=== PATIENT | female | born 1950 | race Caucasian/White ===

== ENCOUNTER 2018-08-24 17:27 | Inpatient (IN) | payer MEDICARE ==
[~2018-08-24] VITALS: Ht 157.5 cm; Wt 73.8 kg
[2018-08-24] MEDS ORDERED: ASPIRIN 81 MG TAB PO ONE (19:30)
--- NOTE | 2018-08-24 19:37 | ERD ---
ER Documentation Chief Complaint Chief Complaint prerssure like chect pain x 3 weeks got worse today; numbness on fingers HPI This is a very pleasant 67-year-old female history of hypertension who presents to the emergency room complaining of chest pain. The patient has had approximately 3 to 4 weeks of symptoms that include central chest pressure that is usually worse with exertion. Today she had some shortness of breath and n umbness and tingling. She has no chest pain currently. She denies pleuritic pain fevers chills or hemoptysis. During the patient's encounter translation services were utilized Language: Bahamian Source: Family ROS All systems reviewed and are negative except as per history of present illness. Allergies Allergies: Coded Allergies: No Known Allergy (Unverified , 08/24/18) Physical Exam Vitals Vital Signs Date Temp Pulse Resp B/P (MAP) Pulse Ox O2 O2 Flow FiO2 Time Delivery Rate 08/24/18 98.6 91 18 182/86 98 17:34 (118) Physical Exam General: Well developed, well nourished, no acute distress Head: Normocephalic, atraumatic. Eyes: Pupils equally reactive, EOM intact ENT: Moist mucous membranes Neck: Supple, no lymphadenopathy Respiratory: Lungs clear bilaterally, no distress Cardiovascular: RRR, no murmurs, rubs, or gallops Abdominal: Soft, non-tender, non-distended, no peritoneal signs : Deferred MSK: No edema, no unilateral swelling, 5/5 strength Neurologic: Alert and oriented, moving all extremities, normal speech, no focal weakness, no cerebellar signs Skin: No rash Psych: Normal mood Result Diagram: 08/24/18190408/24/181904 Results 24 hrs Laboratory Tests Test 08/24/18 19:05 White Blood Count 5.8 10^3/ul Red Blood Count 4.75 10^6/ul Hemoglobin 13.2 g/dl Hematocrit 41.4 % Mean Corpuscular Volume 87.2 fl Mean Corpuscular Hemoglobin 27.8 pg Mean Corpuscular Hemoglobin Concent 31.9 g/dl Red Cell Distribution Width 13.1 % Platelet Count 261 10^3/UL Mean Platelet Volume 11.3 fl Immature Granulocytes % 0.200 % Neutrophils % 53.6 % Lymphocytes % 38.8 % Monocytes % 4.8 % Eosinophils % 1.9 % Basophils % 0.7 % Nucleated Red Blood Cells % 0.0 /100WBC Immature Granulocytes # 0.010 10^3/ul Neutrophils # 3.1 10^3/ul Lymphocytes # 2.3 10^3/ul Monocytes # 0.3 10^3/ul Eosinophils # 0.1 10^3/ul Basophils # 0.0 10^3/ul Nucleated Red Blood Cells # 0.0 10^3/ul Sodium Level 143 mmol/L Potassium Level 4.0 mmol/L Chloride Level 105 mmol/L Carbon Dioxide Level 29 mmol/L Anion Gap 9 Blood Urea Nitrogen 12 mg/dl Creatinine 1.02 mg/dl Est Glomerular Filtrat Rate mL/min 54 mL/min Glucose Level 170 mg/dl Calcium Level 9.8 mg/dl Troponin I < 0.012 ng/ml Current Medications Medications Dose Sig/Rosario Start Time Status Last (Trade) Ordered Route PRN Stop Time Admin Dose Reason Admin Aspirin 324 mg ONCE ONCE 08/24/18 DC (Aspirin) PO 19:30 08/24/18 19:31 Procedures/MDM EKG, MONITORS, & DIAGNOSTIC IMAGING: EKG: I reviewed and interpreted a 12-lead EKG. Rhythm: Normal sinus rhythm ST Changes: No contiguous ST segment elevations T waves: No contiguous T wave inversions Impression: [No evidence of acute cardiac ischemia] Repeat EKG: EKG: I reviewed and interpreted a 12-lead EKG. Rhythm: Normal sinus rhythm ST Changes: No contiguous ST segment elevations T waves: Inferolateral TWI, new Impression: Abnormal EKG Chest x-ray: I reviewed and interpreted a 1 view of the chest Mediastinum: No enlargement Cardiac silhouette: No cardiomegaly Airspace: Clear lung kelley bilaterally without evidence of pneumothorax Bones: No evidence of fracture PROCEDURES: [None] LAB INTERPRETATION: * Negative troponin MEDICAL DECISION MAKING: The patient's history, physical exam and clinical presentation is concerning for possible cardiogenic etiology and acute coronary syndrome. Based on the patient's clinical exam and history and risk factors, I have a much lower clinical concern for pulmonary embolism, acute aortic dissection, pn eumothorax, pneumonia, cardiac tamponade HEART Score: 5 MACE Rate: up to 16.6% Shared Decision Making: We had a conversation regarding risk stratification, MACE rate, and the risks, benefits, alternatives of disposition planning options. Disposition planning: Admit ER COURSE: * No chest pain currently. Aspirin provided. * Patient remains asymptomatic. The patient will be admitted for further m anagement. CONSULTATION: [None] DISPOSITION PLAN: Telemetry admission for management of chest pain to rule out acute coronary syndrome, serial enzymes, risk stratification and consideration of provocative testing CONSULTATION: Accepting care team and consultations: I discussed the current laboratory data, diagnostic imaging and emergency care provided. Admitting team: Dr. Novak Admitting team indication: Insurance directed Departure Diagnosis: Primary Impression: Chest pain Chest pain type: unspecified Qualified Codes: R07.9 - Chest pain, unspecified Condition: Stable ZELDA RED MD August 24, 2018 19:36
[2018-08-24] MEDS ORDERED: ONDANSETRON 4 MG INJ IV PRN (20:00)
[2018-08-24] MEDS ORDERED: ACETAMINOPHEN 325 MG TAB PO PRN ×2 (20:00→23:00)
[2018-08-24 21:43] VITALS: PULSE 56
[2018-08-24 21:54] VITALS: Ht 157.5 cm; Wt 73.8 kg
[2018-08-24] MEDS ORDERED: LISI10TA2 PO (22:42)
[2018-08-24] MEDS ORDERED: PANT20TA3 PO (22:42)
[2018-08-24] MEDS ORDERED: NITROGLYCERIN (SL) 0.4 MG TAB SL PRN (23:00)
[2018-08-24] MEDS ORDERED: NACL 0.9% 3 ML SYG IV SCH (23:00)
[2018-08-24] MEDS ORDERED: ALPRAZOLAM 1 MG TAB PO ONE (23:00)
--- NOTE | 2018-08-24 23:02 | HP ---
Date/Time of Note Date/Time of Note DATE: 08/24/18 TIME: 23:02 Assessment/Plan VTE Prophylaxis Pharmacological prophylaxis: heparin Lines/Catheters IV Catheter Type (from Nrsg): Saline Lock Assessment/Plan Assessment/Plan 1. Chest pain: Rule out ACS -Supplemental oxygen, aspirin, as needed nitro -Serial troponin and 2D echo -Cardiology consult -Check A1c, fasting lipid and TSH in a.m. -Continue Protonix as it may be from GERD 2. Hypertension: Adjust antihypertensive as needed 3. Probable diabetes diabetes: Check A1c in a.m. 4. Mild renal insufficiency, presumed acute -Monitor for now. Avoid nephrotoxins 5. Gastritis: Continue Protonix Result Diagram: 08/24/18190408/24/181904 Results 24hrs Laboratory Tests Test 08/24/18 19:05 White Blood Count 5.8 Red Blood Count 4.75 Hemoglobin 13.2 Hematocrit 41.4 Mean Corpuscular Volume 87.2 Mean Corpuscular Hemoglobin 27.8 L Mean Corpuscular Hemoglobin Concent 31.9 L Red Cell Distribution Width 13.1 Platelet Count 261 Mean Platelet Volume 11.3 H Immature Granulocytes % 0.200 Neutrophils % 53.6 Lymphocytes % 38.8 Monocytes % 4.8 Eosinophils % 1.9 Basophils % 0.7 Nucleated Red Blood Cells % 0.0 Immature Granulocytes # 0.010 Neutrophils # 3.1 Lymphocytes # 2.3 Monocytes # 0.3 Eosinophils # 0.1 Basophils # 0.0 Nucleated Red Blood Cells # 0.0 Sodium Level 143 Potassium Level 4.0 Chloride Level 105 Carbon Dioxide Level 29 Anion Gap 9 Blood Urea Nitrogen 12 Creatinine 1.02 H Est Glomerular Filtrat Rate mL/min 54 L Glucose Level 170 Calcium Level 9.8 Troponin I < 0.012 HPI/ROS Admit Date/Time Admit Date/Time August 24, 2018 at 19:57 Hx of Present Illness This is a 67-year-old female with a history of hypertension, type 2 diabetes, dyslipidemia, gastritis who presented to ER complaining of chest pain. Chest pain is mainly localized in the mid chest and described as tightness and sharp. Is been going on for about a month. But somehow worse on exertion and also reported minimal shortness of breath. In the ER, first troponin was negative and second EKG shows inferolateral T wave inversion. PMH/Family/Social Past Medical History Medical History: diabetes, high cholesterol, hypertension Medications Current Medications Ondansetron HCl (Zofran Inj) 4 mg ER BRIDGE PRN IV NAUSEA/VOMITING; Start 08/24/18 at 20:00; Stop 08/25/18 at 19:59 Acetaminophen (Tylenol Tab) 650 mg ER BRIDGE PRN PO .MILD PAIN 1-3 OR TEMP; Start 08/24/18 at 20:00; Stop 08/25/18 at 19:59 Coded Allergies: No Known Allergy (Unverified , 08/24/18) Past Surgical History Past Surgical Hx: other (See HPI) Family History Significant Family History: no pertinent family hx Social History Alcohol Use: none Smoking Status: Never smoker Drug Use: none Exam/Review of Systems Vital Signs Vitals Vital Signs Date Temp Pulse Resp B/P (MAP) Pulse Ox O2 O2 Flow FiO2 Time Delivery Rate 08/24/18 56 21:43 08/24/18 98.6 14 143/67 100 Room Air 21:12 (92) Exam Constitutional: alert, oriented, well developed Head: normocephalic, atraumatic Eyes: EOMI, PERRL Respiratory: clear to auscultation, normal air movement Cardiovascular: regular rate and rhythm, nl pulses Gastrointestinal: soft, non-tender Extremities: normal pulses EM SPIVEY MD August 24, 2018 23:02
[2018-08-25] VITALS (13 sets, daily range): BP systolic 112–127; BP diastolic 56–77; PULSE 54–83; RESP 18–20
[2018-08-25] MEDS: PANTOPRAZOLE SODIUM 20 MG TABEC PO SCH ×2 (06:55→18:37)
--- NOTE | 2018-08-25 10:45 | CONS ---
Assessment/Plan Assessment/Plan Hospital Course (Demo Recall) 1. Chest pain consistent with possible unstable angina/acute coronary syndrome 2. Hypertension 3. Diabetes 4. Dyslipidemia 5. Abnormal EKG 6. Family history of coronary artery disease Recommendations: Troponin have been negative so far and currently patient is chest pain-free. Continue with aspirin Lipitor was added Diabetic management as per internal medicine We will schedule patient for stress nuclear study today. If abnormal will proceed with a coronary angiography. Above discussed with the patient and her daughter. Thank you for his referral. We will continue following with you FRANKY HUDSON MD [facility] Consultation Date/Type/Reason Admit Date/Time August 24, 2018 at 19:57 Date of Consultation: August 25, 2018 Type of Consult Cardiology Reason for Consultation CP Requesting Provider: JORGE A ALLEN MD Date/Time of Note DATE: 08/25/18 TIME: 10:39 Hx of Present Illness Interventional cardiology consultation note Chief complaint: Chest pain Reason for consult: Chest pain History of present illness: Thank you for this referral. History was from the patient from review of the chart discussion with her daughter. This is a pleasant 68 woman with history of hypertension, borderline diabetes, dyslipidemia, strong family history of coronary artery who presents to the emergency room because of chest pain. Patient stated over the past 3 weeks he has intermittent chest pain anteriorly pressure-like. Feeling of tightness in her throat. He usually comes when she does activity. However it has been getting worse and has been getting intermittently at rest as well. Patient states that she was seen by her primary care doctor yesterday because of this pain and was referred to the emergency room. Currently patient is chest pain- free. Troponin have been negative. Cardiology consultation was asked for. Allergies: No known drug allergies Medications were reviewed as per medical reconciliation sheet. She states she takes cholesterol medication as well as blood pressure medication. Her diabetic medication does not take it regularly Family history: Multiple family members including brother sister) have had coronary artery disease and [place] Social history: Does not smoke or drink Past medical history: Borderline diabetes, hypertension, dyslipidemia Review of system: + intermittent headache. Also at nighttime sometimes he gets short of breath when she lies down and she has sleep on the side Patient denies all others except for above-mentioned Past Medical History Home Meds Reported Medications Pantoprazole* (Pantoprazole*) 20 Mg Tablet., 20 MG PO BID, TAB 08/24/18 Lisinopril* (Lisinopril*) 10 Mg Tablet, 10 MG PO DAILY, #30 TAB 08/24/18 Medications Current Medications Ondansetron HCl (Zofran Inj) 4 mg ER BRIDGE PRN IV NAUSEA/VOMITING; Start 08/24/18 at 20:00; Stop 08/25/18 at 19:59 Acetaminophen (Tylenol Tab) 650 mg ER BRIDGE PRN PO .MILD PAIN 1-3 OR TEMP Last administered on 08/25/18at 07:04; Admin Dose 650 MG; Start 08/24/18 at 20:00; Stop 08/25/18 at 19:59 IV Flush (NS 3 ml) 3 ml PER PROTOCOL IV ; Start 08/24/18 at 23:00 Ondansetron HCl (Zofran Inj) 4 mg Q6H PRN IV NAUSEA/VOMITING; Start 08/24/18 at 23:00 Aspirin (Aspirin) 81 mg DAILY PO ; Start 08/25/18 at 09:00 Nitroglycerin (Nitroglycerin (Sl Tab) 0.4 Mg) 1 tab Q5M PRN SL .CHEST PAIN; Start 08/24/18 at 23:00 Acetaminophen (Tylenol Tab) 650 mg Q6H PRN PO .PAIN 1-3 OR TEMP; Start 08/24/18 at 23:00 Heparin Sodium (Porcine) (Heparin (5000 Units/1ml)) 5,000 unit Q12 SC ; Start 08/25/18 at 09:00 Albuterol/ Ipratropium (Duoneb) 3 ml Q2H RESP THERAPY PRN HHN SHORTNESS OF BREATH; Start 08/24/18 at 23:00 Lisinopril (Zestril) 10 mg DAILY PO ; Start 08/25/18 at 09:00 Pantoprazole Sodium (Protonix) 20 mg BID@0600,1800 PO Last administered on 08/25/18at 06:55; Admin Dose 20 MG; Start 08/25/18 at 06:00 Allergies: Coded Allergies: No Known Allergy (Unverified , 08/24/18) Past Surgical History Past Surgical Hx: other (See HPI) Social History Alcohol Use: none Smoking Status: Never smoker Drug Use: none Exam/Review of Systems Vital Signs Vitals Vital Signs Date Temp Pulse Resp B/P (MAP) Pulse Ox O2 O2 Flow FiO2 Time Delivery Rate 08/25/18 77 08:00 08/25/18 98.1 19 117/69 98 07:55 (85) 08/25/18 Room Air 00:25 Intake and Output 08/24/18 08/24/18 08/25/18 1515:00 23:00 07:00 IntakeIntake Total 440 ml BalanceBalance 440 ml Exam Exam General: no acute distress HEENT: NC/AT. pupils are equal. round. NECK: NO JVD. no stridor. CV: RRR. systolic murmur; no gallop or rubs. PULM: no wheezing or rhonchi. GI: SOFT, NT, ND, no rebound or guarding Extremity: trace B/L LE edema. no clubbing. neuro: awake and alert, OX3. Psych: calm and pleasant rectal: deferred EKG was personally reviewed and normal sinus rhythm nonspecific ST-T wave abnormalities Chest x-ray shows: No acute disease. Calcified aorta consistent with atherosclerotic disease Labs Result Diagram: 08/25/1862608/25/18 06 Results 24hrs Laboratory Tests Test 08/24/18 19:05 08/25/18 00:40 08/25/18 06:27 White Blood Count 5.8 5.3 Red Blood Count 4.75 4.53 Hemoglobin 13.2 12.5 Hematocrit 41.4 39.5 Mean Corpuscular Volume 87.2 87.2 Mean Corpuscular Hemoglobin 27.8 L 27.6 L Mean Corpuscular Hemoglobin Concent 31.9 L 31.6 L Red Cell Distribution Width 13.1 13.2 Platelet Count 261 248 Mean Platelet Volume 11.3 H 11.3 H Immature Granulocytes % 0.200 0.200 Neutrophils % 53.6 39.1 Lymphocytes % 38.8 50.5 Monocytes % 4.8 6.1 Eosinophils % 1.9 3.2 Basophils % 0.7 0.9 Nucleated Red Blood Cells % 0.0 0.0 Immature Granulocytes # 0.010 0.010 Neutrophils # 3.1 2.1 Lymphocytes # 2.3 2.7 Monocytes # 0.3 0.3 Eosinophils # 0.1 0.2 Basophils # 0.0 0.1 Nucleated Red Blood Cells # 0.0 0.0 Sodium Level 143 141 Potassium Level 4.0 4.4 Chloride Level 105 107 Carbon Dioxide Level 29 25 Anion Gap 9 9 Blood Urea Nitrogen 12 15 Creatinine 1.02 H 0.71 Est Glomerular Filtrat Rate mL/min 54 L > 60 Glucose Level 170 111 # Calcium Level 9.8 9.9 Troponin I < 0.012 < 0.012 < 0.012 Creatine Kinase 163 133 Creatine Kinase Index 1.2 1.1 Creatinine Kinase MB (Mass) 1.95 1.48 Hemoglobin A1c 5.9 Magnesium Level 2.2 Total Bilirubin 0.2 Direct Bilirubin 0.00 Indirect Bilirubin 0.2 Aspartate Amino Transf (AST/SGOT) 10 L Alanine Aminotransferase (ALT/SGPT) 20 Alkaline Phosphatase 61 Total Protein 6.8 Albumin 4.0 Globulin 2.80 Albumin/Globulin Ratio 1.42 Triglycerides Level 105 Cholesterol Level 188 LDL Cholesterol, Calculated 131 HDL Cholesterol 36 Cholesterol/HDL Ratio 5.2 Thyroid Stimulating Hormone (TSH) 0.752 Medications Medications Current Medications Ondansetron HCl (Zofran Inj) 4 mg ER BRIDGE PRN IV NAUSEA/VOMITING; Start 08/24/18 at 20:00; Stop 08/25/18 at 19:59 Acetaminophen (Tylenol Tab) 650 mg ER BRIDGE PRN PO .MILD PAIN 1-3 OR TEMP Last administered on 08/25/18at 07:04; Admin Dose 650 MG; Start 08/24/18 at 20:00; Stop 08/25/18 at 19:59 IV Flush (NS 3 ml) 3 ml PER PROTOCOL IV ; Start 08/24/18 at 23:00 Ondansetron HCl (Zofran Inj) 4 mg Q6H PRN IV NAUSEA/VOMITING; Start 08/24/18 at 23:00 Aspirin (Aspirin) 81 mg DAILY PO ; Start 08/25/18 at 09:00 Nitroglycerin (Nitroglycerin (Sl Tab) 0.4 Mg) 1 tab Q5M PRN SL .CHEST PAIN; Start 08/24/18 at 23:00 Acetaminophen (Tylenol Tab) 650 mg Q6H PRN PO .PAIN 1-3 OR TEMP; Start 08/24/18 at 23:00 Heparin Sodium (Porcine) (Heparin (5000 Units/1ml)) 5,000 unit Q12 SC ; Start 08/25/18 at 09:00 Albuterol/ Ipratropium (Duoneb) 3 ml Q2H RESP THERAPY PRN HHN SHORTNESS OF BREATH; Start 08/24/18 at 23:00 Lisinopril (Zestril) 10 mg DAILY PO ; Start 08/25/18 at 09:00 Pantoprazole Sodium (Protonix) 20 mg BID@0600,1800 PO Last administered on 08/25/18at 06:55; Admin Dose 20 MG; Start 08/25/18 at 06:00 FRANKY HUDSON MD August 25, 2018 10:45
[2018-08-25] MEDS: LISINOPRIL 10 MG TAB PO SCH (10:54)
[2018-08-25] MEDS: ASPIRIN 81 MG TAB PO SCH (10:54)
[2018-08-25] MEDS: HEPARIN 5,000 UNIT/1 ML VIAL SC SCH ×2 (11:06→21:33)
--- NOTE | 2018-08-25 12:05 | PN ---
Date/Time of Note Date/Time of Note DATE: 08/25/18 TIME: 12:03 Assessment/Plan VTE Prophylaxis SCD contraindicated: low risk/ambulating Pharmacological prophylaxis: heparin Pharm contraindication: low risk/ambulating Lines/Catheters IV Catheter Type (from Nrsg): Saline Lock Assessment/Plan Problems: (1) Chest pain Status: Acute Comment: Further troponins are negative. However getting the history from this patient this sounds very consistent with crescendo angina. As such I am in agreement with cardiology that she needs to have a stress test now before she leaves the hospital and if the stress test and said any type of abnormality we should proceed with coronary angiography. Qualifiers: Chest pain type: unspecified Qualified Codes: R07.9 - Chest pain, unspecified (2) Essential hypertension Status: Chronic Comment: Adequate control with EARLENE inhibitor. (3) Hyperlipidemia Status: Chronic Comment: Statin therapy Qualifiers: Hyperlipidemia type: pure hypercholesterolemia Qualified Codes: E78.00 - Pure hypercholesterolemia, unspecified Result Diagram: 08/25/1827 08/25/18626 Results 24hrs Laboratory Tests Test 08/24/18 19:05 08/25/18 00:40 08/25/18 06:27 White Blood Count 5.8 5.3 Red Blood Count 4.75 4.53 Hemoglobin 13.2 12.5 Hematocrit 41.4 39.5 Mean Corpuscular Volume 87.2 87.2 Mean Corpuscular Hemoglobin 27.8 L 27.6 L Mean Corpuscular Hemoglobin Concent 31.9 L 31.6 L Red Cell Distribution Width 13.1 13.2 Platelet Count 261 248 Mean Platelet Volume 11.3 H 11.3 H Immature Granulocytes % 0.200 0.200 Neutrophils % 53.6 39.1 Lymphocytes % 38.8 50.5 Monocytes % 4.8 6.1 Eosinophils % 1.9 3.2 Basophils % 0.7 0.9 Nucleated Red Blood Cells % 0.0 0.0 Immature Granulocytes # 0.010 0.010 Neutrophils # 3.1 2.1 Lymphocytes # 2.3 2.7 Monocytes # 0.3 0.3 Eosinophils # 0.1 0.2 Basophils # 0.0 0.1 Nucleated Red Blood Cells # 0.0 0.0 Sodium Level 143 141 Potassium Level 4.0 4.4 Chloride Level 105 107 Carbon Dioxide Level 29 25 Anion Gap 9 9 Blood Urea Nitrogen 12 15 Creatinine 1.02 H 0.71 Est Glomerular Filtrat Rate mL/min 54 L > 60 Glucose Level 170 111 # Calcium Level 9.8 9.9 Troponin I < 0.012 < 0.012 < 0.012 Creatine Kinase 163 133 Creatine Kinase Index 1.2 1.1 Creatinine Kinase MB (Mass) 1.95 1.48 Hemoglobin A1c 5.9 Magnesium Level 2.2 Total Bilirubin 0.2 Direct Bilirubin 0.00 Indirect Bilirubin 0.2 Aspartate Amino Transf (AST/SGOT) 10 L Alanine Aminotransferase (ALT/SGPT) 20 Alkaline Phosphatase 61 Total Protein 6.8 Albumin 4.0 Globulin 2.80 Albumin/Globulin Ratio 1.42 Triglycerides Level 105 Cholesterol Level 188 LDL Cholesterol, Calculated 131 HDL Cholesterol 36 Cholesterol/HDL Ratio 5.2 Thyroid Stimulating Hormone (TSH) 0.752 Subjective 24 Hr Interval Summary Free Text/Dictation Patient reports at rest no further symptoms. Constitutional: no complaints Respiratory: no complaints Cardiovascular: no complaints Gastrointestinal: no complaints Genitourinary: no complaints Exam/Review of Systems Exam Vitals Vital Signs Date Temp Pulse Resp B/P (MAP) Pulse Ox O2 O2 Flow FiO2 Time Delivery Rate 08/25/18 98.6 79 19 116/77 97 11:37 (90) 08/25/18 Room Air 00:25 Intake and Output 08/24/18 08/24/18 08/25/18 1515:00 23:00 07:00 IntakeIntake Total 440 ml BalanceBalance 440 ml Exam Pleasant and somewhat stoic female Constitutional: alert, oriented Respiratory: clear to auscultation, normal air movement Cardiovascular: regular rate and rhythm, nl pulses Gastrointestinal: soft, nl liver, spleen, non-tender Results Results 24hrs Laboratory Tests Test 08/24/18 19:05 08/25/18 00:40 08/25/18 06:27 White Blood Count 5.8 5.3 Red Blood Count 4.75 4.53 Hemoglobin 13.2 12.5 Hematocrit 41.4 39.5 Mean Corpuscular Volume 87.2 87.2 Mean Corpuscular Hemoglobin 27.8 L 27.6 L Mean Corpuscular Hemoglobin Concent 31.9 L 31.6 L Red Cell Distribution Width 13.1 13.2 Platelet Count 261 248 Mean Platelet Volume 11.3 H 11.3 H Immature Granulocytes % 0.200 0.200 Neutrophils % 53.6 39.1 Lymphocytes % 38.8 50.5 Monocytes % 4.8 6.1 Eosinophils % 1.9 3.2 Basophils % 0.7 0.9 Nucleated Red Blood Cells % 0.0 0.0 Immature Granulocytes # 0.010 0.010 Neutrophils # 3.1 2.1 Lymphocytes # 2.3 2.7 Monocytes # 0.3 0.3 Eosinophils # 0.1 0.2 Basophils # 0.0 0.1 Nucleated Red Blood Cells # 0.0 0.0 Sodium Level 143 141 Potassium Level 4.0 4.4 Chloride Level 105 107 Carbon Dioxide Level 29 25 Anion Gap 9 9 Blood Urea Nitrogen 12 15 Creatinine 1.02 H 0.71 Est Glomerular Filtrat Rate mL/min 54 L > 60 Glucose Level 170 111 # Calcium Level 9.8 9.9 Troponin I < 0.012 < 0.012 < 0.012 Creatine Kinase 163 133 Creatine Kinase Index 1.2 1.1 Creatinine Kinase MB (Mass) 1.95 1.48 Hemoglobin A1c 5.9 Magnesium Level 2.2 Total Bilirubin 0.2 Direct Bilirubin 0.00 Indirect Bilirubin 0.2 Aspartate Amino Transf (AST/SGOT) 10 L Alanine Aminotransferase (ALT/SGPT) 20 Alkaline Phosphatase 61 Total Protein 6.8 Albumin 4.0 Globulin 2.80 Albumin/Globulin Ratio 1.42 Triglycerides Level 105 Cholesterol Level 188 LDL Cholesterol, Calculated 131 HDL Cholesterol 36 Cholesterol/HDL Ratio 5.2 Thyroid Stimulating Hormone (TSH) 0.752 Medications Medication Current Medications IV Flush (NS 3 ml) 3 ml PER PROTOCOL IV ; Start 08/24/18 at 23:00 Ondansetron HCl (Zofran Inj) 4 mg Q6H PRN IV NAUSEA/VOMITING; Start 08/24/18 at 23:00 Aspirin (Aspirin) 81 mg DAILY PO Last administered on 08/25/18at 10:54; Admin Dose 81 MG; Start 08/25/18 at 09:00 Nitroglycerin (Nitroglycerin (Sl Tab) 0.4 Mg) 1 tab Q5M PRN SL .CHEST PAIN; Start 08/24/18 at 23:00 Acetaminophen (Tylenol Tab) 650 mg Q6H PRN PO .PAIN 1-3 OR TEMP; Start 08/24/18 at 23:00 Heparin Sodium (Porcine) (Heparin (5000 Units/1ml)) 5,000 unit Q12 SC Last administered on 08/25/18at 11:06; Admin Dose 5,000 UNIT; Start 08/25/18 at 09:00 Albuterol/ Ipratropium (Duoneb) 3 ml Q2H RESP THERAPY PRN HHN SHORTNESS OF BREATH; Start 08/24/18 at 23:00 Lisinopril (Zestril) 10 mg DAILY PO Last administered on 08/25/18at 10:54; Admin Dose 10 MG; Start 08/25/18 at 09:00 Pantoprazole Sodium (Protonix) 20 mg BID@0600,1800 PO Last administered on 08/25/18at 06:55; Admin Dose 20 MG; Start 08/25/18 at 06:00 Atorvastatin Calcium (Lipitor) 80 mg HS PO ; Start 08/25/18 at 21:00 JORGE A ALLEN MD August 25, 2018 12:05
--- NOTE | 2018-08-25 13:50 | RADRPT ---
Echocardiogram Report Patient Name: DELIA COXPatient ID: [id number] : 1950 (67y 9m)Study Date: 08/25/2018 11:09:03 AM Gender: FAccession #: [id number] [place] [facility] [place] Location: Ref.Physician: LOUIS SHARIF Height(Cm): 157 BSA: 1.79Weight(Kg): 73.5 Quality: AdequateAccount #: Procedures: Echocardiographic Report: Transthoracic echocardiogram with complete 2D, M-Mode, and Doppler examination, poor subcostal images. Indications: Acute Coronary Syndrome. Measurements: 2D/M Mode Doppler Measurement Value Normal Range Measurement Value Normal Range LVIDd 2D 4.3 [ 3.8 - 5.2 ] cm AV Peak J Luis 1.1 [ 100.0 - 170.0 ] cm/se c LVIDs 2D 2.7 [ 2.2 - 3.5 ] cm AV Peak PG 5.0 [ 2.0 - 9.0 ] mmHg LVPWd 2D 0.7 [ 0.6 - 0.9 ] cm LVOT Peak J Luis 0.8 [ 70.0 - 110.0 ] cm/sec IVSd 2D 0.9 [ 0.6 - 0.9 ] cm LVOT Peak PG 3.0 [ 2.0 - 6.0 ] mmHg AoR Diam 2D 3.1 [ 2.3 - 3.1 ] cm MV E Peak J Luis 0.7 [ 60.0 - 130.0 ] cm/sec EDV 2D 84.9 [ 46.0 - 106.0 ] ml MV A Peak J Luis 0.9 [ 100.0 - 120.0 ] cm/se c ESV 2D 27.8 [ 14.0 - 42.0 ] ml MV E/A 0.8 [ 0.8 - 1.5 ] ratio EF 2D 67.3 [ 54.0 - 74.0 ] percent MV PHT 68.0 [ 20.0 - 100.0 ] msec LA Dimen 2D 3.6 [ 2.7 - 3.8 ] cm MV Decel Time 232 [ 104 - 258 ] msec MV Decel [place] 3 Lat E` J Luis 0.1 [ 10.0 - 15.0 ] cm/sec Lateral E/E` 7.1 [ 1.0 - 2.0 ] ratio Med E` J Luis 0.1 cm/sec MV E/A 0.8 [ 0.8 - 1.5 ] ratio MVA PHT 3.2 [ 2.0 - 4.0 ] cm2 TR Peak J Luis 2.0 [ 100.0 - 280.0 ] cm/se c TR Peak PG 17.0 mmHg PV Peak J Luis 0.8 [ 40.0 - 80.0 ] cm/sec PV Peak PG 2.0 mmHg RVSP 27.0 [ 10.0 - 36.0 ] mmHg RA Pressure 10.0 mmHg Findings: Left Ventricle: Normal left ventricular systolic function. Normal left ventricular cavity size. Ejection fraction is visually estimated at 60 %. Tissue Doppler/Mitral Doppler indices are consistent with impaired relaxation (Stage I diastolic dysfunction). E/E'= 9. Right Ventricle: Normal right ventricular size. Normal right ventricular systolic function. Left Atrium: The left atrium is normal in size. Right Atrium: The right atrium is normal in size. Atrial Septum: Not well visualized. Mitral Valve: Normal appearance and function of the mitral valve with trace physiologic regurgitation. Aortic Valve: No significant aortic stenosis or insufficiency. Aortic cusps appear mildly calcified. Trileaflet aortic valve. Tricuspid Valve: Normal appearance and function of the tricuspid valve with trace physiologic regurgitation. Estimated peak PA systolic pressure 27 mmHg. Pulmonic Valve: Normal pulmonic valve appearance. There is trace pulmonic regurgitation. Pericardium: Normal pericardium with no significant pericardial effusion. Aorta: Normal aortic root. IVC: The IVC is not well visualized. Pulmonary Artery: Normal pulmonary artery size. Conclusions: Normal left ventricular systolic function. Normal left ventricular cavity size. Ejection fraction is visually estimated at 60 %. Tissue Doppler/Mitral Doppler indices are consistent with impaired relaxation (Stage I diastolic dysfunction). E/E'= 9. Normal appearance and function of the mitral valve with trace physiologic regurgitation. No significant aortic stenosis or insufficiency. Aortic cusps appear mildly calcified. Trileaflet aortic valve. Normal appearance and function of the tricuspid valve with trace physiologic regurgitation. Estimated peak PA systolic pressure 27 mmHg. g. Electronically Signed By: Louis Sharif 2018-08-25 13:48:54 PDT
[2018-08-25] MEDS: ACETYLCYSTEINE 600 MG CAP PO SCH ×2 (15:44→21:22)
[2018-08-25] MEDS: RANOLAZINE (SR) 500 MG TAB PO SCH (21:22)
[2018-08-25] MEDS: ATORVASTATIN 80 MG TAB PO SCH (21:22)
[2018-08-25] MEDS ORDERED: ALPRAZOLAM 1 MG TAB PO ONE (22:30)
[2018-08-26] VITALS (20 sets, daily range): BP systolic 110–151; BP diastolic 57–89; PULSE 61–79; RESP 14–20
[2018-08-26] MEDS: PANTOPRAZOLE SODIUM 20 MG TABEC PO SCH ×2 (05:28→18:23)
[2018-08-26] MEDS: RANOLAZINE (SR) 500 MG TAB PO SCH ×2 (07:32→21:44)
[2018-08-26] MEDS: LISINOPRIL 10 MG TAB PO SCH (07:32)
[2018-08-26] MEDS: ACETYLCYSTEINE 600 MG CAP PO SCH ×2 (07:32→21:45)
[2018-08-26] MEDS: METOPROLOL (XL) 25 MG TAB PO SCH (07:32)
[2018-08-26] MEDS: HEPARIN 5,000 UNIT/1 ML VIAL SC SCH (07:32)
[2018-08-26] MEDS: ASPIRIN 81 MG TAB PO SCH (09:12)
--- NOTE | 2018-08-26 11:13 | PN ---
Date/Time of Note Date/Time of Note DATE: 08/26/18 TIME: 11:11 Assessment/Plan VTE Prophylaxis Risk score (from Ns)>0 risk: 4 SCD applied (from Ns): Yes Pharmacological prophylaxis: heparin Lines/Catheters IV [facility]ter [facility]from [facility] Saline Lock Assessment/Plan Problems: (1) Chest pain Status: Acute Comment: Fortunately we do not have any evidence of myocardial injury. However this would classify itself as crescendo and unstable angina. I am in agreement with the station master that left heart catheterization should be done with all possible expediency. Qualifiers: Chest pain type: unspecified Qualified Codes: R07.9 - Chest pain, unspecified (2) Essential hypertension Status: Chronic Comment: Adequate control. He is to beta-blockade under this circumstance (3) Hyperlipidemia Status: Chronic Comment: Full dose statin therapy Qualifiers: Hyperlipidemia type: pure hypercholesterolemia Qualified Codes: E78.00 - Pure hypercholesterolemia, unspecified (4) Impaired glucose tolerance Status: Chronic Comment: Noted. Result Diagram: 08/26/18 0536 08/26/18 0536 Results 24hrs Laboratory Tests Test 08/26/18 05:36 White Blood Count 5.4 Red Blood Count 4.67 Hemoglobin 12.8 Hematocrit 40.9 Mean Corpuscular Volume 87.6 Mean Corpuscular Hemoglobin 27.4 L Mean Corpuscular Hemoglobin Concent 31.3 L Red Cell Distribution Width 13.2 Platelet Count 245 Mean Platelet Volume 11.6 H Immature Granulocytes % 0.400 Neutrophils % 40.1 Lymphocytes % 49.4 Monocytes % 5.9 Eosinophils % 3.3 Basophils % 0.9 Nucleated Red Blood Cells % 0.0 Immature Granulocytes # 0.020 Neutrophils # 2.2 Lymphocytes # 2.7 Monocytes # 0.3 Eosinophils # 0.2 Basophils # 0.1 Nucleated Red Blood Cells # 0.0 Prothrombin Time 13.1 Prothrombin Time Ratio 1.0 INR International Normalized Ratio 0.98 Sodium Level 142 Potassium Level 4.1 Chloride Level 108 Carbon Dioxide Level 23 Anion Gap 11 Blood Urea Nitrogen 16 Creatinine 0.74 Est Glomerular Filtrat Rate mL/min > 60 Glucose Level 134 Calcium Level 9.4 Magnesium Level 2.0 Total Bilirubin 0.2 Direct Bilirubin 0.00 Indirect Bilirubin 0.2 Aspartate Amino Transf (AST/SGOT) 12 L Alanine Aminotransferase (ALT/SGPT) 18 Alkaline Phosphatase 78 Creatine Kinase 101 Creatine Kinase Index 1.4 Creatinine Kinase MB (Mass) 1.39 Troponin I < 0.012 Total Protein 7.3 Albumin 3.9 Globulin 3.40 H Albumin/Globulin Ratio 1.14 Subjective 24 Hr Interval Summary Free Text/Dictation At rest patient is without symptoms. Please note when she did her cardiac imaging study she turned rapidly positive. Both symptomatically and by the test criteria Constitutional: no complaints Respiratory: no complaints Cardiovascular: no complaints Gastrointestinal: no complaints Exam/Review of Systems Exam Vitals Vital Signs Date Temp Pulse Resp B/P (MAP) Pulse Ox O2 O2 Flow FiO2 Time Delivery Rate 08/26/18 70 08:00 08/26/18 97.6 20 125/59 96 Room Air 07:40 (81) Intake and Output 08/25/18 08/25/18 08/26/18 1414:59 22:59 06:59 IntakeIntake Total 300 ml 500 ml BalanceBalance 300 ml 500 ml Constitutional: alert, oriented Respiratory: clear to auscultation, normal air movement Cardiovascular: regular rate and rhythm, nl pulses Gastrointestinal: soft, nl liver, spleen, non-tender Results Results 24hrs Laboratory Tests Test 08/26/18 05:36 White Blood Count 5.4 Red Blood Count 4.67 Hemoglobin 12.8 Hematocrit 40.9 Mean Corpuscular Volume 87.6 Mean Corpuscular Hemoglobin 27.4 L Mean Corpuscular Hemoglobin Concent 31.3 L Red Cell Distribution Width 13.2 Platelet Count 245 Mean Platelet Volume 11.6 H Immature Granulocytes % 0.400 Neutrophils % 40.1 Lymphocytes % 49.4 Monocytes % 5.9 Eosinophils % 3.3 Basophils % 0.9 Nucleated Red Blood Cells % 0.0 Immature Granulocytes # 0.020 Neutrophils # 2.2 Lymphocytes # 2.7 Monocytes # 0.3 Eosinophils # 0.2 Basophils # 0.1 Nucleated Red Blood Cells # 0.0 Prothrombin Time 13.1 Prothrombin Time Ratio 1.0 INR International Normalized Ratio 0.98 Sodium Level 142 Potassium Level 4.1 Chloride Level 108 Carbon Dioxide Level 23 Anion Gap 11 Blood Urea Nitrogen 16 Creatinine 0.74 Est Glomerular Filtrat Rate mL/min > 60 Glucose Level 134 Calcium Level 9.4 Magnesium Level 2.0 Total Bilirubin 0.2 Direct Bilirubin 0.00 Indirect Bilirubin 0.2 Aspartate Amino Transf (AST/SGOT) 12 L Alanine Aminotransferase (ALT/SGPT) 18 Alkaline Phosphatase 78 Creatine Kinase 101 Creatine Kinase Index 1.4 Creatinine Kinase MB (Mass) 1.39 Troponin I < 0.012 Total Protein 7.3 Albumin 3.9 Globulin 3.40 H Albumin/Globulin Ratio 1.14 Medications Medication Current Medications IV Flush (NS 3 ml) 3 ml PER PROTOCOL IV ; Start 08/24/18 at 23:00 Ondansetron HCl (Zofran Inj) 4 mg Q6H PRN IV NAUSEA/VOMITING; Start 08/24/18 at 23:00 Aspirin (Aspirin) 81 mg DAILY PO Last administered on 08/26/18at 09:12; Admin Dose 81 MG; Start 08/25/18 at 09:00 Nitroglycerin (Nitroglycerin (Sl Tab) 0.4 Mg) 1 tab Q5M PRN SL .CHEST PAIN; Start 08/24/18 at 23:00 Acetaminophen (Tylenol Tab) 650 mg Q6H PRN PO .PAIN 1-3 OR TEMP; Start 08/24/18 at 23:00 Heparin Sodium (Porcine) (Heparin (5000 Units/1ml)) 5,000 unit Q12 SC Last administered on 08/25/18at 21:33; Admin Dose 5,000 UNIT; Start 08/25/18 at 09:00 Albuterol/ Ipratropium (Duoneb) 3 ml Q2H RESP THERAPY PRN HHN SHORTNESS OF BREATH; Start 08/24/18 at 23:00 Lisinopril (Zestril) 10 mg DAILY PO Last administered on 08/25/18at 10:54; Admin Dose 10 MG; Start 08/25/18 at 09:00 Pantoprazole Sodium (Protonix) 20 mg BID@0600,1800 PO Last administered on 08/25/18at 18:37; Admin Dose 20 MG; Start 08/25/18 at 06:00 Atorvastatin Calcium (Lipitor) 80 mg HS PO Last administered on 08/25/18 21:22; Admin Dose 80 MG; Start 08/25/18 at 21:00 Acetylcysteine (Nac) 1,200 mg BID PO Last administered on 08/25/18 21:22; Admin Dose 1,200 MG; Start 08/25/18 at 12:00; Stop 08/28/18 at 11:59 Metoprolol Succinate (Toprol Xl) 25 mg DAILY PO ; Start 08/26/18 at 09:00 Ranolazine (Ranexa) 500 mg Q12 PO Last administered on 08/25/18at 21:22; Admin Dose 500 MG; Start 08/25/18 at 21:00 JORGE A ALLEN MD August 26, 2018 11:13
--- NOTE | 2018-08-26 13:23 | CONS ---
Consult Date/Type/Reason Admit Date/Time August 24, 2018 at 19:57 Initial Consult Date 08/25/18 Type of Consultation: cv Requesting Provider: JORGE A ALLEN MD Date/Time of Note DATE: 08/26/18 TIME: 13:20 Subjective Interventional cardiology follow-up progress note Subjective: Discussed with the staff telemetry was reviewed. Discussed with Dr. Arana Discussed with patient daughter Patient with no more chest pain or pressure now. Patient however she did have some mild chest pain again this morning. She has not been active and has been mostly bedrest. No bleeding is reported. Objective: Objective Vitals Vital Signs Date Temp Pulse Resp B/P (MAP) Pulse Ox O2 O2 Flow FiO2 Time Delivery Rate 08/26/18 68 12:00 08/26/18 97.9 20 131/62 94 Room Air 11:40 (85) Intake and Output 08/25/18 08/25/18 08/26/18 1414:59 22:59 06:59 IntakeIntake Total 300 ml 500 ml BalanceBalance 300 ml 500 ml Results/Medications Result Diagram: 08/26/18 0536 08/26/18 0536 Results 24 hrs Laboratory Tests Test 08/26/18 05:36 White Blood Count 5.4 Red Blood Count 4.67 Hemoglobin 12.8 Hematocrit 40.9 Mean Corpuscular Volume 87.6 Mean Corpuscular Hemoglobin 27.4 L Mean Corpuscular Hemoglobin Concent 31.3 L Red Cell Distribution Width 13.2 Platelet Count 245 Mean Platelet Volume 11.6 H Immature Granulocytes % 0.400 Neutrophils % 40.1 Lymphocytes % 49.4 Monocytes % 5.9 Eosinophils % 3.3 Basophils % 0.9 Nucleated Red Blood Cells % 0.0 Immature Granulocytes # 0.020 Neutrophils # 2.2 Lymphocytes # 2.7 Monocytes # 0.3 Eosinophils # 0.2 Basophils # 0.1 Nucleated Red Blood Cells # 0.0 Prothrombin Time 13.1 Prothrombin Time Ratio 1.0 INR International Normalized Ratio 0.98 Sodium Level 142 Potassium Level 4.1 Chloride Level 108 Carbon Dioxide Level 23 Anion Gap 11 Blood Urea Nitrogen 16 Creatinine 0.74 Est Glomerular Filtrat Rate mL/min > 60 Glucose Level 134 Calcium Level 9.4 Magnesium Level 2.0 Total Bilirubin 0.2 Direct Bilirubin 0.00 Indirect Bilirubin 0.2 Aspartate Amino Transf (AST/SGOT) 12 L Alanine Aminotransferase (ALT/SGPT) 18 Alkaline Phosphatase 78 Creatine Kinase 101 Creatine Kinase Index 1.4 Creatinine Kinase MB (Mass) 1.39 Troponin I < 0.012 Total Protein 7.3 Albumin 3.9 Globulin 3.40 H Albumin/Globulin Ratio 1.14 Home Meds Reported Medications Pantoprazole* (Pantoprazole*) 20 Mg Tablet.dr, 20 MG PO BID, TAB 08/24/18 Lisinopril* (Lisinopril*) 10 Mg Tablet, 10 MG PO DAILY, #30 TAB 08/24/18 Medications Current Medications IV Flush (NS 3 ml) 3 ml PER PROTOCOL IV ; Start 08/24/18 at 23:00 Ondansetron HCl (Zofran Inj) 4 mg Q6H PRN IV NAUSEA/VOMITING; Start 08/24/18 at 23:00 Aspirin (Aspirin) 81 mg DAILY PO Last administered on 08/26/18at 09:12; Admin Dose 81 MG; Start 08/25/18 at 09:00 Nitroglycerin (Nitroglycerin (Sl Tab) 0.4 Mg) 1 tab Q5M PRN SL .CHEST PAIN; Start 08/24/18 at 23:00 Acetaminophen (Tylenol Tab) 650 mg Q6H PRN PO .PAIN 1-3 OR TEMP; Start 08/24/18 at 23:00 Heparin Sodium (Porcine) (Heparin (5000 Units/1ml)) 5,000 unit Q12 SC Last administered on 08/25/18at 21:33; Admin Dose 5,000 UNIT; Start 08/25/18 at 09:00 Albuterol/ Ipratropium (Duoneb) 3 ml Q2H RESP THERAPY PRN HHN SHORTNESS OF BREATH; Start 08/24/18 at 23:00 Lisinopril (Zestril) 10 mg DAILY PO Last administered on 08/25/18at 10:54; Admin Dose 10 MG; Start 08/25/18 at 09:00 Pantoprazole Sodium (Protonix) 20 mg BID@0600,1800 PO Last administered on 08/25/18at 18:37; Admin Dose 20 MG; Start 08/25/18 at 06:00 Atorvastatin Calcium (Lipitor) 80 mg HS PO Last administered on 08/25/18at 21:22; Admin Dose 80 MG; Start 08/25/18 at 21:00 Acetylcysteine (Nac) 1,200 mg BID PO Last administered on 08/25/18at 21:22; Admin Dose 1,200 MG; Start 08/25/18 at 12:00; Stop 08/28/18 at 11:59 Metoprolol Succinate (Toprol Xl) 25 mg DAILY PO ; Start 08/26/18 at 09:00 Ranolazine (Ranexa) 500 mg Q12 PO Last administered on 08/25/18at 21:22; Admin Dose 500 MG; Start 08/25/18 at 21:00 Assessment/Plan Hospital Course (Demo Recall) 1. Chest pain consistent with unstable angina/acute coronary syndrome with abnormal stress is a submaximal level and current pain currently at rest 2. Hypertension 3. Diabetes 4. Dyslipidemia 5. Abnormal EKG 6. Family history of coronary artery disease Recommendations: Troponin have been negative so far Continue with aspirin Lipitor was added Ranexa has been added beta-regi has been added already Diabetic management as per internal medicine Plan for left heart catheterization coronary angiogram percutaneous coronary intervention. Risks benefits and alternatives of procedure discussed with the patient and her daughters in detail. Risks including but not limited to risk of infection vascular complication bleeding complication [place] stroke arrhythmia renal failure etc. discussed with him. Consent has been obtained. Prosthetic Dentist has already been called this morning to come in. Plan to do the procedure today Thank you for his referral. We will continue following with you FRANKY HUDSON MD [facility] FRANKY HUDSON MD August 26, 2018 13:23
[2018-08-26] MEDS ORDERED: DEXTROSE 5%-0.9% NACL 1,000 ML IV SCH (13:30)
[2018-08-26] MEDS ORDERED: LIDOCAINE 1% (MDV) 20 ML INJ ONE (15:46)
[2018-08-26] MEDS ORDERED: IODIXANOL LOCM 100 ML BTL ONE (15:46)
[2018-08-26] MEDS ORDERED: MIDAZOLAM 1 MG/ML 2 ML INJ ONE (15:47)
[2018-08-26] MEDS ORDERED: FENTAnyl 50 MCG/ML VIAL ONE (15:47)
[2018-08-26] MEDS ORDERED: NITROGLYCERIN (IC) 100 MCG/ML INJ ONE (15:47)
[2018-08-26] MEDS ORDERED: SOD CHLORIDE 0.9% 1,000 ML IV SCH (16:31)
--- NOTE | 2018-08-26 16:39 | OPR ---
Date/Time of Note Date/Time of Note DATE: 08/26/18 TIME: 16:34 Operative Report Procedure Date: August 26, 2018 Preoperative Diagnosis Unstable angina Postoperative Diagnosis Same Operation/Procedure Performed [facility] jackeline Surgeon see signature line Costing Analyst Luis Anesthesia Type: moderate sedation Estimated Blood Loss: minimal Transfusion none Specimen NONE Grafts/Implants none Complications none Procedure Description Procedure performed: 1. Left heart catheterization, selective right and left coronary angiogram 2. right femoral angiogram and closure of the right femoral artery using a perclose device 3. moderate sedation for more than 30 minutes. 4. LV gram Inventory Management Specialist: Franky Sharif MD Indication:: 67-year-old female diabetes hypertension dyslipidemia strong family history of coronary artery disease who presented with unstable anginal symptom Findin. Left main coronary artery: Is short with about 30% diffuse disease. 2. Left anterior descending artery: Its a moderate to large size vessel and goes around the apex. It has 95 % stenosis ostially, after that is a good target with minimal luminal irregularity. There appears to be some left to right collaterals 3. Left circumflex artery: Is nondominant. It has 30 % stenosis proximally. Obtuse marginal 1 is a moderate size vessel with about 60% stenosis. There is 100% occlusion after the obtuse marginal 1 at the mid left circumflex artery with left to left collaterals. 4. Right coronary artery: Is a dominant vessel. It has 70% ostial 90% proximal and 90% mid stenosis. 5. LV pressure: 1 43/12; Aortic pressure by pull back is 150/60. EF ~50% Written informed consent with obtained after risks benefits and alternatives discussed with the patient in detail. risks including but not limited to risk of infection vascular complications, bleeding complications, [place] stroke arrhythmia renal failure at even were discussed with the patient in detail. Patient was brought into the cardiac clinical laboratory assistant and placed in supine position. Right and left groin area was prepped and draped in regular sterile fashion and then he was in anesthetized using 1% lidocaine. Right femoral artery was cannulated and using modified seldinger technique a 6 Danish sheath was placed in the right femoral artery. Right femoral angiogram was performed. JL4 catheter was advanced and engaged into the left main coronary artery and angiographic view was obtained. The JR4 catheter was advanced and engaged right coronary artery angiographic view was obtained. Pigtail was advanced to engage the left ventricle hemodynamics as recorded by pullback aortic pressure was measured Patient tolerated procedure well with no complication. Patient is to be transferred to recovery room in stable condition. 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 Discussed with CT surgeon FRANKY Martinez MD August 26, 2018 16:39
[2018-08-26] MEDS ORDERED: HOLD all METFORMIN and METFORMIN CONTAINING medications for 48 hours post procedure. Chec XX ONE (17:00)
[2018-08-26] MEDS: ATORVASTATIN 80 MG TAB PO SCH (21:45)
[2018-08-26] MEDS: ENOXAPARIN 80 MG/0.8 ML SYG SC SCH (22:04)
[2018-08-27] VITALS (11 sets, daily range): BP systolic 126–157; BP diastolic 57–77; PULSE 62–74; RESP 18–20
[2018-08-27] MEDS: PANTOPRAZOLE SODIUM 20 MG TABEC PO SCH ×2 (05:32→18:39)
[2018-08-27] MEDS: ASPIRIN 81 MG TAB PO SCH (09:12)
[2018-08-27] MEDS: RANOLAZINE (SR) 500 MG TAB PO SCH ×2 (09:13→21:37)
[2018-08-27] MEDS: METOPROLOL (XL) 25 MG TAB PO SCH (09:13)
[2018-08-27] MEDS: ACETYLCYSTEINE 600 MG CAP PO SCH ×2 (09:13→21:37)
[2018-08-27] MEDS: LISINOPRIL 10 MG TAB PO SCH (09:13)
[2018-08-27] MEDS: ENOXAPARIN 80 MG/0.8 ML SYG SC SCH (09:28)
--- NOTE | 2018-08-27 10:41 | PN ---
Date/Time of Note Date/Time of Note DATE: 08/27/18 TIME: 10:31 Assessment/Plan VTE Prophylaxis Risk score (from Ns)>0 risk: 6 SCD applied (from Nsg): Yes Pharmacological prophylaxis: LMWH Lines/Catheters IV C[facility]ter Type [facility]from [facility]): Peripheral IV Assessment/Plan Hospital Course 67-year-old female with a history of hypertension, type 2 diabetes, dyslipidemia, gastritis who presented to ER complaining of chest pain currently managed as follows: 1. Unstable angina/chest pain now with known multivessel coronary artery disease -No further chest pain -Status post Abnormal stress test August 25, 2018 and then subsequent angiogram August 26, 2018 that showed multivessel coronary artery disease including significant ostial LAD disease as well as right coronary artery disease. -Patient has been recommended for coronary artery bypass surgery, per patient cardiothoracic surgeon was just in and told her that her surgery will be sometime tomorrow. 2. Diabetes mellitus type 2: -Hemoglobin A1c was 5.9, but patient was on metformin therapy prior to admission. -Prediabetes? 3. Dyslipidemia with low HDL -Patient has been started on high-dose statin therapy for coronary artery disease 4. Hypertension: Patient is having good control on EARLENE inhibito and beta- regi r chronic gastritis: -Patient on twice daily PPI therapy 5. Chronic gastritis: -Patient on twice daily PPI 6. Patient on full dose anticoagulation for ACS 7. Patient is Hoah[employer]ism Disposition: -Continue supportive care and telemetry monitoring, plans for possible CABG tomorrow per family's report. Will verify with cardiothoracic surgery. Result Diagram: 08/27/18 0528 08/27/18 0528 Results 24hrs Laboratory Tests Test 08/27/18 05:28 White Blood Count 6.8 # Red Blood Count 4.54 Hemoglobin 12.6 Hematocrit 39.2 Mean Corpuscular Volume 86.3 Mean Corpuscular Hemoglobin 27.8 L Mean Corpuscular Hemoglobin Concent 32.1 Red Cell Distribution Width 13.2 Platelet Count 236 Mean Platelet Volume 11.5 H Immature Granulocytes % 0.100 Neutrophils % 47.5 Lymphocytes % 44.3 Monocytes % 5.4 Eosinophils % 2.3 Basophils % 0.4 Nucleated Red Blood Cells % 0.0 Immature Granulocytes # 0.010 Neutrophils # 3.2 Lymphocytes # 3.0 H Monocytes # 0.4 Eosinophils # 0.2 Basophils # 0.0 Nucleated Red Blood Cells # 0.0 Sodium Level 141 Potassium Level 4.0 Chloride Level 109 Carbon Dioxide Level 23 Anion Gap 9 Blood Urea Nitrogen 23 H Creatinine 0.91 Est Glomerular Filtrat Rate mL/min > 60 Glucose Level 106 Calcium Level 9.7 Total Bilirubin 0.2 Direct Bilirubin 0.00 Indirect Bilirubin 0.2 Aspartate Amino Transf (AST/SGOT) 10 L Alanine Aminotransferase (ALT/SGPT) 18 Alkaline Phosphatase 58 B-Type Natriuretic Peptide 310 H Total Protein 6.8 Albumin 3.8 Globulin 3.00 Albumin/Globulin Ratio 1.26 Triglycerides Level 109 Cholesterol Level 164 LDL Cholesterol, Calculated 111 HDL Cholesterol 31 L Cholesterol/HDL Ratio 5.2 Subjective 24 Hr Interval Summary Constitutional: no complaints Cardiovascular: No chest pain Exam/Review of Systems Exam Vitals Vital Signs Date Temp Pulse Resp B/P (MAP) Pulse Ox O2 O2 Flow FiO2 Time Delivery Rate 08/27/18 63 08:28 08/27/18 97.9 20 131/68 94 Room Air 07:25 (89) Intake and Output 08/26/18 08/26/18 08/27/18 1414:59 22:59 06:59 IntakeIntake Total 225 ml 400 ml BalanceBalance 225 ml 400 ml Exam Constitutional: alert, oriented Head: atraumatic, normocephalic Neck: non-tender, supple Respiratory: clear to auscultation Cardiovascular: regular rate and rhythm Gastrointestinal: S/ NT / ND / +BS Extremities: no edema, good radial pulses Results Results 24hrs Laboratory Tests Test 08/27/18 05:28 White Blood Count 6.8 # Red Blood Count 4.54 Hemoglobin 12.6 Hematocrit 39.2 Mean Corpuscular Volume 86.3 Mean Corpuscular Hemoglobin 27.8 L Mean Corpuscular Hemoglobin Concent 32.1 Red Cell Distribution Width 13.2 Platelet Count 236 Mean Platelet Volume 11.5 H Immature Granulocytes % 0.100 Neutrophils % 47.5 Lymphocytes % 44.3 Monocytes % 5.4 Eosinophils % 2.3 Basophils % 0.4 Nucleated Red Blood Cells % 0.0 Immature Granulocytes # 0.010 Neutrophils # 3.2 Lymphocytes # 3.0 H Monocytes # 0.4 Eosinophils # 0.2 Basophils # 0.0 Nucleated Red Blood Cells # 0.0 Sodium Level 141 Potassium Level 4.0 Chloride Level 109 Carbon Dioxide Level 23 Anion Gap 9 Blood Urea Nitrogen 23 H Creatinine 0.91 Est Glomerular Filtrat Rate mL/min > 60 Glucose Level 106 Calcium Level 9.7 Total Bilirubin 0.2 Direct Bilirubin 0.00 Indirect Bilirubin 0.2 Aspartate Amino Transf (AST/SGOT) 10 L Alanine Aminotransferase (ALT/SGPT) 18 Alkaline Phosphatase 58 B-Type Natriuretic Peptide 310 H Total Protein 6.8 Albumin 3.8 Globulin 3.00 Albumin/Globulin Ratio 1.26 Triglycerides Level 109 Cholesterol Level 164 LDL Cholesterol, Calculated 111 HDL Cholesterol 31 L Cholesterol/HDL Ratio 5.2 Imaging Imaging Procedure Description Procedure performed: 1. Left heart catheterization, selective right and left coronary angiogram 2. right femoral angiogram and closure of the right femoral artery using a perclose device 3. moderate sedation for more than 30 minutes. 4. LV gram Mud Analysis Well Logging Captain: Louis Sharif MD Medications Medication Current Medications IV Flush (NS 3 ml) 3 ml PER PROTOCOL IV ; Start 08/24/18 at 23:00 Ondansetron HCl (Zofran Inj) 4 mg Q6H PRN IV NAUSEA/VOMITING; Start 08/24/18 at 23:00 Aspirin (Aspirin) 81 mg DAILY PO Last administered on 08/27/18at 09:12; Admin Dose 81 MG; Start 08/25/18 at 09:00 Nitroglycerin (Nitroglycerin (Sl Tab) 0.4 Mg) 1 tab Q5M PRN SL .CHEST PAIN; Start 08/24/18 at 23:00 Acetaminophen (Tylenol Tab) 650 mg Q6H PRN PO .PAIN 1-3 OR TEMP Last administered on 08/27/18at 04:27; Admin Dose 650 MG; Start 08/24/18 at 23:00 Albuterol/ Ipratropium (Duoneb) 3 ml Q2H RESP THERAPY PRN HHN SHORTNESS OF BREATH; Start 08/24/18 at 23:00 Lisinopril (Zestril) 10 mg DAILY PO Last administered on 08/27/18at 09:13; Admin Dose 10 MG; Start 08/25/18 at 09:00 Pantoprazole Sodium (Protonix) 20 mg BID@0600,1800 PO Last administered on 08/27/18at 05:32; Admin Dose 20 MG; Start 08/25/18 at 06:00 Atorvastatin Calcium (Lipitor) 80 mg HS PO Last administered on 08/26/18at 21:45; Admin Dose 80 MG; Start 08/25/18 at 21:00 Acetylcysteine (Nac) 1,200 mg BID PO Last administered on 08/27/18 09:13; Admin Dose 1,200 MG; Start 08/25/18 at 12:00; Stop 08/28/18 at 11:59 Metoprolol Succinate (Toprol Xl) 25 mg DAILY PO Last administered on 08/27/18 09:13; Admin Dose 25 MG; Start 08/26/18 at 09:00 Ranolazine (Ranexa) 500 mg Q12 PO Last administered on 08/27/18 09:13; Admin Dose 500 MG; Start 08/25/18 at 21:00 Enoxaparin Sodium (Lovenox) 75 mg Q12 SC Last administered on 08/27/18 09:28; Admin Dose 75 MG; Start 08/26/18 at 22:00 JODI GONZALEZ August 27, 2018 10:41
--- NOTE | 2018-08-27 10:51 | CONS ---
Assessment/Plan Assessment/Plan Assessment/Plan (Daily) Coronary artery disease Hypertension Diabetes Dyslipidemia Plan to proceed with coronary artery bypass grafting Risk benefits complications alternative therapies high risk nature of the operation fully explained to the patient and the son risk and benefits are explained to the patient and the son included but not limited to bleeding infection stroke heart attack renal failure respiratory failure all questions answered Consultation Date/Type/Reason Admit Date/Time August 24, 2018 at 19:57 Date of Consultation: August 27, 2018 Type of Consult Coronary artery disease Reason for Consultation Possible coronary artery bypass grafting Date/Time of Note DATE: 08/27/18 TIME: 10:47 Hx of Present Illness This is a 68-year-old female with a history of hypertension hyperlipidemia borderline diabetes patient was admitted because of chest pain underwent a jackeline nary angiogram which was positive for three-vessel coronary artery disease involving LAD first obtuse marginal branch of the circumflex mid circumflex and right coronary artery ejection fraction is 50% patient has no chest pain at the present time troponins are negative ENT: no complaints Respiratory: no complaints Cardiovascular: no complaints Gastrointestinal: no complaints Genitourinary: no complaints Musculoskeletal: no complaints Skin: no complaints Neurologic: no complaints Endocrine: no complaints Lymphatic: no complaints Past Medical History Medical History: diabetes, high cholesterol, hypertension Home Meds Reported Medications Pantoprazole* (Pantoprazole*) 20 Mg Tablet.dr, 20 MG PO BID, TAB 08/24/18 Lisinopril* (Lisinopril*) 10 Mg Tablet, 10 MG PO DAILY, #30 TAB 08/24/18 Medications Current Medications IV Flush (NS 3 ml) 3 ml PER PROTOCOL IV ; Start 08/24/18 at 23:00 Ondansetron HCl (Zofran Inj) 4 mg Q6H PRN IV NAUSEA/VOMITING; Start 08/24/18 at 23:00 Aspirin (Aspirin) 81 mg DAILY PO Last administered on 08/27/18at 09:12; Admin Dose 81 MG; Start 08/25/18 at 09:00 Nitroglycerin (Nitroglycerin (Sl Tab) 0.4 Mg) 1 tab Q5M PRN SL .CHEST PAIN; Start 08/24/18 at 23:00 Acetaminophen (Tylenol Tab) 650 mg Q6H PRN PO .PAIN 1-3 OR TEMP Last administered on 08/27/18at 04:27; Admin Dose 650 MG; Start 08/24/18 at 23:00 Albuterol/ Ipratropium (Duoneb) 3 ml Q2H RESP THERAPY PRN HHN SHORTNESS OF BREATH; Start 08/24/18 at 23:00 Lisinopril (Zestril) 10 mg DAILY PO Last administered on 08/27/18 09:13; Admin Dose 10 MG; Start 08/25/18 at 09:00 Pantoprazole Sodium (Protonix) 20 mg BID@0600,1800 PO Last administered on 08/27/18at 05:32; Admin Dose 20 MG; Start 08/25/18 at 06:00 Atorvastatin Calcium (Lipitor) 80 mg HS PO Last administered on 08/26/18 21:45; Admin Dose 80 MG; Start 08/25/18 at 21:00 Acetylcysteine (Nac) 1,200 mg BID PO Last administered on 08/27/18 09:13; Admin Dose 1,200 MG; Start 08/25/18 at 12:00; Stop 08/28/18 at 11:59 Metoprolol Succinate (Toprol Xl) 25 mg DAILY PO Last administered on 08/27/18 09:13; Admin Dose 25 MG; Start 08/26/18 at 09:00 Ranolazine (Ranexa) 500 mg Q12 PO Last administered on 08/27/18 09:13; Admin Dose 500 MG; Start 08/25/18 at 21:00 Enoxaparin Sodium (Lovenox) 75 mg Q12 SC Last administered on 08/27/18 09:28; Admin Dose 75 MG; Start 08/26/18 at 22:00 Allergies: Coded Allergies: No Known Allergy (Unverified , 08/24/18) Past Surgical History Past Surgical Hx: other (See HPI) Social History Alcohol Use: none Smoking Status: Never smoker Drug Use: none Exam/Review of Systems Exam Vitals Vital Signs Date Temp Pulse Resp B/P (MAP) Pulse Ox O2 O2 Flow FiO2 Time Delivery Rate 08/27/18 63 08:28 08/27/18 97.9 20 131/68 94 Room Air 07:25 (89) Intake and Output 08/26/18 08/26/18 08/27/18 1515:00 23:00 07:00 IntakeIntake Total 225 ml 400 ml BalanceBalance 225 ml 400 ml Eyes: nl conjunctiva, EOMI, nl lids, nl sclera, PERRL ENMT: nl external ears & nose, nl lips & teeth, nl nasal mucosa & septum Neck: supple, non-tender Respiratory: clear to auscultation, normal air movement Cardiovascular: regular rate and rhythm, nl pulses Gastrointestinal: soft, nl liver, spleen, non-tender Musculoskeletal: nl extremities to inspection, nl gait and stance Extremities: normal pulses Results Result Diagram: 08/27/1852708/27/18527 Results 24hrs Laboratory Tests Test 08/27/18 05:28 White Blood Count 6.8 # Red Blood Count 4.54 Hemoglobin 12.6 Hematocrit 39.2 Mean Corpuscular Volume 86.3 Mean Corpuscular Hemoglobin 27.8 L Mean Corpuscular Hemoglobin Concent 32.1 Red Cell Distribution Width 13.2 Platelet Count 236 Mean Platelet Volume 11.5 H Immature Granulocytes % 0.100 Neutrophils % 47.5 Lymphocytes % 44.3 Monocytes % 5.4 Eosinophils % 2.3 Basophils % 0.4 Nucleated Red Blood Cells % 0.0 Immature Granulocytes # 0.010 Neutrophils # 3.2 Lymphocytes # 3.0 H Monocytes # 0.4 Eosinophils # 0.2 Basophils # 0.0 Nucleated Red Blood Cells # 0.0 Sodium Level 141 Potassium Level 4.0 Chloride Level 109 Carbon Dioxide Level 23 Anion Gap 9 Blood Urea Nitrogen 23 H Creatinine 0.91 Est Glomerular Filtrat Rate mL/min > 60 Glucose Level 106 Calcium Level 9.7 Total Bilirubin 0.2 Direct Bilirubin 0.00 Indirect Bilirubin 0.2 Aspartate Amino Transf (AST/SGOT) 10 L Alanine Aminotransferase (ALT/SGPT) 18 Alkaline Phosphatase 58 B-Type Natriuretic Peptide 310 H Total Protein 6.8 Albumin 3.8 Globulin 3.00 Albumin/Globulin Ratio 1.26 Triglycerides Level 109 Cholesterol Level 164 LDL Cholesterol, Calculated 111 HDL Cholesterol 31 L Cholesterol/HDL Ratio 5.2 Medications Medication Current Medications IV Flush (NS 3 ml) 3 ml PER PROTOCOL IV ; Start 08/24/18 at 23:00 Ondansetron HCl (Zofran Inj) 4 mg Q6H PRN IV NAUSEA/VOMITING; Start 08/24/18 at 23:00 Aspirin (Aspirin) 81 mg DAILY PO Last administered on 08/27/18at 09:12; Admin Dose 81 MG; Start 08/25/18 at 09:00 Nitroglycerin (Nitroglycerin (Sl Tab) 0.4 Mg) 1 tab Q5M PRN SL .CHEST PAIN; Start 08/24/18 at 23:00 Acetaminophen (Tylenol Tab) 650 mg Q6H PRN PO .PAIN 1-3 OR TEMP Last administered on 08/27/18 04:27; Admin Dose 650 MG; Start 08/24/18 at 23:00 Albuterol/ Ipratropium (Duoneb) 3 ml Q2H RESP THERAPY PRN HHN SHORTNESS OF BREATH; Start 08/24/18 at 23:00 Lisinopril (Zestril) 10 mg DAILY PO Last administered on 08/27/18 09:13; Admin Dose 10 MG; Start 08/25/18 at 09:00 Pantoprazole Sodium (Protonix) 20 mg BID@0600,1800 PO Last administered on 08/27/18 05:32; Admin Dose 20 MG; Start 08/25/18 at 06:00 Atorvastatin Calcium (Lipitor) 80 mg HS PO Last administered on 08/26/18 21:45; Admin Dose 80 MG; Start 08/25/18 at 21:00 Acetylcysteine (Nac) 1,200 mg BID PO Last administered on 08/27/18 09:13; Admin Dose 1,200 MG; Start 08/25/18 at 12:00; Stop 08/28/18 at 11:59 Metoprolol Succinate (Toprol Xl) 25 mg DAILY PO Last administered on 08/27/18 09:13; Admin Dose 25 MG; Start 08/26/18 at 09:00 Ranolazine (Ranexa) 500 mg Q12 PO Last administered on 08/27/18 09:13; Admin Dose 500 MG; Start 08/25/18 at 21:00 Enoxaparin Sodium (Lovenox) 75 mg Q12 SC Last administered on 08/27/18 09:28; Admin Dose 75 MG; Start 08/26/18 at 22:00 AKIN COLEMAN MD August 27, 2018 10:51
--- NOTE | 2018-08-27 18:34 | CONS ---
Consult Date/Type/Reason Admit Date/Time August 27, 2018 at 09:46 Initial Consult Date 08/25/18 Type of Consultation: cv Requesting Provider: JORGE A ALLEN MD Date/Time of Note DATE: 08/27/18 TIME: 18:32 Subjective Interventional cardiology follow-up progress note Subjective: Discussed with the staff and multiple family members. Discussed with multiple physicians. Patient with no chest pain or pressure no palpitation now Objective: General: no acute distress HEENT: NC/AT. pupils are equal. round. NECK: NO JVD. no stridor. CV: RRR. systolic murmur; no gallop or rubs. PULM: no wheezing or rhonchi. GI: SOFT, NT, ND, no rebound or guarding Extremity: trace B/L LE edema. no clubbing. neuro: awake and alert, OX3. Psych: calm and pleasant rectal: deferred Vascular: Right femoral no bleeding or hematoma. No bruit Echocardiogram was personally reviewed which shows: Normal left ventricular systolic function. Normal left ventricular cavity size. Ejection fraction is visually estimated at 60 %. Tissue Doppler/Mitral Doppler indices are consistent with impaired relaxation (Stage I diastolic dysfunction). E/E'= 9. Normal appearance and function of the mitral valve with trace physiologic regurgitation. No significant aortic stenosis or insufficiency. Aortic cusps appear mildly calcified. Trileaflet aortic valve. Normal appearance and function of the tricuspid valve with trace physiologic regurgitation. Estimated peak PA systolic pressure 27 mmHg. g. Objective Vitals Vital Signs Date Temp Pulse Resp B/P (MAP) Pulse Ox O2 O2 Flow FiO2 Time Delivery Rate 08/27/18 63 16:40 08/27/18 98.3 20 156/77 94 Room Air 15:21 (103) Intake and Output 08/26/18 08/26/18 08/27/18 1515:00 23:00 07:00 IntakeIntake Total 225 ml 400 ml BalanceBalance 225 ml 400 ml Results/Medications Result Diagram: 08/27/18 0528 08/27/18 0528 Results 24 hrs Laboratory Tests Test 08/27/18 05:28 White Blood Count 6.8 # Red Blood Count 4.54 Hemoglobin 12.6 Hematocrit 39.2 Mean Corpuscular Volume 86.3 Mean Corpuscular Hemoglobin 27.8 L Mean Corpuscular Hemoglobin Concent 32.1 Red Cell Distribution Width 13.2 Platelet Count 236 Mean Platelet Volume 11.5 H Immature Granulocytes % 0.100 Neutrophils % 47.5 Lymphocytes % 44.3 Monocytes % 5.4 Eosinophils % 2.3 Basophils % 0.4 Nucleated Red Blood Cells % 0.0 Immature Granulocytes # 0.010 Neutrophils # 3.2 Lymphocytes # 3.0 H Monocytes # 0.4 Eosinophils # 0.2 Basophils # 0.0 Nucleated Red Blood Cells # 0.0 Sodium Level 141 Potassium Level 4.0 Chloride Level 109 Carbon Dioxide Level 23 Anion Gap 9 Blood Urea Nitrogen 23 H Creatinine 0.91 Est Glomerular Filtrat Rate mL/min > 60 Glucose Level 106 Calcium Level 9.7 Total Bilirubin 0.2 Direct Bilirubin 0.00 Indirect Bilirubin 0.2 Aspartate Amino Transf (AST/SGOT) 10 L Alanine Aminotransferase (ALT/SGPT) 18 Alkaline Phosphatase 58 B-Type Natriuretic Peptide 310 H Total Protein 6.8 Albumin 3.8 Globulin 3.00 Albumin/Globulin Ratio 1.26 Triglycerides Level 109 Cholesterol Level 164 LDL Cholesterol, Calculated 111 HDL Cholesterol 31 L Cholesterol/HDL Ratio 5.2 Home Meds Reported Medications Pantoprazole* (Pantoprazole*) 20 Mg Tablet.dr, 20 MG PO BID, TAB 08/24/18 Lisinopril* (Lisinopril*) 10 Mg Tablet, 10 MG PO DAILY, #30 TAB 08/24/18 Medications Current Medications IV Flush (NS 3 ml) 3 ml PER PROTOCOL IV ; Start 08/24/18 at 23:00 Ondansetron HCl (Zofran Inj) 4 mg Q6H PRN IV NAUSEA/VOMITING; Start 08/24/18 at 23:00 Aspirin (Aspirin) 81 mg DAILY PO Last administered on 08/27/18at 09:12; Admin Dose 81 MG; Start 08/25/18 at 09:00 Nitroglycerin (Nitroglycerin (Sl Tab) 0.4 Mg) 1 tab Q5M PRN SL .CHEST PAIN; Start 08/24/18 at 23:00 Acetaminophen (Tylenol Tab) 650 mg Q6H PRN PO .PAIN 1-3 OR TEMP Last administered on 08/27/18at 04:27; Admin Dose 650 MG; Start 08/24/18 at 23:00 Albuterol/ Ipratropium (Duoneb) 3 ml Q2H RESP THERAPY PRN HHN SHORTNESS OF BREATH; Start 08/24/18 at 23:00 Lisinopril (Zestril) 10 mg DAILY PO Last administered on 08/27/18at 09:13; Admin Dose 10 MG; Start 08/25/18 at 09:00 Pantoprazole Sodium (Protonix) 20 mg BID@0600,1800 PO Last administered on 08/27/18at 05:32; Admin Dose 20 MG; Start 08/25/18 at 06:00 Atorvastatin Calcium (Lipitor) 80 mg HS PO Last administered on 08/26/18at 21:45; Admin Dose 80 MG; Start 08/25/18 at 21:00 Acetylcysteine (Nac) 1,200 mg BID PO Last administered on 08/27/18 09:13; Admin Dose 1,200 MG; Start 08/25/18 at 12:00; Stop 08/28/18 at 11:59 Metoprolol Succinate (Toprol Xl) 25 mg DAILY PO Last administered on 08/27/18 09:13; Admin Dose 25 MG; Start 08/26/18 at 09:00 Ranolazine (Ranexa) 500 mg Q12 PO Last administered on 08/27/18 09:13; Admin Dose 500 MG; Start 08/25/18 at 21:00 Enoxaparin Sodium (Lovenox) 75 mg Q12 SC Last administered on 08/27/18at 09:28; Admin Dose 75 MG; Start 08/26/18 at 22:00 Epinephrine 4 mg/ Dextrose 250 ml @ 0 mls/hr INTRA-OP IV ; Start 08/28/18 at 07:00; Stop 08/28/18 at 19:00 Phenylephrine HCl 250 ml @ 0 mls/hr INTRA-OP IV ; Start 08/28/18 at 07:00; Stop 08/28/18 at 19:00 Insulin Human Regular 100 unit/ Sodium Chloride 100 ml @ 0 mls/hr INTRA-OP IV ; Start 08/28/18 at 07:00; Stop 08/28/18 at 19:00 Assessment/Plan Hospital Course (Demo Recall) 1. Chest pain consistent with unstable angina/acute coronary syndrome with abnormal stress is a submaximal level and coronary angiography showing multivessel coronary artery disease 2. Hypertension 3. Diabetes 4. Dyslipidemia 5. Abnormal EKG 6. Family history of coronary artery disease 7. Druze Recommendations: Continue with current cardiac care. I have stopped Lovenox now. Plan for coronary artery bypass graft tomorrow CT surgery input is appreciated Thank you for his referral. We will continue following with you FRANKY HUDSON MD [facility] FRANKY HUDSON MD August 27, 2018 18:34
[2018-08-27] MEDS: ATORVASTATIN 80 MG TAB PO SCH (21:37)
[2018-08-28] VITALS (43 sets, daily range): BP systolic 87–147; BP diastolic 47–76; PULSE 62–118; RESP 10–31; TEMP 98–100.3
[2018-08-28] MEDS: PANTOPRAZOLE SODIUM 20 MG TABEC PO SCH ×2 (05:51→18:00)
[2018-08-28] MEDS ORDERED: HEPARIN 1000 UNITS/ML 10 ML INJ ONE ×3 (06:55→09:40)
[2018-08-28] MEDS ORDERED: PAPAVERINE 60 MG INJ ONE (06:55)
[2018-08-28] MEDS ORDERED: VANCOMYCIN 1 GM INJ ONE ×2 (06:55→09:48)
[2018-08-28] MEDS ORDERED: GELATIN SIZE 100 SPONGE ONE (06:55)
[2018-08-28] MEDS ORDERED: THROMBIN 20,000 UNIT VIAL ONE ×2 (06:55→13:05)
[2018-08-28] MEDS ORDERED: PHENYLephrine 20MG IN 250 ML 250 ML IV SCH (07:00)
[2018-08-28] MEDS ORDERED: EPINEPHrine 4 MG in DEXTROSE 5% 246 ML IV SCH (07:00)
[2018-08-28] MEDS ORDERED: INSULIN HUMAN REGULAR 100 UNIT in SOD CHLORIDE 0.9% 99 ML IV SCH (07:00)
--- NOTE | 2018-08-28 07:05 | PREAC ---
Date/Time of Note Date/Time of Note DATE: 08/28/18 TIME: 07:02 Anesthesia Eval and Record Evaluation Time Pre-Procedure Interview DATE: 08/28/18 TIME: 07:02 Age 67 Sex female NPO: 8 hrs Preoperative diagnosis CAD, S/P AK Planned procedure CABG Past Medical History Past Medical History: Includes Cardio: HTN, Dyslipidemia, AK, CAD, PTCA/Stent GI: GERD Surgery & Anesthesia Issues No known issue Meds Anticoagulation: Yes Beta Mily within 24 hr: Yes Reason Beta Mily not given: Pt. not on B-Mily Reported Medications Pantoprazole* (Pantoprazole*) 20 Mg Tablet.dr, 20 MG PO BID, TAB 08/24/18 Lisinopril* (Lisinopril*) 10 Mg Tablet, 10 MG PO DAILY, #30 TAB 08/24/18 Current Medications IV Flush (NS 3 ml) 3 ml PER PROTOCOL IV ; Start 08/24/18 at 23:00 Ondansetron HCl (Zofran Inj) 4 mg Q6H PRN IV NAUSEA/VOMITING; Start 08/24/18 at 23:00 Aspirin (Aspirin) 81 mg DAILY PO Last administered on 08/27/18at 09:12; Admin Dose 81 MG; Start 08/25/18 at 09:00 Nitroglycerin (Nitroglycerin (Sl Tab) 0.4 Mg) 1 tab Q5M PRN SL .CHEST PAIN; Start 08/24/18 at 23:00 Acetaminophen (Tylenol Tab) 650 mg Q6H PRN PO .PAIN 1-3 OR TEMP Last administered on 08/27/18at 04:27; Admin Dose 650 MG; Start 08/24/18 at 23:00 Albuterol/ Ipratropium (Duoneb) 3 ml Q2H RESP THERAPY PRN HHN SHORTNESS OF BREATH; Start 08/24/18 at 23:00 Lisinopril (Zestril) 10 mg DAILY PO Last administered on 08/27/18at 09:13; Admin Dose 10 MG; Start 08/25/18 at 09:00 Pantoprazole Sodium (Protonix) 20 mg BID@0600,1800 PO Last administered on 08/27/18at 18:39; Admin Dose 20 MG; Start 08/25/18 at 06:00 Atorvastatin Calcium (Lipitor) 80 mg HS PO Last administered on 08/27/18at 21:37; Admin Dose 80 MG; Start 08/25/18 at 21:00 Acetylcysteine (Nac) 1,200 mg BID PO Last administered on 08/27/18at 21:37; Admi n Dose 1,200 MG; Start 08/25/18 at 12:00; Stop 08/28/18 at 11:59 Metoprolol Succinate (Toprol Xl) 25 mg DAILY PO Last administered on 08/27/18at 09:13; Admin Dose 25 MG; Start 08/26/18 at 09:00 Ranolazine (Ranexa) 500 mg Q12 PO Last administered on 08/27/18at 21:37; Admin Dose 500 MG; Start 08/25/18 at 21:00 Epinephrine 4 mg/ Dextrose 250 ml @ 0 mls/hr INTRA-OP IV ; Start 08/28/18 at 07:00; Stop 08/28/18 at 19:00 Phenylephrine HCl 250 ml @ 0 mls/hr INTRA-OP IV ; Start 08/28/18 at 07:00; Stop 08/28/18 at 19:00 Insulin Human Regular 100 unit/ Sodium Chloride 100 ml @ 0 mls/hr INTRA-OP IV ; Start 08/28/18 at 07:00; Stop 08/28/18 at 19:00 Meds reviewed: Yes Allergies Coded Allergies: tramadol (Verified Allergy, Intermediate, itching, 08/28/18) Allergies Reviewed: Yes Labs/Studies Labs Reviewed: Reviewed by anesthesiologist Result Diagram: 08/28/18 0458 08/28/18 0458 Laboratory Tests 08/28/18 04:58 Blood Bank Test 08/27/18 18:04 Antibody Screen NEGATIVE Blood Product Summary Counts Blood Type O POSITIVE Crossmatch Red Blood Cells test: N/A Studies: ECG Pre-procedure Exam Last vitals Vital Signs Date Temp Pulse Resp B/P (MAP) Pulse Ox O2 O2 Flow FiO2 Time Delivery Rate 08/28/18 97.7 66 18 147/70 96 04:16 (95) 08/27/18 Room Air 15:21 Airway: Adequate mouth opening, Adequate thyromental dist Mallampati: Mallampati II Teeth: Normal Lung: Normal Heart: Normal ASA Physical Status ASA physical status: 4 Emergency: None Planned Anesthetic General/MAC: ETT, A Line, CVP, PCWP, LUIS Planned Pain Management Parenteral pain med Pre-operative Attestations Prior to commencing anesthesia and surgery, the patient was re-evaluated, there was verification of: *The patient's identity *The results of appropriate recent lab work and preoperative vital signs *The above evaluation not changing prior to induction *Anesthetic plan, risk benefits, alternative and complications discussed with patient/family; questions answered; patient/family understands, accepts and wi shes to proceed. FLORECITA GUADARRAMA MD August 28, 2018 07:05
[2018-08-28] MEDS ORDERED: DOPamine-D5W 1.6 MG/ML 250 ML ONE (07:12)
[2018-08-28] MEDS ORDERED: NITROGLYCERIN 50 MG/D5W 250 ML BTL ONE (07:12)
[2018-08-28] MEDS ORDERED: TRANEXAMIC ACID 1,000 MG/10 ML VIAL ONE (07:12)
[2018-08-28] MEDS ORDERED: MIDAZOLAM 5 ML ONE ×2 (07:13→10:05)
[2018-08-28] MEDS ORDERED: CEFAZOLIN 1 GM INJ ONE ×3 (08:26→11:39)
[2018-08-28] MEDS ORDERED: PHENYLephrine 10 MG INJ ONE (08:31)
[2018-08-28] MEDS ORDERED: AMINOCAPROIC ACID 5 GM INJ ONE (08:31)
[2018-08-28] MEDS ORDERED: ALBUMIN HUMAN 25% 200 ML ONE (08:31)
[2018-08-28] MEDS ORDERED: MANNITOL 20% 500 ML ONE (08:31)
[2018-08-28] MEDS ORDERED: FUROSEMIDE 20 MG INJ ONE ×2 (08:31→13:13)
[2018-08-28] MEDS ORDERED: MAGNESIUM SULFATE (MG) 50% 10 ML INJ ONE (08:31)
[2018-08-28] MEDS ORDERED: LIDOCAINE 2% (SDV) 5 ML INJ ONE ×2 (08:31→13:22)
[2018-08-28] MEDS ORDERED: NA BICARBONATE 8.4% 50 ML SYG ONE ×2 (08:31→10:48)
[2018-08-28] MEDS ORDERED: POTASSIUM CHLORIDE 40 MEQ INJ ONE (08:31)
[2018-08-28] MEDS ORDERED: CA CHLORIDE 10% 10 ML SYRINGE ONE (08:31)
[2018-08-28] MEDS ORDERED: NORepinephrine 4 MG INJ ONE (08:32)
[2018-08-28] MEDS: RANOLAZINE (SR) 500 MG TAB PO SCH ×2 (09:00→21:00)
[2018-08-28] MEDS: METOPROLOL (XL) 25 MG TAB PO SCH (09:00)
[2018-08-28] MEDS: LISINOPRIL 10 MG TAB PO SCH (09:00)
[2018-08-28] MEDS: ACETYLCYSTEINE 600 MG CAP PO SCH (09:00)
[2018-08-28] MEDS ORDERED: PROTAMINE 250 MG INJ ONE (12:46)
[2018-08-28] MEDS ORDERED: SURGIFOAM POWDER 1 GM KIT ONE (13:05)
[2018-08-28] MEDS ORDERED: ETOMIDATE 20 MG INJ ONE (13:22)
[2018-08-28] MEDS ORDERED: ROCURONIUM 50 MG INJ ONE (13:22)
--- NOTE | 2018-08-28 14:49 | OPR ---
Date/Time of Note Date/Time of Note DATE: 08/28/18 TIME: 14:42 Operative Report Procedure Date: August 28, 2018 Preoperative Diagnosis Coronary artery disease Acute coronary syndrome Postoperative Diagnosis Same Operation/Procedure Performed CABG X 4 Endoscopic saphenous vein harvesting from the left lower extremity LOPEZ to LAD Saphenous vein graft to the first and second obtuse marginal branch of circumflex and a sequential fashion Saphenous vein graft to the PDA Surgeon see signature line Real Estate Sales Agent Ricardo Partida MD Second Real Estate Sales Agent: LIZ OLIVER Anesthesia Type: general Estimated Blood Loss: other Transfusion none Specimen None Grafts/Implants none Tubes/Drains Chest tubes Complications none Pt Condition Post Procedure: critical Disposition: other Indications Response comp occasions alternative therapies high risk nature of the operation fully spent with patient and the family consent obtained Risks and benefits are explained to the patient included but not limited to bleeding infection stroke heart attack need for further surgeries possibility of blood transfusions including packed cells platelets plasma was fully explained to the patient and the patient was agreeable to receiving transfusion if necessary The family was also agreed to blood transfusions if they were necessary and they were aware of the high risk nature of the operation Procedure Description Patient was placed supine position prepped and draped in usual sterile fashion timeout was called antibiotics was given Sternotomy incision was made from the sternal notch down to the xiphoid process Saphenous vein was harvested from the left lower extremity using endoscopic technique Left internal mammary artery was harvested using titanium clip and electrocautery after opening the sternum in the mid aspect of the sternum Cardio open pericardial cradle was made Cannulation sutures all 3-0 Prolene with pledgets were applied to the distal ascending aorta mid ascending aorta body of the right atrium right atrial appendage Patient was given heparin after adequate documentation of a CT the aorta was cannulated followed by two-stage venous cannula antegrade and retrograde cardioplegia cannula The heart was placed on cardiac pulmonary bypass After stabilization on bypass cross-clamp applied to the soft part of the aorta the heart was arrested using antegrade and retrograde cardioplegia given in the blood base cold potassium base cardioplegia given every 15 to 20 minutes antegrade and retrograde and supplemented through the vein graft as a very being constructed until the cross-clamp came off The for distal anastomosis were done saphenous vein in a sequential manner was used for the first and second obtuse marginal branch of the circumflex Toughness vein graft was also used to bypass the PDA LAD was anastomosed by left internal mammary artery All distal anastomoses were done to 8 mm longitudinal arteriotomy 1-0 Prolene continuous suture technique Proximal to anastomosis were done on the same cross-clamp 4.5 mm punch 6-0 Prolene continuous suture technique end-to-side matter Cross-clamp removed heart and the graft de-aired The heart came off cardiopulmonary bypass with minimal tropic support all myocardial lopez were functioning well soraya ejection fraction about 50 to 60% no valvular abnormalities Codamine given cannulas removed sutures tied To mediastinal tubes 2 pleural tubes were placed brought out through the lower stab was secured to skin using 2-0 silk sutures To ventricular pacing wires were placed brought out to a lower stab was secured to skin using 2-0 silk sutures No evidence of any bleeding was noted The sternum was closed using the cable system [id number] Diab on the deep tissues were irrigated using antibiotic solution and closed in 2 layers of #1 Vicryl suture for the linea alba and the deep 2-0 Vicryl suture for subcu and the skin was closed using a 4-0 Monocryl suture in a running subcuticular skin closure And tolerated procedure well AKIN COLEMAN MD August 28, 2018 14:48
--- NOTE | 2018-08-28 14:52 | PAC ---
Date/Time of Note Date/Time of Note DATE: 08/28/18 TIME: 14:52 Post-Anesthesia Notes Post-Anesthesia Note Last documented vital signs Vital Signs Date Temp Pulse Resp B/P (MAP) Pulse Ox O2 O2 Flow FiO2 Time Delivery Rate 08/28/18 103 14:46 08/28/18 97.7 18 147/70 96 04:16 (95) 08/27/18 Room Air 15:21 Activity: WNL Respiratory function: WNL Cardiovascular function: WNL Mental status: Baseline Pain reasonably controlled: Yes Hydration appropriate: Yes Nausea/Vomiting absent: Yes Comments BP:124/67, P:98, Spo2:100%, T:99,8 FLORECITA GUADARRAMA MD August 28, 2018 14:52
[2018-08-28] MEDS ORDERED: hydrALAzine 20 MG INJ IV PRN (15:00)
[2018-08-28] MEDS ORDERED: morphine 2 MG INJ IV PRN (15:00)
[2018-08-28] MEDS ORDERED: MIDAZOLAM 1 MG/ML 2 ML INJ IV PRN (15:00)
[2018-08-28] MEDS ORDERED: LORAZEPAM 2 MG INJ IV PRN (15:00)
[2018-08-28] MEDS ORDERED: DOPamine-D5W 1.6 MG/ML 250 ML IV SCH (15:00)
[2018-08-28] MEDS ORDERED: ONDANSETRON 4 MG INJ IV PRN ×2 (15:00→16:30)
[2018-08-28] MEDS ORDERED: DIPHENHYDRAMINE 50 MG INJ IV PRN (15:00)
[2018-08-28] MEDS ORDERED: EPHEDrine 25 MG/5 ML SYG IV PRN (15:00)
[2018-08-28] MEDS ORDERED: ALBUMIN HUMAN 5% 250 ML IV PRN (15:00)
[2018-08-28] MEDS ORDERED: FENTAnyl 50 MCG/ML VIAL IV PRN ×2 (15:00)
[2018-08-28] MEDS ORDERED: NITROGLYCERIN 50 MG/D5W (PMX) 250 ML IV SCH (15:00)
[2018-08-28] MEDS ORDERED: MEPERIDINE 25 MG INJ IV PRN (15:00)
[2018-08-28] MEDS ORDERED: HYDROmorphONE 0.5 MG/0.5 ML SYG IV PRN ×2 (16:30)
[2018-08-28] MEDS ORDERED: MAGNESIUM SULFATE 1 GM/D5W 100 ML IVPB PRN (16:30)
[2018-08-28] MEDS ORDERED: ACETAMINOPHEN 650 MG SUPP PR PRN (16:30)
[2018-08-28] MEDS ORDERED: ACETAMINOPHEN 325 MG TAB PO PRN (16:30)
[2018-08-28] MEDS: HYDROmorphONE 0.5 MG/0.5 ML SYG IV PRN ×3 (16:48→21:19)
[2018-08-28] MEDS: POTASSIUM CHLORIDE 50 ML IVPB PRN ×3 (16:52→18:45)
[2018-08-28] MEDS: INSULIN ASPART [NOVOLOG] 3 ML PEN SC SCH ×2 (17:00→21:54)
[2018-08-28] MEDS: CEFAZOLIN 1 GM/50 ML (PMX) 50 ML IVPB SCH (17:17)
[2018-08-28] MEDS: ALBUMIN HUMAN 5% 250 ML IV SCH ×2 (17:19→17:42)
[2018-08-28] MEDS: morphine 2 MG INJ IV PRN ×2 (17:50→18:56)
[2018-08-28] MEDS: LIDOCAINE 5% PATCH TD SCH (18:25)
[2018-08-28] MEDS: POTASSIUM CHLORIDE 40 MEQ, CALCIUM CHLORIDE 10% 1 GM in DEXTROSE 5%-0.225% NACL 1,000 ML IV SCH (18:42)
--- NOTE | 2018-08-28 20:20 | RADRPT ---
Vent Rate: 106 bpm RR Interval: 564 msec KS Interval: 134 msec QRS Duration: 85 msec QT Interval: 344 msec QTC Interval: 458 msec P-R-T [place]: 52 - 6 - 251 degrees Sinus tachycardia...rate> 99 Nonspecific repol abnormality, diffuse leads...ST dep, T flat/neg, ant/lat/inf Electronically Signed By: Alvin Mcneill
[2018-08-28] MEDS: ATORVASTATIN 80 MG TAB PO SCH (21:00)
[2018-08-28] MEDS: FAMOTIDINE 20 MG INJ IV SCH (21:18)
[2018-08-29] VITALS (43 sets, daily range): BP systolic 91–140; BP diastolic 55–77; PULSE 83–109; RESP 10–30; TEMP 98.9–100.6
[2018-08-29] MEDS: HYDROmorphONE 0.5 MG/0.5 ML SYG IV PRN (00:11)
[2018-08-29] MEDS: CEFAZOLIN 1 GM/50 ML (PMX) 50 ML IVPB SCH ×2 (00:56→09:34)
[2018-08-29] MEDS ORDERED: INSULIN HUMAN REGULAR 100 UNIT in SOD CHLORIDE 0.9% 99 ML IV SCH (01:00)
[2018-08-29] MEDS ORDERED: DEXTROSE 50% 50 ML SYRINGE IV PRN ×4 (01:00→15:30)
[2018-08-29] MEDS: INSULIN ASPART [NOVOLOG] 3 ML PEN SC SCH ×6 (01:00→20:47)
[2018-08-29] MEDS: ACCU-CHEK XX SCH ×14 (01:05→14:09)
[2018-08-29] MEDS: ONDANSETRON 4 MG INJ IV PRN ×2 (01:53→08:21)
[2018-08-29] MEDS: OXYCODONE/ACETAMINOPHEN (5/325) TAB PO PRN ×6 (03:31→22:56)
[2018-08-29] MEDS: PANTOPRAZOLE SODIUM 20 MG TABEC PO SCH ×2 (06:12→17:51)
[2018-08-29] MEDS ORDERED: ALBUMIN HUMAN 5% 250 ML IV PRN (06:30)
--- NOTE | 2018-08-29 06:31 | PN ---
Date/Time of Note Date/Time of Note DATE: 08/29/18 TIME: 06:31 Assessment/Plan VTE [place] [facility] [place]: 14 SCD applied (from Ns): Yes Pharmacological prophylaxis: NA/contraindicated Pharm contraindication: surgical contra Lines/Catheters IV Catheter Type (from [facility]): Central Line Central line still needed: Yes Urinary Cath still in place: Yes Reason Cath still needed: other (indicate) Assessment/Plan Hospital Course 67-year-old female with a history of hypertension, type 2 diabetes, dyslipidem ia, gastritis who presented to ER complaining of chest pain currently managed as follows: 1. Unstable angina/chest pain now with known multivessel coronary artery disease -No further chest pain -Status post Abnormal stress test August 25, 2018 and then subsequent angiogram August 26, 2018 that showed multivessel coronary artery disease including significant ostial LAD disease as well as right coronary artery disease. -Coronary artery bypass surgery 08/28/18 with chest drains 2. Diabetes mellitus type 2: -Hemoglobin A1c was 5.9, but patient was on metformin therapy prior to admission. -d/c insuin gtt -Prediabetes? 3. Dyslipidemia with low HDL -Patient has been started on high-dose statin therapy for coronary artery disease 4. Hypertension: Patient is having good control on EARLENE inhibitor and beta- regi -Patient on twice daily PPI therapy 5. Chronic gastritis: -Patient on twice daily PPI 6. Patient on full dose anticoagulation for ACS 7. Patient is [employer] but consented to receiving blood prior to surgery 8. CLEMENC[place] Disposition: -cr bump and hypernatremia noted, patient on low dose D5 1/4 NS, repeat levels in a few hours, intervene as indicated -continue ICU until cleared by CTS CRITICAL CARE TIME: >35 mins of which more than half was spent at the bedside and during counselling Result Diagram: 08/29/18 0435 08/29/18 0435 Results 24hrs Laboratory Tests Test 08/28/18 14:40 08/28/18 15:00 08/28/18 15:39 08/28/18 16:12 Bedside Glucose 124 133 White Blood 11.1 #H Count Red Blood Count 4.37 Hemoglobin 12.1 Hematocrit 37.6 Mean 86.0 Corpuscular Volume Mean 27.7 L Corpuscular Hemoglobin Mean 32.2 Corpuscular Hemoglobin Conc ent Red Cell 13.0 Distribution Width Platelet Count 139 #L Mean Platelet 11.1 H Volume Immature 0.600 H Granulocytes % Neutrophils % Segmented 46 Neutrophils % (Manual) Band 16 H Neutrophils % (Manual) Lymphocytes % Lymphocytes % 34 (Manual) Reactive 4 H Lymphocytes % (Manual) Monocytes % Eosinophils % Basophils % Nucleated Red 0.0 Blood Cells % Immature 0.070 H Granulocytes # Neutrophils # Neutrophils # 5.3 (Manual) Band 1.7 H Neutrophils # Lymphocytes 3.7 H (Manual) Lymphocytes # Reactive 0.4 H Lymphocytes # Monocytes # Eosinophils # Basophils # Nucleated Red Blood Cells # Platelet DECREASED Estimate Giant Platelets 1 H Platelet @See below Morphology Comment Polychromasia 1+ Poikilocytosis 1+ Anisocytosis 3+ Microcytosis 3+ Prothrombin 16.5 #H Time Prothrombin 1.3 Time Ratio INR 1.32 International Normalized Rati o Activated 29.2 Partial Thrombo plast Time Sodium Level 147 H Potassium Level 3.6 Chloride Level 111 H Carbon Dioxide 25 Level Anion Gap 11 Blood Urea 17 Nitrogen Creatinine 0.87 Est Glomerular > 60 Filtrat Rate mL/min Glucose Level 123 Calcium Level 9.0 Phosphorus 3.9 Level Magnesium Level 3.1 H Blood Gas BLMV Specimen Source Arterial Blood 08/28/2018 3:22 Date Drawn :33 PM Arterial Blood 7.395 pH (Temp corrected ) Arterial Blood 44.3 pCO2 (Temp correct) Arterial Blood 84.4 pO2 (Temp corrected ) Arterial Blood 26.5 H HCO3 Arterial Blood 1.3 Base Excess Arterial Blood 95.5 Oxygen Saturati on Elier Test N/A Arterial Blood A-Line Gas Puncture Site Arterial 0.1 Blood Carboxyhe moglobin Arterial Blood 0.3 Methemoglobin Mixed Venous 33.7 Blood PO2 Mixed Venous 61.8 L Blood O2 Saturation Mixed Venous 13.2 Blood Total Hemoglobi n Mixed Venous 61.4 Blood Oxyhemogl obin Mixed Venous 0.2 Bld Carboxyhemo globin Mixed Venous 0.4 Blood Methemogl obin Blood Gas A-a 367.1 H O2 Differential Oxyhemoglobin 95.1 Percent Blood Gas 37.0 Temperature Blood Gas 10.0 Respiration Rate Blood Gas 17 Actual Respiration Rat e Blood Gas VENT - AC Modality FiO2 70.0 Blood Gas Tidal 500.0 Volume Blood Gas Low 5.0 PEEP Setting Blood Gas RDIX Notified Whom Blood Gas 08/28/2018 3:58 Notified Time :07 PM Test 08/28/18 18:39 08/28/18 20:18 08/28/18 21:06 08/28/18 21:49 Bedside Glucose 148 212 Blood Gas Blood arterial Specimen Source Arterial Blood 08/28/2018 8:18: Date Drawn 39 PM Arterial Blood 7.341 L pH (Temp corrected ) Arterial Blood 49.4 H pCO2 (Temp correct) Arterial Blood 79.4 L pO2 (Temp corrected ) Arterial Blood 26.1 H HCO3 Arterial Blood -0.1 Base Excess Arterial Blood 94.5 L Oxygen Saturati on Elier Test N/A Arterial Blood A-Line Gas Puncture Site Arterial 0.3 Blood Carboxyhe moglobin Arterial Blood 0.2 Methemoglobin Blood Gas A-a 149.0 H O2 Differential Oxyhemoglobin 94.0 Percent Blood Gas 37.0 Temperature Blood Gas 20 Actual Respiration Rat e Blood Gas VENT - CPAP Modality FiO2 40.0 Blood Gas Low 5.0 PEEP Setting Blood Gas 12 Pressure Support Blood Gas MG Notified Whom Blood Gas 08/28/2018 8:25: Notified Time 28 PM White Blood 9.6 Count Red Blood Count 3.76 L Hemoglobin 10.5 L Hematocrit 33.0 L Mean 87.8 Corpuscular Volume Mean 27.9 L Corpuscular Hemoglobin Mean 31.8 L Corpuscular Hemoglobin Conc ent Red Cell 13.4 Distribution Width Platelet Count 148 Mean Platelet 10.8 H Volume Immature 0.600 H Granulocytes % Neutrophils % 84.1 H Lymphocytes % 9.0 L Monocytes % 5.8 Eosinophils % 0.2 Basophils % 0.3 Nucleated Red 0.0 Blood Cells % Immature 0.060 H Granulocytes # Neutrophils # 8.1 H Lymphocytes # 0.9 Monocytes # 0.6 Eosinophils # 0.0 Basophils # 0.0 Nucleated Red 0.0 Blood Cells # Prothrombin 15.1 H Time Prothrombin 1.2 Time Ratio INR 1.18 International Normalized Rati o Activated 32.8 Partial Thrombo plast Time Sodium Level 147 H Potassium Level 4.8 Chloride Level 115 H Carbon Dioxide 25 Level Anion Gap 7 Blood Urea 16 Nitrogen Creatinine 0.93 Est Glomerular > 60 Filtrat Rate mL/min Glucose Level 197 Calcium Level 8.6 Phosphorus 3.4 Level Magnesium Level 2.6 H Test 08/28/18 22:55 08/29/18 00:52 5/15/19 02:02 08/29/18 02:59 Blood Gas BLMV Specimen Source Arterial Blood 08/28/2018 11:05 Date Drawn :24 PM Arterial Blood VENOUS LINE Gas Puncture Site Elier Test N/A Mixed Venous 31.6 Blood PO2 Mixed Venous 58.7 L Blood O2 Saturation Mixed Venous 11.7 Blood Total Hemoglobi n Mixed Venous 58.3 Blood Oxyhemogl obin Mixed Venous 0.3 Bld Carboxyhemo globin Mixed Venous 0.4 Blood Methemogl obin Blood Gas 37.0 Temperature Blood Gas NASAL CANNULA Modality FiO2 36.0 Blood Gas MG Notified Whom Blood Gas 08/28/2018 11:13 Notified Time :16 PM Bedside Glucose 197 219 169 Test 08/29/18 04:01 08/29/18 04:35 08/29/18 04:46 08/29/18 05:01 Bedside Glucose 151 140 White Blood 8.7 Count Red Blood Count 3.85 L Hemoglobin 10.5 L Hematocrit 34.3 L Mean 89.1 Corpuscular Volume Mean 27.3 L Corpuscular Hemoglobin Mean 30.6 L Corpuscular Hemoglobin Conc ent Red Cell 13.7 Distribution Width Platelet Count 159 Mean Platelet 11.6 H Volume Immature 0.500 H Granulocytes % Neutrophils % 83.6 H Lymphocytes % 9.2 L Monocytes % 6.5 Eosinophils % 0.0 Basophils % 0.2 Nucleated Red 0.0 Blood Cells % Immature 0.040 H Granulocytes # Neutrophils # 7.3 Lymphocytes # 0.8 Monocytes # 0.6 Eosinophils # 0.0 Basophils # 0.0 Nucleated Red 0.0 Blood Cells # Prothrombin 14.6 Time Prothrombin 1.1 Time Ratio INR 1.13 International Normalized Rati o Activated 35.9 H Partial Thrombo plast Time Sodium Level 147 H Potassium Level 4.8 Chloride Level 112 H Carbon Dioxide 26 Level Anion Gap 9 Blood Urea 19 Nitrogen Creatinine 1.05 H Est Glomerular 52 L Filtrat Rate mL/min Glucose Level 141 # Calcium Level 9.1 Magnesium Level 2.5 Blood Gas Blood Specimen arterial Source Arterial Blood 08/29/2018 5:00 Date Drawn :20 AM Arterial Blood 7.364 pH (Temp corrected ) Arterial Blood 46.3 H pCO2 (Temp correct) Arterial Blood 77.4 L pO2 (Temp corrected ) Arterial Blood 25.8 HCO3 Arterial Blood 0.1 Base Excess Arterial Blood 94.5 L Oxygen Saturati on Elier Test N/A Arterial Blood A-Line Gas Puncture Site Arterial 0.1 Blood Carboxyhe moglobin Arterial Blood 0.2 Methemoglobin Blood Gas A-a 82.1 H O2 Differential Oxyhemoglobin 94.2 Percent Blood Gas 37.0 Temperature Blood Gas NASAL CANNULA Modality FiO2 30.0 Blood Gas MG Notified Whom Blood Gas 08/29/2018 5:06 Notified Time :13 AM Test 08/29/18 06:10 Bedside Glucose 133 Exam/Review of Systems Exam Vitals Vital Signs Date Temp Pulse Resp B/P (MAP) Pulse Ox O2 O2 Flow FiO2 Time Delivery Rate 08/29/18 99 30 109/58 95 Nasal 3.0 06:00 (75) Cannula 08/29/18 99.8 06:00 08/28/18 40 20:00 Intake and Output 08/28/18 08/28/18 08/29/18 1515:00 23:00 07:00 IntakeIntake Total 1692 ml 1043.675 ml 1054.768 ml OutputOutput Total 2827 ml 1600 ml 347 ml BalanceBalance -1135 ml -556.325 ml 707.768 ml Constitutional: alert, frail; No distress Psych: no complaints Head: normocephalic Eyes: PERRL; No icteric Respiratory: diminished breath sounds, other (wound vac mid chest, multiple chest tubes); No crackles/rales, No labored breathing Cardiovascular: regular rate and rhythm Gastrointestinal: soft, bowel sounds Extremities: No edema Neurological: lethargic, other (sitting in a chair at bedside, falling asleep); No focal weakness Results Results 24hrs Laboratory Tests Test 08/28/18 14:40 08/28/18 15:00 08/28/18 15:39 08/28/18 16:12 Bedside Glucose 124 133 White Blood 11.1 #H Count Red Blood Count 4.37 Hemoglobin 12.1 Hematocrit 37.6 Mean 86.0 Corpuscular Volume Mean 27.7 L Corpuscular Hemoglobin Mean 32.2 Corpuscular Hemoglobin Conc ent Red Cell 13.0 Distribution Width Platelet Count 139 #L Mean Platelet 11.1 H Volume Immature 0.600 H Granulocytes % Neutrophils % Segmented 46 Neutrophils % (Manual) Band 16 H Neutrophils % (Manual) Lymphocytes % Lymphocytes % 34 (Manual) Reactive 4 H Lymphocytes % (Manual) Monocytes % Eosinophils % Basophils % Nucleated Red 0.0 Blood Cells % Immature 0.070 H Granulocytes # Neutrophils # Neutrophils # 5.3 (Manual) Band 1.7 H Neutrophils # Lymphocytes 3.7 H (Manual) Lymphocytes # Reactive 0.4 H Lymphocytes # Monocytes # Eosinophils # Basophils # Nucleated Red Blood Cells # Platelet DECREASED Estimate Giant Platelets 1 H Platelet @See below Morphology Comment Polychromasia 1+ Poikilocytosis 1+ Anisocytosis 3+ Microcytosis 3+ Prothrombin 16.5 #H Time Prothrombin 1.3 Time Ratio INR 1.32 International Normalized Rati o Activated 29.2 Partial Thrombo plast Time Sodium Level 147 H Potassium Level 3.6 Chloride Level 111 H Carbon Dioxide 25 Level Anion Gap 11 Blood Urea 17 Nitrogen Creatinine 0.87 Est Glomerular > 60 Filtrat Rate mL/min Glucose Level 123 Calcium Level 9.0 Phosphorus 3.9 Level Magnesium Level 3.1 H Blood Gas BLMV Specimen Source Arterial Blood 08/28/2018 3:22 Date Drawn :33 PM Arterial Blood 7.395 pH (Temp corrected ) Arterial Blood 44.3 pCO2 (Temp correct) Arterial Blood 84.4 pO2 (Temp corrected ) Arterial Blood 26.5 H HCO3 Arterial Blood 1.3 Base Excess Arterial Blood 95.5 Oxygen Saturati on Elier Test N/A Arterial Blood A-Line Gas Puncture Site Arterial 0.1 Blood Carboxyhe moglobin Arterial Blood 0.3 Methemoglobin Mixed Venous 33.7 Blood PO2 Mixed Venous 61.8 L Blood O2 Saturation Mixed Venous 13.2 Blood Total Hemoglobi n Mixed Venous 61.4 Blood Oxyhemogl obin Mixed Venous 0.2 Bld Carboxyhemo globin Mixed Venous 0.4 Blood Methemogl obin Blood Gas A-a 367.1 H O2 Differential Oxyhemoglobin 95.1 Percent Blood Gas 37.0 Temperature Blood Gas 10.0 Respiration Rate Blood Gas 17 Actual Respiration Rat e Blood Gas VENT - AC Modality FiO2 70.0 Blood Gas Tidal 500.0 Volume Blood Gas Low 5.0 PEEP Setting Blood Gas RDIX Notified Whom Blood Gas 08/28/2018 3:58 Notified Time :07 PM Test 08/28/18 18:39 08/28/18 20:18 08/28/18 21:06 08/28/18 21:49 Bedside Glucose 148 212 Blood Gas Blood arterial Specimen Source Arterial Blood 08/28/2018 8:18: Date Drawn 39 PM Arterial Blood 7.341 L pH (Temp corrected ) Arterial Blood 49.4 H pCO2 (Temp correct) Arterial Blood 79.4 L pO2 (Temp corrected ) Arterial Blood 26.1 H HCO3 Arterial Blood -0.1 Base Excess Arterial Blood 94.5 L Oxygen Saturati on Elier Test N/A Arterial Blood A-Line Gas Puncture Site Arterial 0.3 Blood Carboxyhe moglobin Arterial Blood 0.2 Methemoglobin Blood Gas A-a 149.0 H O2 Differential Oxyhemoglobin 94.0 Percent Blood Gas 37.0 Temperature Blood Gas 20 Actual Respiration Rat e Blood Gas VENT - CPAP Modality FiO2 40.0 Blood Gas Low 5.0 PEEP Setting Blood Gas 12 Pressure Support Blood Gas MG Notified Whom Blood Gas 08/28/2018 8:25: Notified Time 28 PM White Blood 9.6 Count Red Blood Count 3.76 L Hemoglobin 10.5 L Hematocrit 33.0 L Mean 87.8 Corpuscular Volume Mean 27.9 L Corpuscular Hemoglobin Mean 31.8 L Corpuscular Hemoglobin Conc ent Red Cell 13.4 Distribution Width Platelet Count 148 Mean Platelet 10.8 H Volume Immature 0.600 H Granulocytes % Neutrophils % 84.1 H Lymphocytes % 9.0 L Monocytes % 5.8 Eosinophils % 0.2 Basophils % 0.3 Nucleated Red 0.0 Blood Cells % Immature 0.060 H Granulocytes # Neutrophils # 8.1 H Lymphocytes # 0.9 Monocytes # 0.6 Eosinophils # 0.0 Basophils # 0.0 Nucleated Red 0.0 Blood Cells # Prothrombin 15.1 H Time Prothrombin 1.2 Time Ratio INR 1.18 International Normalized Rati o Activated 32.8 Partial Thrombo plast Time Sodium Level 147 H Potassium Level 4.8 Chloride Level 115 H Carbon Dioxide 25 Level Anion Gap 7 Blood Urea 16 Nitrogen Creatinine 0.93 Est Glomerular > 60 Filtrat Rate mL/min Glucose Level 197 Calcium Level 8.6 Phosphorus 3.4 Level Magnesium Level 2.6 H Test 08/28/18 22:55 08/29/18 00:52 08/29/18 02:02 08/29/18 02:59 Blood Gas BLMV Specimen Source Arterial Blood 08/28/2018 11:05 Date Drawn :24 PM Arterial Blood VENOUS LINE Gas Puncture Site Elier Test N/A Mixed Venous 31.6 Blood PO2 Mixed Venous 58.7 L Blood O2 Saturation Mixed Venous 11.7 Blood Total Hemoglobi n Mixed Venous 58.3 Blood Oxyhemogl obin Mixed Venous 0.3 Bld Carboxyhemo globin Mixed Venous 0.4 Blood Methemogl obin Blood Gas 37.0 Temperature Blood Gas NASAL CANNULA Modality FiO2 36.0 Blood Gas MG Notified Whom Blood Gas 08/28/2018 11:13 Notified Time :16 PM Bedside Glucose 197 219 169 Test 08/29/18 04:01 08/29/18 04:35 08/29/18 04:46 08/29/18 05:01 Bedside Glucose 151 140 White Blood 8.7 Count Red Blood Count 3.85 L Hemoglobin 10.5 L Hematocrit 34.3 L Mean 89.1 Corpuscular Volume Mean 27.3 L Corpuscular Hemoglobin Mean 30.6 L Corpuscular Hemoglobin Conc ent Red Cell 13.7 Distribution Width Platelet Count 159 Mean Platelet 11.6 H Volume Immature 0.500 H Granulocytes % Neutrophils % 83.6 H Lymphocytes % 9.2 L Monocytes % 6.5 Eosinophils % 0.0 Basophils % 0.2 Nucleated Red 0.0 Blood Cells % Immature 0.040 H Granulocytes # Neutrophils # 7.3 Lymphocytes # 0.8 Monocytes # 0.6 Eosinophils # 0.0 Basophils # 0.0 Nucleated Red 0.0 Blood Cells # Prothrombin 14.6 Time Prothrombin 1.1 Time Ratio INR 1.13 International Normalized Rati o Activated 35.9 H Partial Thrombo plast Time Sodium Level 147 H Potassium Level 4.8 Chloride Level 112 H Carbon Dioxide 26 Level Anion Gap 9 Blood Urea 19 Nitrogen Creatinine 1.05 H Est Glomerular 52 L Filtrat Rate mL/min Glucose Level 141 # Calcium Level 9.1 Magnesium Level 2.5 Blood Gas Blood Specimen arterial Source Arterial Blood 08/29/2018 5:00 Date Drawn :20 AM Arterial Blood 7.364 pH (Temp corrected ) Arterial Blood 46.3 H pCO2 (Temp correct) Arterial Blood 77.4 L pO2 (Temp corrected ) Arterial Blood 25.8 HCO3 Arterial Blood 0.1 Base Excess Arterial Blood 94.5 L Oxygen Saturati on Elier Test N/A Arterial Blood A-Line Gas Puncture Site Arterial 0.1 Blood Carboxyhe moglobin Arterial Blood 0.2 Methemoglobin Blood Gas A-a 82.1 H O2 Differential Oxyhemoglobin 94.2 Percent Blood Gas 37.0 Temperature Blood Gas NASAL CANNULA Modality FiO2 30.0 Blood Gas MG Notified Whom Blood Gas 08/29/2018 5:06 Notified Time :13 AM Test 08/29/18 06:10 Bedside Glucose 133 Medications Medication Current Medications IV Flush (NS 3 ml) 3 ml PER PROTOCOL IV ; Start 08/24/18 at 23:00 Ondansetron HCl (Zofran Inj) 4 mg Q6H PRN IV NAUSEA/VOMITING Last administered on 08/29/18 01:53; Admin Dose 4 MG; Start 08/24/18 at 23:00 Nitroglycerin (Nitroglycerin (Sl Tab) 0.4 Mg) 1 tab Q5M PRN SL .CHEST PAIN; Start 08/24/18 at 23:00 Albuterol/ Ipratropium (Duoneb) 3 ml Q2H RESP THERAPY PRN HHN SHORTNESS OF BREATH; Start 08/24/18 at 23:00 Lisinopril (Zestril) 10 mg DAILY PO Last administered on 08/27/18 09:13; Admin Dose 10 MG; Start 08/25/18 at 09:00 Pantoprazole Sodium (Protonix) 20 mg BID@0600,1800 PO Last administered on 08/29/18at 06:12; Admin Dose 20 MG; Start 08/25/18 at 06:00 Atorvastatin Calcium (Lipitor) 80 mg HS PO Last administered on 08/27/18 21:37; Admin Dose 80 MG; Start 08/25/18 at 21:00 Metoprolol Succinate (Toprol Xl) 25 mg DAILY PO Last administered on 08/27/18 09:13; Admin Dose 25 MG; Start 08/26/18 at 09:00 Ranolazine (Ranexa) 500 mg Q12 PO Last administered on 08/27/18 21:37; Admin Dose 500 MG; Start 08/25/18 at 21:00 Nitroglycerin/ Dextrose 250 ml @ 1.5 mls/hr PER PROTOCOL IV Last administered on 08/28/18 15:09; Admin Dose 0.45 MLS/HR; Start 08/28/18 at 15:00 Dopamine HCl/ Dextrose 250 ml @ 5.535 mls/ hr PER PROTOCOL IV Last administered on 08/28/18 15:09; Admin Dose 2.768 MLS/HR; Start 08/28/18 at 15:00 Potassium Chloride 40 meq/ Calcium Chloride 1 gm/Dextrose/ Sodium Chloride 1,030 ml @ 60 mls/hr [id number] IV Last administered on 08/28/18at 18:42; Admin Dose 60 MLS/HR; Start 08/28/18 at 16:12 Cefazolin Sodium 50 ml @ 100 mls/hr Q8H IVPB Last administered on 08/29/18at 00:56; Admin Dose 100 MLS/HR; Start 08/28/18 at 16:30; Stop 08/29/18 at 08:59 Hydromorphone HCl (Dilaudid) 0.2 mg Q15M PRN IV PAIN LEVEL 1-5; Start 08/28/18 at 16:30 Hydromorphone HCl (Dilaudid) 0.4 mg Q15M PRN IV PAIN LEVEL 6-10 Last administered on 08/28/18at 17:15; Admin Dose 0.4 MG; Start 08/28/18 at 16:30 Hydromorphone HCl (Dilaudid) 0.2 mg Q1H PRN IV PAIN LEVEL 1-5 Last administered on 08/29/18at 00:11; Admin Dose 0.2 MG; Start 08/28/18 at 16:30 Hydromorphone HCl (Dilaudid) 0.4 mg Q1H PRN IV PAIN LEVEL 6-10; Start 08/28/18 at 16:30 Oxycodone/ Acetaminophen (Percocet (5/ 325)) 1 tab Q3H PRN PO PAIN LEVEL 1-5 Last administered on 08/29/18at 03:31; Admin Dose 1 TAB; Start 08/28/18 at 16:30 Oxycodone/ Acetaminophen (Percocet (5/ 325)) 2 tab Q3H PRN PO PAIN LEVEL 6-10; Start 08/28/18 at 16:30 Ondansetron HCl (Zofran Inj) 2 mg ONCE PRN IV NAUSEA AND/OR VOMITING; Start 08/28/18 at 16:30 Famotidine (Pepcid Iv) 20 mg BID@08,20 IV Last administered on 08/28/18at 21:18; Admin Dose 20 MG; Start 08/28/18 at 20:00 Aspirin (Aspirin) 325 mg DAILY PO ; Start 08/29/18 at 09:00 Insulin Aspart (Novolog Insulin Pen) NOVOLOG *MODERATE* ALGORI... Q4 SC Last administered on 08/28/18at 21:54; Admin Dose 4 UNIT; Start 08/28/18 at 17:00 Acetaminophen (Tylenol Tab) 650 mg Q3H PRN PO ELEVATED TEMPERATURE; Start 08/28/18 at 16:30 Acetaminophen (Tylenol Supp) 650 mg Q3H PRN [place] ELEVATED TEMPERATURE; Start 08/28/18 at 16:30 Potassium Chloride 50 ml @ 50 mls/hr SEE DIRECTION PRN IVPB K+ LEVEL Last administered on 08/28/18at 18:45; Admin Dose 50 MLS/HR; Start 08/28/18 at 16:30 Magnesium Sulfate/ Dextrose 100 ml @ 100 mls/hr PRN PRN IVPB PENDING LAB VALUE; Start 08/28/18 at 16:30 Lidocaine (Lidoderm) 1 patch DAILY TD Last administered on 08/28/18at 18:25; Admin Dose 1 PATCH; Start 08/28/18 at 18:30 Diagnostic Test (Pha) (Accu-Chek) 1 ea Q1H XX Last administered on 08/29/18at 06:10; Admin Dose 1 EA; Start 08/29/18 at 01:00 Insulin Human Regular 100 unit/ Sodium Chloride 100 ml @ 0 mls/hr PER PROTOCOL IV Last administered on 08/29/18at 01:35; Admin Dose 3 MLS/HR; Start 08/29/18 at 01:00 Miscellaneous Information (* Miscellaneous Pharmacy Order) Treatment of Hypoglycemia: 1.BG 51... Per protocol XX ; Start 08/29/18 at 01:00 Dextrose (D50w Syringe) 25 ml Q15M PRN IV .DECREASED GLUCOSE; Start 08/29/18 at 01:00 Dextrose (D50w Syringe) 50 ml Q15M PRN IV .DECREASED GLUCOSE; Start 08/29/18 at 01:00 Albumin Human 250 ml @ 250 mls/hr PRN PRN IV CVP <8, CI <2.0; Start 08/29/18 at 06:30 JODI GONZALEZ August 29, 2018 06:31
[2018-08-29] MEDS: FAMOTIDINE 20 MG INJ IV SCH (07:37)
--- NOTE | 2018-08-29 08:57 | CONS ---
Consult Date/Type/Reason Admit Date/Time August 27, 2018 at 09:46 Initial Consult Date 08/25/18 Type of Consultation: cv Requesting Provider: JORGE A ALLEN MD Date/Time of Note DATE: 08/29/18 TIME: 08:53 Subjective interventional cardiology follow-up progress note Subjective: Discussed with the staff and multiple family members. Discussed with multiple physicians. s/p CABG 08/28 pt is extubated but still in ICU She c/o chest wall pain she remains in NSR Objective: General: no acute distress HEENT: NC/AT. pupils are equal. round. NECK: S/P R IJ PA catheter no stridor. CV: RRR. systolic murmur; no gallop or rubs. PULM: no wheezing or rhonchi. CHEST S/P sternotomy. s/p multiple chest tube in place GI: SOFT, NT, ND, no rebound or guarding Extremity: trace B/L LE edema. no clubbing. neuro: awake and alert, OX3. Psych: calm and pleasant rectal: deferred Vascular: Right femoral no bleeding or hematoma. No bruit PA pressure 33/22 cvp 14 Echocardiogram was personally reviewed which shows: Normal left ventricular systolic function. Normal left ventricular cavity size. Ejection fraction is visually estimated at 60 %. Tissue Doppler/Mitral Doppler indices are consistent with impaired relaxation (Stage I diastolic dysfunction). E/E'= 9. Normal appearance and function of the mitral valve with trace physiologic regurgitation. No significant aortic stenosis or insufficiency. Aortic cusps appear mildly calcified. Trileaflet aortic valve. Normal appearance and function of the tricuspid valve with trace physiologic r egurgitation. Estimated peak PA systolic pressure 27 mmHg. CXR . Interval extubation. 2. Stable postsurgical changes of a CABG. 3. Mild bibasilar atelectasis. 4. Multiple support lines tubes as described. Objective Vitals Vital Signs Date Temp Pulse Resp B/P (MAP) Pulse Ox O2 O2 Flow FiO2 Time Delivery Rate 08/29/18 98.9 08:08 08/29/18 99 30 109/58 95 Nasal 3.0 06:00 (75) Cannula 08/28/18 40 20:00 Intake and Output 08/28/18 08/28/18 08/29/18 1515:00 23:00 07:00 IntakeIntake Total 1692 ml 1043.675 ml 1054.768 ml OutputOutput Total 2827 ml 1600 ml 347 ml BalanceBalance -1135 ml -556.325 ml 707.768 ml Results/Medications Result Diagram: 08/29/18 0435 08/29/18 0435 Results 24 hrs Laboratory Tests Test 08/28/18 14:40 08/28/18 15:00 08/28/18 15:39 08/28/18 16:12 Bedside Glucose 124 133 White Blood 11.1 #H Count Red Blood Count 4.37 Hemoglobin 12.1 Hematocrit 37.6 Mean 86.0 Corpuscular Volume Mean 27.7 L Corpuscular Hemoglobin Mean 32.2 Corpuscular Hemoglobin Conc ent Red Cell 13.0 Distribution Width Platelet Count 139 #L Mean Platelet 11.1 H Volume Immature 0.600 H Granulocytes % Neutrophils % Segmented 46 Neutrophils % (Manual) Band 16 H Neutrophils % (Manual) Lymphocytes % Lymphocytes % 34 (Manual) Reactive 4 H Lymphocytes % (Manual) Monocytes % Eosinophils % Basophils % Nucleated Red 0.0 Blood Cells % Immature 0.070 H Granulocytes # Neutrophils # Neutrophils # 5.3 (Manual) Band 1.7 H Neutrophils # Lymphocytes 3.7 H (Manual) Lymphocytes # Reactive 0.4 H Lymphocytes # Monocytes # Eosinophils # Basophils # Nucleated Red Blood Cells # Platelet DECREASED Estimate Giant Platelets 1 H Platelet @See below Morphology Comment Polychromasia 1+ Poikilocytosis 1+ Anisocytosis 3+ Microcytosis 3+ Prothrombin 16.5 #H Time Prothrombin 1.3 Time Ratio INR 1.32 International Normalized Rati o Activated 29.2 Partial Thrombo plast Time Sodium Level 147 H Potassium Level 3.6 Chloride Level 111 H Carbon Dioxide 25 Level Anion Gap 11 Blood Urea 17 Nitrogen Creatinine 0.87 Est Glomerular > 60 Filtrat Rate mL/min Glucose Level 123 Calcium Level 9.0 Phosphorus 3.9 Level Magnesium Level 3.1 H Blood Gas BLMV Specimen Source Arterial Blood 08/28/2018 3:22 Date Drawn :33 PM Arterial Blood 7.395 pH (Temp corrected ) Arterial Blood 44.3 pCO2 (Temp correct) Arterial Blood 84.4 pO2 (Temp corrected ) Arterial Blood 26.5 H HCO3 Arterial Blood 1.3 Base Excess Arterial Blood 95.5 Oxygen Saturati on Elier Test N/A Arterial Blood A-Line Gas Puncture Site Arterial 0.1 Blood Carboxyhe moglobin Arterial Blood 0.3 Methemoglobin Mixed Venous 33.7 Blood PO2 Mixed Venous 61.8 L Blood O2 Saturation Mixed Venous 13.2 Blood Total Hemoglobi n Mixed Venous 61.4 Blood Oxyhemogl obin Mixed Venous 0.2 Bld Carboxyhemo globin Mixed Venous 0.4 Blood Methemogl obin Blood Gas A-a 367.1 H O2 Differential Oxyhemoglobin 95.1 Percent Blood Gas 37.0 Temperature Blood Gas 10.0 Respiration Rate Blood Gas 17 Actual Respiration Rat e Blood Gas VENT - AC Modality FiO2 70.0 Blood Gas Tidal 500.0 Volume Blood Gas Low 5.0 PEEP Setting Blood Gas RDIX Notified Whom Blood Gas 08/28/2018 3:58 Notified Time :07 PM Test 08/28/18 18:39 08/28/18 20:18 08/28/18 21:06 08/28/18 21:49 Bedside Glucose 148 212 Blood Gas Blood arterial Specimen Source Arterial Blood 08/28/2018 8:18: Date Drawn 39 PM Arterial Blood 7.341 L pH (Temp corrected ) Arterial Blood 49.4 H pCO2 (Temp correct) Arterial Blood 79.4 L pO2 (Temp corrected ) Arterial Blood 26.1 H HCO3 Arterial Blood -0.1 Base Excess Arterial Blood 94.5 L Oxygen Saturati on Elier Test N/A Arterial Blood A-Line Gas Puncture Site Arterial 0.3 Blood Carboxyhe moglobin Arterial Blood 0.2 Methemoglobin Blood Gas A-a 149.0 H O2 Differential Oxyhemoglobin 94.0 Percent Blood Gas 37.0 Temperature Blood Gas 20 Actual Respiration Rat e Blood Gas VENT - CPAP Modality FiO2 40.0 Blood Gas Low 5.0 PEEP Setting Blood Gas 12 Pressure Support Blood Gas MG Notified Whom Blood Gas 08/28/2018 8:25: Notified Time 28 PM White Blood 9.6 Count Red Blood Count 3.76 L Hemoglobin 10.5 L Hematocrit 33.0 L Mean 87.8 Corpuscular Volume Mean 27.9 L Corpuscular Hemoglobin Mean 31.8 L Corpuscular Hemoglobin Conc ent Red Cell 13.4 Distribution Width Platelet Count 148 Mean Platelet 10.8 H Volume Immature 0.600 H Granulocytes % Neutrophils % 84.1 H Lymphocytes % 9.0 L Monocytes % 5.8 Eosinophils % 0.2 Basophils % 0.3 Nucleated Red 0.0 Blood Cells % Immature 0.060 H Granulocytes # Neutrophils # 8.1 H Lymphocytes # 0.9 Monocytes # 0.6 Eosinophils # 0.0 Basophils # 0.0 Nucleated Red 0.0 Blood Cells # Prothrombin 15.1 H Time Prothrombin 1.2 Time Ratio INR 1.18 International Normalized Rati o Activated 32.8 Partial Thrombo plast Time Sodium Level 147 H Potassium Level 4.8 Chloride Level 115 H Carbon Dioxide 25 Level Anion Gap 7 Blood Urea 16 Nitrogen Creatinine 0.93 Est Glomerular > 60 Filtrat Rate mL/min Glucose Level 197 Calcium Level 8.6 Phosphorus 3.4 Level Magnesium Level 2.6 H Test 08/28/18 22:55 08/29/18 00:52 08/29/18 02:02 08/29/18 02:59 Blood Gas BLMV Specimen Source Arterial Blood 08/28/2018 11:05 Date Drawn :24 PM Arterial Blood VENOUS LINE Gas Puncture Site Elier Test N/A Mixed Venous 31.6 Blood PO2 Mixed Venous 58.7 L Blood O2 Saturation Mixed Venous 11.7 Blood Total Hemoglobi n Mixed Venous 58.3 Blood Oxyhemogl obin Mixed Venous 0.3 Bld Carboxyhemo globin Mixed Venous 0.4 Blood Methemogl obin Blood Gas 37.0 Temperature Blood Gas NASAL CANNULA Modality FiO2 36.0 Blood Gas MG Notified Whom Blood Gas 08/28/2018 11:13 Notified Time :16 PM Bedside Glucose 197 219 169 Test 08/29/18 04:01 08/29/18 04:35 08/29/18 04:46 08/29/18 05:01 Bedside Glucose 151 140 White Blood 8.7 Count Red Blood Count 3.85 L Hemoglobin 10.5 L Hematocrit 34.3 L Mean 89.1 Corpuscular Volume Mean 27.3 L Corpuscular Hemoglobin Mean 30.6 L Corpuscular Hemoglobin Conc ent Red Cell 13.7 Distribution Width Platelet Count 159 Mean Platelet 11.6 H Volume Immature 0.500 H Granulocytes % Neutrophils % 83.6 H Lymphocytes % 9.2 L Monocytes % 6.5 Eosinophils % 0.0 Basophils % 0.2 Nucleated Red 0.0 Blood Cells % Immature 0.040 H Granulocytes # Neutrophils # 7.3 Lymphocytes # 0.8 Monocytes # 0.6 Eosinophils # 0.0 Basophils # 0.0 Nucleated Red 0.0 Blood Cells # Prothrombin 14.6 Time Prothrombin 1.1 Time Ratio INR 1.13 International Normalized Rati o Activated 35.9 H Partial Thrombo plast Time Sodium Level 147 H Potassium Level 4.8 Chloride Level 112 H Carbon Dioxide 26 Level Anion Gap 9 Blood Urea 19 Nitrogen Creatinine 1.05 H Est Glomerular 52 L Filtrat Rate mL/min Glucose Level 141 # Calcium Level 9.1 Magnesium Level 2.5 Blood Gas Blood Specimen arterial Source Arterial Blood 08/29/2018 5:00 Date Drawn :20 AM Arterial Blood 7.364 pH (Temp corrected ) Arterial Blood 46.3 H pCO2 (Temp correct) Arterial Blood 77.4 L pO2 (Temp corrected ) Arterial Blood 25.8 HCO3 Arterial Blood 0.1 Base Excess Arterial Blood 94.5 L Oxygen Saturati on Elier Test N/A Arterial Blood A-Line Gas Puncture Site Arterial 0.1 Blood Carboxyhe moglobin Arterial Blood 0.2 Methemoglobin Blood Gas A-a 82.1 H O2 Differential Oxyhemoglobin 94.2 Percent Blood Gas 37.0 Temperature Blood Gas NASAL CANNULA Modality FiO2 30.0 Blood Gas MG Notified Whom Blood Gas 08/29/2018 5:06 Notified Time :13 AM Test 08/29/18 06:10 08/29/18 08:11 Bedside Glucose 133 132 Home Meds Reported Medications Pantoprazole* (Pantoprazole*) 20 Mg Tablet.dr, 20 MG PO BID, TAB 08/24/18 Lisinopril* (Lisinopril*) 10 Mg Tablet, 10 MG PO DAILY, #30 TAB 08/24/18 Medications Current Medications IV Flush (NS 3 ml) 3 ml PER PROTOCOL IV ; Start 08/24/18 at 23:00 Ondansetron HCl (Zofran Inj) 4 mg Q6H PRN IV NAUSEA/VOMITING Last administered on 08/29/18at 08:21; Admin Dose 4 MG; Start 08/24/18 at 23:00 Nitroglycerin (Nitroglycerin (Sl Tab) 0.4 Mg) 1 tab Q5M PRN SL .CHEST PAIN; Start 08/24/18 at 23:00 Albuterol/ Ipratropium (Duoneb) 3 ml Q2H RESP THERAPY PRN HHN SHORTNESS OF BREATH; Start 08/24/18 at 23:00 Lisinopril (Zestril) 10 mg DAILY PO Last administered on 08/27/18at 09:13; Admin Dose 10 MG; Start 08/25/18 at 09:00 Pantoprazole Sodium (Protonix) 20 mg BID@0600,1800 PO Last administered on 08/29/18 06:12; Admin Dose 20 MG; Start 08/25/18 at 06:00 Atorvastatin Calcium (Lipitor) 80 mg HS PO Last administered on 08/27/18 21:37; Admin Dose 80 MG; Start 08/25/18 at 21:00 Metoprolol Succinate (Toprol Xl) 25 mg DAILY PO Last administered on 08/27/18 09:13; Admin Dose 25 MG; Start 08/26/18 at 09:00 Ranolazine (Ranexa) 500 mg Q12 PO Last administered on 08/27/18 21:37; Admin Dose 500 MG; Start 08/25/18 at 21:00 Nitroglycerin/ Dextrose 250 ml @ 1.5 mls/hr PER PROTOCOL IV Last administered on 08/28/18 15:09; Admin Dose 0.45 MLS/HR; Start 08/28/18 at 15:00 Dopamine HCl/ Dextrose 250 ml @ 5.535 mls/ hr PER PROTOCOL IV Last administered on 08/28/18 15:09; Admin Dose 2.768 MLS/HR; Start 08/28/18 at 15:00 Potassium Chloride 40 meq/ Calcium Chloride 1 gm/Dextrose/ Sodium Chloride 1,030 ml @ 60 mls/hr [id number] IV Last administered on 08/28/18 18:42; Admin Dose 60 MLS/HR; Start 08/28/18 at 16:12 Cefazolin Sodium 50 ml @ 100 mls/hr Q8H IVPB Last administered on 08/29/18 00:56; Admin Dose 100 MLS/HR; Start 08/28/18 at 16:30; Stop 08/29/18 at 08:59 Hydromorphone HCl (Dilaudid) 0.2 mg Q1H PRN IV PAIN LEVEL 1-5 Last administered on 08/29/18 00:11; Admin Dose 0.2 MG; Start 08/28/18 at 16:30 Hydromorphone HCl (Dilaudid) 0.4 mg Q1H PRN IV PAIN LEVEL 6-10 Last adminis tered on 08/29/18 08:32; Admin Dose 0.4 MG; Start 08/28/18 at 16:30 Oxycodone/ Acetaminophen (Percocet (5/ 325)) 1 tab Q3H PRN PO PAIN LEVEL 1-5 Last administered on 08/29/18 03:31; Admin Dose 1 TAB; Start 08/28/18 at 16:30 Oxycodone/ Acetaminophen (Percocet (5/ 325)) 2 tab Q3H PRN PO PAIN LEVEL 6-10 Last administered on 08/29/18 07:37; Admin Dose 2 TAB; Start 08/28/18 at 16:30 Ondansetron HCl (Zofran Inj) 2 mg ONCE PRN IV NAUSEA AND/OR VOMITING; Start 08/28/18 at 16:30 Famotidine (Pepcid Iv) 20 mg BID@08,20 IV Last administered on 08/29/18 07:37; Admin Dose 20 MG; Start 08/28/18 at 20:00 Aspirin (Aspirin) 325 mg DAILY PO ; Start 08/29/18 at 09:00 Insulin Aspart (Novolog Insulin Pen) NOVOLOG *MODERATE* ALGORI... Q4 SC Last administered on 08/28/18 21:54; Admin Dose 4 UNIT; Start 08/28/18 at 17:00 Acetaminophen (Tylenol Tab) 650 mg Q3H PRN PO ELEVATED TEMPERATURE Last administered on 08/29/18 08:08; Admin Dose 650 MG; Start 08/28/18 at 16:30 Acetaminophen (Tylenol Supp) 650 mg Q3H PRN MS ELEVATED TEMPERATURE; Start 08/28/18 at 16:30 Potassium Chloride 50 ml @ 50 mls/hr SEE DIRECTION PRN IVPB K+ LEVEL Last administered on 08/28/18 18:45; Admin Dose 50 MLS/HR; Start 08/28/18 at 16:30 Magnesium Sulfate/ Dextrose 100 ml @ 100 mls/hr PRN PRN IVPB PENDING LAB VALUE; Start 08/28/18 at 16:30 Lidocaine (Lidoderm) 1 patch DAILY TD Last administered on 08/28/18 18:25; Admin Dose 1 PATCH; Start 08/28/18 at 18:30 Diagnostic Test (Pha) (Accu-Chek) 1 ea Q1H XX Last administered on 08/29/18at 08:13; Admin Dose 1 EA; Start 08/29/18 at 01:00 Insulin Human Regular 100 unit/ Sodium Chloride 100 ml @ 0 mls/hr PER PROTOCOL IV Last administered on 08/29/18at 01:35; Admin Dose 3 MLS/HR; Start 08/29/18 at 01:00 Miscellaneous Information (* Miscellaneous Pharmacy Order) Treatment of Hypoglycemia: 1.BG 51... Per protocol XX ; Start 08/29/18 at 01:00 Dextrose (D50w Syringe) 25 ml Q15M PRN IV .DECREASED GLUCOSE; Start 08/29/18 at 01:00 Dextrose (D50w Syringe) 50 ml Q15M PRN IV .DECREASED GLUCOSE; Start 08/29/18 at 01:00 Albumin Human 250 ml @ 250 mls/hr PRN PRN IV CVP <8, CI <2.0 Last administered on 08/29/18at 06:44; Admin Dose 250 MLS/HR; Start 08/29/18 at 06:30 Assessment/Plan Hospital Course (Demo Recall) 1. ACS: S/P CABG 08/28 2. Hypertension 3. Diabetes 4. Dyslipidemia 5. Abnormal EKG 6. Family history of coronary artery disease 7. Yazidi Recommendations: Continue with current cardiac care. CONT ASA hold lisinopril for now change toprol xl 12.[address] surgery input is appreciated. post op care and chest tube management as per CT surgery Thank you for his referral. We will continue following with you FRANKY HUDSON MD [facility] FRANKY HUDSON MD August 29, 2018 08:57
[2018-08-29] MEDS: METOPROLOL (XL) 25 MG TAB PO SCH ×2 (09:00→20:43)
[2018-08-29] MEDS: POTASSIUM CHLORIDE 40 MEQ, CALCIUM CHLORIDE 10% 1 GM in DEXTROSE 5%-0.225% NACL 1,000 ML IV SCH (09:22)
[2018-08-29] MEDS: ASPIRIN 325 MG TAB PO SCH (09:34)
--- NOTE | 2018-08-29 09:59 | PN ---
Date/Time of Note Date/Time of Note DATE: 08/29/18 TIME: 09:58 Assessment/Plan Lines/Catheters IV Catheter Type (from Nrsg): Central Line Gonzalez in Place (from Nrsg): Yes Assessment/Plan Assessment/Plan Status post coronary artery bypass grafting Extubated Hemodynamically stable DC [place] catheter DC A-line Cussed with the family and the nursing staff Subjective 24 Hr Interval Summary Constitutional: improved Pain Control: mild Exam/Review of Systems Vital Signs Vitals Vital Signs Date Temp Pulse Resp B/P (MAP) Pulse Ox O2 O2 Flow FiO2 Time Delivery Rate 08/29/18 100 22 119/77 96 09:00 (91) 08/29/18 98.9 08:53 08/29/18 Nasal 3.0 06:00 Cannula 08/28/18 40 20:00 Intake and Output 08/28/18 08/28/18 08/29/18 1515:00 23:00 07:00 IntakeIntake Total 1692 ml 1043.675 ml 1054.768 ml OutputOutput Total 2827 ml 1600 ml 347 ml BalanceBalance -1135 ml -556.325 ml 707.768 ml Exam Eyes: nl conjunctiva, EOMI, nl lids, nl sclera ENMT: nl external ears & nose, nl lips & teeth, nl nasal mucosa & septum, mucosa pink and moist Neck: supple, non-tender Respiratory: clear to auscultation, normal air movement Cardiovascular: regular rate and rhythm, nl pulses Gastrointestinal: soft, nl liver, spleen, non-tender Musculoskeletal: nl extremities to inspection, nl gait and stance Extremities: normal pulses Neurological: WAFER FABRICATION OPERATOR II-XII intact, nl mental status, nl speech, nl strength Results Result Diagram: 08/29/18 0435 08/29/18 0435 AKIN COLEMAN MD August 29, 2018 09:59
[2018-08-29] MEDS ORDERED: FUROSEMIDE 20 MG INJ IV ONE (10:00)
[2018-08-29] MEDS ORDERED: HYDROmorphONE 0.5 MG/0.5 ML SYG IV PRN (10:30)
[2018-08-29] MEDS ORDERED: HYDROmorphONE 1 MG/ML SYG IV PRN (10:30)
[2018-08-29] MEDS: LIDOCAINE 5% PATCH TD SCH ×2 (14:12→19:55)
[2018-08-29] MEDS ORDERED: GLUCOSE GEL 15 GRAM TUBE PO PRN ×2 (15:30)
[2018-08-29] MEDS ORDERED: GLUCAGON 1 MG INJ IM PRN (15:30)
[2018-08-29] MEDS ORDERED: GLUCOSE GEL 15 GRAM TUBE BUCCAL PRN (15:30)
[2018-08-29] MEDS: morphine 4 MG/ML VIAL IV PRN (17:10)
--- NOTE | 2018-08-29 17:45 | RADRPT ---
Vent Rate: 97 bpm RR Interval: 620 msec AK Interval: 134 msec QRS Duration: 75 msec QT Interval: 346 msec QTC Interval: 439 msec P-R-T Baker: 31 - 2 - 57 degrees Sinus rhythm...normal P axis, V-rate 50- 99 Low voltage, precordial leads...precordial leads <1.0mV Electronically Signed By: Alvin Mcneill
[2018-08-29] MEDS: ATORVASTATIN 80 MG TAB PO SCH (20:44)
[2018-08-29] MEDS ORDERED: ALBUMIN HUMAN 5% 500 ML IV ONE (22:00)
[2018-08-30] VITALS (30 sets, daily range): BP systolic 99–142; BP diastolic 55–88; PULSE 67–88; RESP 9–25
[2018-08-30] MEDS: INSULIN ASPART [NOVOLOG] 3 ML PEN SC SCH ×6 (01:00→20:58)
[2018-08-30] MEDS: OXYCODONE/ACETAMINOPHEN (5/325) TAB PO PRN ×3 (01:25→08:41)
[2018-08-30] MEDS: POTASSIUM CHLORIDE 40 MEQ, CALCIUM CHLORIDE 10% 1 GM in DEXTROSE 5%-0.225% NACL 1,000 ML IV SCH ×2 (02:32→10:27)
[2018-08-30] MEDS: PANTOPRAZOLE SODIUM 20 MG TABEC PO SCH ×2 (05:27→17:28)
[2018-08-30] MEDS: morphine 2 MG INJ IV PRN ×3 (05:33→21:44)
--- NOTE | 2018-08-30 06:20 | PN ---
Date/Time of Note Date/Time of Note DATE: 08/30/18 TIME: 06:13 Assessment/Plan VTE Prophylaxis Risk score (from Ns)>0 risk: 14 SCD applied (from Ns): Yes Pharmacological prophylaxis: NA/contraindicated Pharm contraindication: surgical contra Lines/Catheters IV [facility] Type [facility]from [facility] Cordis Urinary Cath still in place: Yes Reason Cath still needed: other (indicate) Assessment/Plan Hospital Course S: poor apetite O: Constitutional: alert, frail; No distress Psych: no complaints Head: normocephalic Eyes: PERRL; No icteric Respiratory: diminished breath sounds, other (wound vac mid chest, multiple chest tubes); No crackles/rales, No labored breathing Cardiovascular: regular rate and rhythm Gastrointestinal: soft, bowel sounds Extremities: No edema Neurological: lethargic, No focal weakness assessment and plan: 67-year-old female with a history of hypertension, type 2 diabetes, dyslipidemia, gastritis who presented to ER complaining of chest pain currently managed as follows: 1. Unstable angina/chest pain now with known multivessel coronary artery disease -No further chest pain -Status post Abnormal stress test August 25, 2018 and then subsequent angiogram August 26, 2018 that showed multivessel coronary artery disease including significant ostial LAD disease as well as right coronary artery disease. -Coronary artery bypass surgery 08/28/18 with chest drains 2. Diabetes mellitus type 2: -Hemoglobin A1c was 5.9, but patient was on metformin therapy prior to admission. -d/c insuin gtt -Prediabetes? 3. Dyslipidemia with low HDL -Patient has been started on high-dose statin therapy for coronary artery disease 4. Hypertension: Patient is having good control on EARLENE inhibitor and beta- regi -Patient on twice daily PPI therapy 5. Chronic gastritis: -Patient on twice daily PPI 6. CLEMENCIA: improved 7. 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 Disposition: -add diet supplements -IV iron infusion as hgb is dropping -Patient still having good amount of output from chest tube drains -Start heparin for DVT prophylaxis when cleared by surgery -continue ICU until cleared by CTS -Continue physical therapy -Family updated in detail about care plan CRITICAL CARE TIME: >35 mins of which more than half was spent at the bedside and during counselling Result Diagram: 08/30/18 0425 08/30/18 0425 Results 24hrs Laboratory Tests Test 08/29/18 08:11 08/29/18 10:02 08/29/18 12:12 08/29/18 14:08 Bedside Glucose 132 142 136 129 Test 08/29/18 14:10 08/29/18 17:50 08/29/18 20:45 08/30/18 01:10 Sodium Level 143 Potassium Level 4.2 Chloride Level 107 Carbon Dioxide Level 25 Anion Gap 11 Blood Urea Nitrogen 21 H Creatinine 1.11 H Est Glomerular 49 L Filtrat Rate mL/min Glucose Level 140 Calcium Level 9.1 Bedside Glucose 159 145 127 Test 08/30/18 04:25 08/30/18 05:18 White Blood Count 7.4 Red Blood Count 2.96 #L Hemoglobin 8.1 #L Hematocrit 26.5 #L Mean Corpuscular 89.5 Volume Mean Corpuscular 27.4 L Hemoglobin Mean Corpuscular 30.6 L Hemoglobin Concent Red Cell 13.5 Distribution Width Platelet Count 113 #L Mean Platelet Volume 11.9 H Immature 0.300 Granulocytes % Neutrophils % 70.7 Lymphocytes % 23.1 Monocytes % 5.5 Eosinophils % 0.1 Basophils % 0.3 Nucleated Red Blood 0.0 Cells % Immature 0.020 Granulocytes # Neutrophils # 5.3 Lymphocytes # 1.7 Monocytes # 0.4 Eosinophils # 0.0 Basophils # 0.0 Nucleated Red Blood 0.0 Cells # Sodium Level 141 Potassium Level 4.4 Chloride Level 106 Carbon Dioxide Level 27 Anion Gap 8 Blood Urea Nitrogen 21 H Creatinine 0.84 Est Glomerular > 60 Filtrat Rate mL/min Glucose Level 131 Calcium Level 9.0 Magnesium Level 2.4 Total Bilirubin 0.6 Direct Bilirubin 0.00 Indirect Bilirubin 0.6 Aspartate Amino 22 Transf (AST/SGOT) Alanine 22 Aminotransferase (AL T/SGPT) Alkaline Phosphatase 38 L Total Protein 6.1 Albumin 3.7 Globulin 2.40 Albumin/Globulin 1.54 Ratio Bedside Glucose 159 Exam/Review of Systems Exam Vitals Vital Signs Date Temp Pulse Resp B/P (MAP) Pulse Ox O2 O2 Flow FiO2 Time Delivery Rate 08/30/18 86 21 110/68 99 Nasal 4.0 06:00 (82) Cannula 08/30/18 98.6 04:00 08/30/18 27 03:14 Intake and Output 5/08/29/18 08/30/18 1515:00 23:00 07:00 IntakeIntake Total 1054 ml 860 ml 80 ml OutputOutput Total 529 ml 435 ml 415 ml BalanceBalance 525 ml 425 ml -335 ml Results Results 24hrs Laboratory Tests Test 08/29/18 08:11 08/29/18 10:02 08/29/18 12:12 08/29/18 14:08 Bedside Glucose 132 142 136 129 Test 08/29/18 14:10 08/29/18 17:50 08/29/18 20:45 08/30/18 01:10 Sodium Level 143 Potassium Level 4.2 Chloride Level 107 Carbon Dioxide Level 25 Anion Gap 11 Blood Urea Nitrogen 21 H Creatinine 1.11 H Est Glomerular 49 L Filtrat Rate mL/min Glucose Level 140 Calcium Level 9.1 Bedside Glucose 159 145 127 Test 08/30/18 04:25 08/30/18 05:18 White Blood Count 7.4 Red Blood Count 2.96 #L Hemoglobin 8.1 #L Hematocrit 26.5 #L Mean Corpuscular 89.5 Volume Mean Corpuscular 27.4 L Hemoglobin Mean Corpuscular 30.6 L Hemoglobin Concent Red Cell 13.5 Distribution Width Platelet Count 113 #L Mean Platelet Volume 11.9 H Immature 0.300 Granulocytes % Neutrophils % 70.7 Lymphocytes % 23.1 Monocytes % 5.5 Eosinophils % 0.1 Basophils % 0.3 Nucleated Red Blood 0.0 Cells % Immature 0.020 Granulocytes # Neutrophils # 5.3 Lymphocytes # 1.7 Monocytes # 0.4 Eosinophils # 0.0 Basophils # 0.0 Nucleated Red Blood 0.0 Cells # Sodium Level 141 Potassium Level 4.4 Chloride Level 106 Carbon Dioxide Level 27 Anion Gap 8 Blood Urea Nitrogen 21 H Creatinine 0.84 Est Glomerular > 60 Filtrat Rate mL/min Glucose Level 131 Calcium Level 9.0 Magnesium Level 2.4 Total Bilirubin 0.6 Direct Bilirubin 0.00 Indirect Bilirubin 0.6 Aspartate Amino 22 Transf (AST/SGOT) Alanine 22 Aminotransferase (AL T/SGPT) Alkaline Phosphatase 38 L Total Protein 6.1 Albumin 3.7 Globulin 2.40 Albumin/Globulin 1.54 Ratio Bedside Glucose 159 Medications Medication Current Medications IV Flush (NS 3 ml) 3 ml PER PROTOCOL IV ; Start 08/24/18 at 23:00 Ondansetron HCl (Zofran Inj) 4 mg Q6H PRN IV NAUSEA/VOMITING Last administered on 08/29/18 08:21; Admin Dose 4 MG; Start 08/24/18 at 23:00 Nitroglycerin (Nitroglycerin (Sl Tab) 0.4 Mg) 1 tab Q5M PRN SL .CHEST PAIN; Start 08/24/18 at 23:00 Albuterol/ Ipratropium (Duoneb) 3 ml Q2H RESP THERAPY PRN HHN SHORTNESS OF BREATH; Start 08/24/18 at 23:00 Lisinopril (Zestril) 10 mg DAILY PO Last administered on 08/27/18 09:13; Admin Dose 10 MG; Start 08/25/18 at 09:00; Status Hold Pantoprazole Sodium (Protonix) 20 mg BID@0600,1800 PO Last administered on 08/30/18 05:27; Admin Dose 20 MG; Start 08/25/18 at 06:00 Atorvastatin Calcium (Lipitor) 80 mg HS PO Last administered on 08/29/18at 20:44; Admin Dose 80 MG; Start 08/25/18 at 21:00 Nitroglycerin/ Dextrose 250 ml @ 1.5 mls/hr PER PROTOCOL IV Last administered on 08/28/18 15:09; Admin Dose 0.45 MLS/HR; Start 08/28/18 at 15:00 Dopamine HCl/ Dextrose 250 ml @ 5.535 mls/ hr PER PROTOCOL IV Last administered on 08/28/18 15:09; Admin Dose 2.768 MLS/HR; Start 08/28/18 at 15:00 Potassium Chloride 40 meq/ Calcium Chloride 1 gm/Dextrose/ Sodium Chloride 1,030 ml @ 60 mls/hr [id number] IV Last administered on 08/28/18 18:42; Admin Dose 60 MLS/HR; Start 08/28/18 at 16:12 Oxycodone/ Acetaminophen (Percocet (5/ 325)) 1 tab Q3H PRN PO PAIN LEVEL 1-5 Last administered on 08/30/18 01:25; Admin Dose 1 TAB; Start 08/28/18 at 16:30 Oxycodone/ Acetaminophen (Percocet (5/ 325)) 2 tab Q3H PRN PO PAIN LEVEL 6-10 Last administered on 5/16/19at 04:28; Admin Dose 2 TAB; Start 08/28/18 at 16:30 Ondansetron HCl (Zofran Inj) 2 mg ONCE PRN IV NAUSEA AND/OR VOMITING; Start 08/28/18 at 16:30 Aspirin (Aspirin) 325 mg DAILY PO Last administered on 08/29/18at 09:34; Admin Dose 325 MG; Start 08/29/18 at 09:00 Insulin Aspart (Novolog Insulin Pen) NOVOLOG *MODERATE* ALGORI... Q4 SC Last administered on 08/30/18at 05:20; Admin Dose 2 UNIT; Start 08/28/18 at 17:00 Acetaminophen (Tylenol Tab) 650 mg Q3H PRN PO ELEVATED TEMPERATURE Last administered on 08/29/18at 08:08; Admin Dose 650 MG; Start 08/28/18 at 16:30 Acetaminophen (Tylenol Supp) 650 mg Q3H PRN ID ELEVATED TEMPERATURE; Start 08/15 08/03 at 16:30 Potassium Chloride 50 ml @ 50 mls/hr SEE DIRECTION PRN IVPB K+ LEVEL Last administered on 08/28/18at 18:45; Admin Dose 50 MLS/HR; Start 08/28/18 at 16:30 Magnesium Sulfate/ Dextrose 100 ml @ 100 mls/hr PRN PRN IVPB PENDING LAB VALUE; Start 08/28/18 at 16:30 Albumin Human 250 ml @ 250 mls/hr PRN PRN IV CVP <8, CI <2.0 Last administered on 08/29/18at 06:44; Admin Dose 250 MLS/HR; Start 08/29/18 at 06:30 Metoprolol Succinate (Toprol Xl) 12.5 mg BID PO ; Start 08/29/18 at 09:00 Miscellaneous Information 1 ea NOTE XX ; Start 08/29/18 at 15:30 Glucose (Glutose) 15 gm Q15M PRN PO DECREASED GLUCOSE; Start 08/29/18 at 15:30 Glucose (Glutose) 22.5 gm Q15M PRN PO DECREASED GLUCOSE; Start 08/29/18 at 15:30 Dextrose (D50w Syringe) 25 ml Q15M PRN IV DECREASED GLUCOSE; Start 08/29/18 at 15:30 Dextrose (D50w Syringe) 50 ml Q15M PRN IV DECREASED GLUCOSE; Start 08/29/18 at 15:30 Glucagon (Glucagen) 1 mg Q15M PRN IM DECREASED GLUCOSE; Start 08/29/18 at 15:30 Glucose (Glutose) 15 gm Q15M PRN BUCCAL DECREASED GLUCOSE; Start 08/29/18 at 15:30 Morphine Sulfate (morphine) 2 mg Q4H PRN IV MOD PAIN (4-6) Last administered on 08/30/18at 05:33; Admin Dose 2 MG; Start 08/29/18 at 15:30 Morphine Sulfate (morphine) 4 mg Q4H PRN IV SEVERE PAIN LEVEL 7-10 Last administered on 08/29/18at 17:10; Admin Dose 4 MG; Start 08/29/18 at 15:30 Lidocaine (Lidoderm) 2 patch DAILY TD Last administered on 08/29/18at 19:55; Admin Dose 2 PATCH; Start 08/29/18 at 20:00 JODI GONZAELZ August 30, 2018 06:20
--- NOTE | 2018-08-30 07:37 | PN ---
DATE: 08/28/2018 Subjective: Patient is assessed in the ICU postoperative CABG. She has multiple chest drains, family at bedside, patient quite lethargic and in a lot of pain as expected. Patient adequately medicated by nursing staff. Objective: Vital signs: Temperature 98.2 pulse is 108 respirations 15 blood pressure 103/60 saturations 100% on oxygen via nasal cannula. Constitutional: alert, frail; No distress Psych: no complaints Head: normocephalic Eyes: PERRL; No icteric Respiratory: diminished breath sounds, other (wound vac mid chest, multiple chest tubes); No crackles/rales, No labored breathing Cardiovascular: regular rate and rhythm Gastrointestinal: soft, bowel sounds Extremities: No edema Neurological: lethargic, No focal weakness Laboratory values and imaging reviewed Assessment and plan: 67-year-old female with a history of hypertension, type 2 diabetes, dyslipidemia, gastritis who presented to ER complaining of chest pain currently managed as follows: 1. Unstable angina/chest pain now with known multivessel coronary artery disease -No further chest pain -Status post Abnormal stress test August 25, 2018 and then subsequent angiogram August 26, 2018 that showed multivessel coronary artery disease including significant ostial LAD disease as well as right coronary artery disease. -Status post coronary artery bypass surgery earlier today 2. Diabetes mellitus type 2: -Hemoglobin A1c was 5.9, but patient was on metformin therapy prior to admission. -Prediabetes? 3. Dyslipidemia with low HDL -Patient has been started on high-dose statin therapy for coronary artery disease 4. Hypertension: Patient is having good control on EARLENE inhibito and beta- regi r chronic gastritis: -Patient on twice daily PPI therapy 5. Chronic gastritis: -Patient on twice daily PPI 6. Patient is Christian but had consented to blood transfusion prior to surgery Disposition: -Continue ICU supportive care Postoperatively -Continue insulin drip -Continue gentle hydration -Continue pain control and supportive care -Continue all other meds Care time greater than 30 minutes Dictated By: JODI GONZALEZ MD BA/NTS Conf#: [id number] DID#: [id number] MTDD
[2018-08-30] MEDS: ASPIRIN 325 MG TAB PO SCH (08:36)
[2018-08-30] MEDS: METOPROLOL (XL) 25 MG TAB PO SCH ×2 (08:37→20:55)
[2018-08-30] MEDS: LIDOCAINE 5% PATCH TD SCH (08:40)
--- NOTE | 2018-08-30 08:45 | CONS ---
Consult Date/Type/Reason Admit Date/Time August 27, 2018 at 09:46 Initial Consult Date 08/25/18 Type of Consultation: cv Requesting Provider: JORGE A ALLEN MD Date/Time of Note DATE: 08/30/18 TIME: 08:41 Subjective interventional cardiology follow-up progress note Subjective: Discussed with the staff and multiple physicians. tele was reviewed pt remains in NSR s/p CABG 08/28 pt is still in ICU She has less chest wall pain no palpitations Objective: General: no acute distress HEENT: NC/AT. pupils are equal. round. NECK: S/P R IJ catheter . no stridor. chest: Status post sternotomy with chest tubes in place CV: RRR. systolic murmur; no gallop or rubs. PULM: no wheezing or rhonchi. CHEST S/P sternotomy. s/p multiple chest tube in place GI: SOFT, NT, ND, no rebound or guarding Extremity: trace B/L LE edema. no clubbing. neuro: awake and alert, OX3. Psych: calm and pleasant rectal: deferred Vascular: Right femoral no bleeding or hematoma. No bruit Echocardiogram was personally reviewed which shows: Normal left ventricular systolic function. Normal left ventricular cavity size. Ejection fraction is visually estimated at 60 %. Tissue Doppler/Mitral Doppler indices are consistent with impaired relaxation (Stage I diastolic dysfunction). E/E'= 9. Normal appearance and function of the mitral valve with trace physiologic regurgitation. No significant aortic stenosis or insufficiency. Aortic cusps appear mildly calcified. Trileaflet aortic valve. Normal appearance and function of the tricuspid valve with trace physiologic regurgitation. Estimated peak PA systolic pressure 27 mmHg. CXR . Interval extubation. 2. Stable postsurgical changes of a CABG. 3. Mild bibasilar atelectasis. 4. Multiple support lines tubes as described. Objective Vitals Vital Signs Date Temp Pulse Resp B/P (MAP) Pulse Ox O2 O2 Flow FiO2 Time Delivery Rate 08/30/18 86 21 110/68 99 Nasal 4.0 06:00 (82) Cannula 08/30/18 98.6 04:00 08/30/18 27 03:14 Intake and Output 08/29/18 08/29/18 08/30/18 1515:00 23:00 07:00 IntakeIntake Total 1054 ml 860 ml 120 ml OutputOutput Total 529 ml 435 ml 415 ml BalanceBalance 525 ml 425 ml -295 ml Results/Medications Result Diagram: 08/30/18 0425 08/30/18 0425 Results 24 hrs Laboratory Tests Test 08/29/18 10:02 08/29/18 12:12 08/29/18 14:08 08/29/18 14:10 Bedside Glucose 142 136 129 Sodium Level 143 Potassium Level 4.2 Chloride Level 107 Carbon Dioxide Level 25 Anion Gap 11 Blood Urea Nitrogen 21 H Creatinine 1.11 H Est Glomerular 49 L Filtrat Rate mL/min Glucose Level 140 Calcium Level 9.1 Test 08/29/18 17:50 08/29/18 20:45 08/30/18 01:10 08/30/18 04:25 Bedside Glucose 159 145 127 White Blood Count 7.4 Red Blood Count 2.96 #L Hemoglobin 8.1 #L Hematocrit 26.5 #L Mean Corpuscular 89.5 Volume Mean Corpuscular 27.4 L Hemoglobin Mean Corpuscular 30.6 L Hemoglobin Concent Red Cell 13.5 Distribution Width Platelet Count 113 #L Mean Platelet Volume 11.9 H Immature 0.300 Granulocytes % Neutrophils % 70.7 Lymphocytes % 23.1 Monocytes % 5.5 Eosinophils % 0.1 Basophils % 0.3 Nucleated Red Blood 0.0 Cells % Immature 0.020 Granulocytes # Neutrophils # 5.3 Lymphocytes # 1.7 Monocytes # 0.4 Eosinophils # 0.0 Basophils # 0.0 Nucleated Red Blood 0.0 Cells # Sodium Level 141 Potassium Level 4.4 Chloride Level 106 Carbon Dioxide Level 27 Anion Gap 8 Blood Urea Nitrogen 21 H Creatinine 0.84 Est Glomerular > 60 Filtrat Rate mL/min Glucose Level 131 Calcium Level 9.0 Magnesium Level 2.4 Total Bilirubin 0.6 Direct Bilirubin 0.00 Indirect Bilirubin 0.6 Aspartate Amino 22 Transf (AST/SGOT) Alanine 22 Aminotransferase (AL T/SGPT) Alkaline Phosphatase 38 L Total Protein 6.1 Albumin 3.7 Globulin 2.40 Albumin/Globulin 1.54 Ratio Test 08/30/18 05:18 Bedside Glucose 159 Home Meds Reported Medications Pantoprazole* (Pantoprazole*) 20 Mg Tablet.dr, 20 MG PO BID, TAB 08/24/18 Lisinopril* (Lisinopril*) 10 Mg Tablet, 10 MG PO DAILY, #30 TAB 08/24/18 Medications Current Medications IV Flush (NS 3 ml) 3 ml PER PROTOCOL IV ; Start 08/24/18 at 23:00 Ondansetron HCl (Zofran Inj) 4 mg Q6H PRN IV NAUSEA/VOMITING Last administered on 08/29/18at 08:21; Admin Dose 4 MG; Start 08/24/18 at 23:00 Nitroglycerin (Nitroglycerin (Sl Tab) 0.4 Mg) 1 tab Q5M PRN SL .CHEST PAIN; Start 08/24/18 at 23:00 Albuterol/ Ipratropium (Duoneb) 3 ml Q2H RESP THERAPY PRN HHN SHORTNESS OF BREATH; Start 08/24/18 at 23:00 Lisinopril (Zestril) 10 mg DAILY PO Last administered on 08/27/18at 09:13; Admin Dose 10 MG; Start 08/25/18 at 09:00; Status Hold Pantoprazole Sodium (Protonix) 20 mg BID@0600,1800 PO Last administered on at 05:27; Admin Dose 20 MG; Start 08/25/18 at 06:00 Atorvastatin Calcium (Lipitor) 80 mg HS PO Last administered on 08/29/18at 20:44; Admin Dose 80 MG; Start 08/25/18 at 21:00 Nitroglycerin/ Dextrose 250 ml @ 1.5 mls/hr PER PROTOCOL IV Last administered on 08/28/18 15:09; Admin Dose 0.45 MLS/HR; Start 08/28/18 at 15:00 Dopamine HCl/ Dextrose 250 ml @ 5.535 mls/ hr PER PROTOCOL IV Last a dministered on 08/28/18 15:09; Admin Dose 2.768 MLS/HR; Start 08/28/18 at 15:00 Potassium Chloride 40 meq/ Calcium Chloride 1 gm/Dextrose/ Sodium Chloride 1,030 ml @ 60 mls/hr [id number] IV Last administered on 08/28/18at 18:42; Admin Dose 60 MLS/HR; Start 08/28/18 at 16:12 Oxycodone/ Acetaminophen (Percocet (5/ 325)) 1 tab Q3H PRN PO PAIN LEVEL 1-5 Last administered on 08/30/18 01:25; Admin Dose 1 TAB; Start 08/28/18 at 16:30 Oxycodone/ Acetaminophen (Percocet (5/ 325)) 2 tab Q3H PRN PO PAIN LEVEL 6-10 Last administered on 08/30/18at 04:28; Admin Dose 2 TAB; Start 08/28/18 at 16:30 Ondansetron HCl (Zofran Inj) 2 mg ONCE PRN IV NAUSEA AND/OR VOMITING; Start 08/28/18 at 16:30 Aspirin (Aspirin) 325 mg DAILY PO Last administered on 08/29/18at 09:34; Admin Dose 325 MG; Start 08/29/18 at 09:00 Insulin Aspart (Novolog Insulin Pen) NOVOLOG *MODERATE* ALGORI... Q4 SC Last administered on 08/30/18at 05:20; Admin Dose 2 UNIT; Start 08/28/18 at 17:00 Acetaminophen (Tylenol Tab) 650 mg Q3H PRN PO ELEVATED TEMPERATURE Last administered on 08/29/18at 08:08; Admin Dose 650 MG; Start 08/28/18 at 16:30 Acetaminophen (Tylenol Supp) 650 mg Q3H PRN DE ELEVATED TEMPERATURE; Start 08/28/18 at 16:30 Potassium Chloride 50 ml @ 50 mls/hr SEE DIRECTION PRN IVPB K+ LEVEL Last administered on 08/28/18at 18:45; Admin Dose 50 MLS/HR; Start 08/28/18 at 16:30 Magnesium Sulfate/ Dextrose 100 ml @ 100 mls/hr PRN PRN IVPB PENDING LAB VALUE; Start 08/28/18 at 16:30 Albumin Human 250 ml @ 250 mls/hr PRN PRN IV CVP <8, CI <2.0 Last administered on 08/29/18at 06:44; Admin Dose 250 MLS/HR; Start 08/29/18 at 06:30 Metoprolol Succinate (Toprol Xl) 12.5 mg BID PO ; Start 08/29/18 at 09:00 Miscellaneous Information 1 ea NOTE XX ; Start 08/29/18 at 15:30 Glucose (Glutose) 15 gm Q15M PRN PO DECREASED GLUCOSE; Start 08/29/18 at 15:30 Glucose (Glutose) 22.5 gm Q15M PRN PO DECREASED GLUCOSE; Start 08/29/18 at 15:30 Dextrose (D50w Syringe) 25 ml Q15M PRN IV DECREASED GLUCOSE; Start 08/29/18 at 15:30 Dextrose (D50w Syringe) 50 ml Q15M PRN IV DECREASED GLUCOSE; Start 08/29/18 at 15:30 Glucagon (Glucagen) 1 mg Q15M PRN IM DECREASED GLUCOSE; Start 08/29/18 at 15:30 Glucose (Glutose) 15 gm Q15M PRN BUCCAL DECREASED GLUCOSE; Start 08/29/18 at 15:30 Morphine Sulfate (morphine) 2 mg Q4H PRN IV MOD PAIN (4-6) Last administered on 08/30/18at 05:33; Admin Dose 2 MG; Start 08/29/18 at 15:30 Morphine Sulfate (morphine) 4 mg Q4H PRN IV SEVERE PAIN LEVEL 7-10 Last administered on 08/29/18at 17:10; Admin Dose 4 MG; Start 08/29/18 at 15:30 Lidocaine (Lidoderm) 2 patch DAILY TD Last administered on 08/29/18at 19:55; Admin Dose 2 PATCH; Start 08/29/18 at 20:00 Assessment/Plan Hospital Course (Demo Recall) 1. ACS: S/P CABG 08/28 2. Hypertension 3. Diabetes 4. Dyslipidemia 5. Abnormal EKG 6. Family history of coronary artery disease 7. Yarsani 8. Postop anemia Recommendations: Continue with current cardiac care. CONT ASA hold lisinopril for now cont toprol xl 12.[address] surgery input is appreciated. post op care and chest tube management as per CT surgery Consider IV iron placement. Thank you for his referral. We will continue following with you FRANKY HUDSON MD [facility] FRANKY HUDSON MD August 30, 2018 08:45
[2018-08-30] MEDS: SOD FERRIC GLUC COMPLX 125 MG in SOD CHLORIDE 0.9% 100 ML IVPB SCH (12:44)
--- NOTE | 2018-08-30 13:17 | PN ---
Date/Time of Note Date/Time of Note DATE: 08/30/18 TIME: 13:16 Assessment/Plan Lines/Catheters IV Catheter Type (from Nrsg): Cordis Gonzalez in Place (from Nrsg): Yes Assessment/Plan Assessment/Plan Status post coronary artery bypass grafting Stable. Hemoglobin stable Will remove pacing wires Subjective 24 Hr Interval Summary Constitutional: improved Pain Control: mild Exam/Review of Systems Vital Signs Vitals Vital Signs Date Temp Pulse Resp B/P (MAP) Pulse Ox O2 O2 Flow FiO2 Time Delivery Rate 08/30/18 78 18 111/83 99 Nasal 4.0 11:00 (92) Cannula 08/30/18 98.8 08:00 08/30/18 27 03:14 Intake and Output 08/29/18 08/29/18 08/30/18 1515:00 23:00 07:00 IntakeIntake Total 1054 ml 860 ml 140 ml OutputOutput Total 529 ml 435 ml 415 ml BalanceBalance 525 ml 425 ml -275 ml Exam Eyes: nl conjunctiva, EOMI, nl lids, nl sclera ENMT: nl external ears & nose, nl lips & teeth, nl nasal mucosa & septum, mucosa pink and moist Neck: supple, non-tender Respiratory: clear to auscultation, normal air movement Cardiovascular: regular rate and rhythm, nl pulses Gastrointestinal: soft, nl liver, spleen, non-tender Musculoskeletal: nl extremities to inspection, nl gait and stance Results Result Diagram: 08/30/18 0425 08/30/18 0425 AKIN COLEMAN MD August 30, 2018 13:17
--- NOTE | 2018-08-30 15:50 | CONS ---
DATE OF ADMISSION: 08/27/2018 DATE OF CONSULTATION: 08/30/2018 TYPE OF CONSULTATION: Nephrology. REASON FOR CONSULTATION: Volume management, acute kidney injury. HISTORY OF PRESENT ILLNESS: This is a 67-year-old female with a past medical history of hypertension , history of gastritis, history of diabetes who presented to [facility] with episod es of chest pain. The patient was followed by veterinary dentist, underwent a cardiac catheterization, was found to have multivessel disease. The patient then was evaluated for bypass surgery, was seen by Darrion Albarado and patient had CABG. PROCEDURE IN DETAIL: The patient was in intensive care unit, was eventually successfully extubated. In terms of patient's renal history, on admission the patient noted to have elevated creatinine of 1. 02 mg/dL. The patient's creatinine has fluctuated during the hospital course. The patient was also noted to be hyponatremic during hospital course, which is mildly improving. There have been no repor ts of any hemoptysis, hematemesis, or hematochezia. Of note, the patient's urinary output has declin ed in the last 6 hours. PAST MEDICAL HISTORY: History of hypertension, history of diabetes. PAST SURGICAL HISTORY: Reviewed. ALLERGIES: TRAMADOL. FAMILY HISTORY: No family history of kidney disease. SOCIAL HISTORY: Does not drink, smoke or do drugs. MEDICATIONS: The patient's medications have been reviewed. REVIEW OF SYSTEMS: A 14-point review of systems conducted. Pertinent positives stated in HPI, other hays negative. PHYSICAL EXAMINATION: VITAL SIGNS: Blood pressure is 111/83, respiration 18, pulse 78, temperature 98.8. HEENT: Head is normocephalic. NECK: Supple. HEART: Regular rate. LUNGS: Show diminished breath sounds at the base. ABDOMEN: Soft, nontender to palpation without rebound or guarding. CHEST: Patient has a noted sternotomy scar. DERMATOLOGIC: No rashes. MUSCULOSKELETAL: No joint effusions. DERMATOLOGIC: No rashes. NEUROLOGIC: No obvious focal deficits. LABORATORY DATA: Reviewed. IMAGING STUDIES: Have been reviewed. ASSESSMENT AND PLAN: This is a 67-year-old female who presents with: 1. Nonoliguric acute kidney injury with unknown baseline creatinine. Etiology of acute kidney injur y is secondary to hemodynamics. Renal function is improved. We will continue current treatment plan s, supportive care, renally dose all meds. Please note patient's EARLENE inhibitor is currently on hold. Agree with holding at this time. Will continue to monitor. If renal function should remain stable , may reintroduce EARLENE inhibitor. 2. Mild hyponatremia, resolved. Continue to encourage free water intake. 3. Anemia, etiology is likely due to postoperative blood loss. Continue to monitor hemoglobin and h ematocrit levels. 4. Mineral bone disorder, monitor calcium and phosphorus level. 5. Coronary artery disease, status post 4-vessel CABG. The patient is currently stable. Continue m edical management. Follow up with cardiology, CT surgery. 6. Hypertension. Continue current blood pressure regimen. 7. Diabetes. Continue current insulin regimen. 8. Dyslipidemia. Continue statin therapy. 9. General debility. Thank you, Dr. Parmar, for this interesting consult. It will be a pleasure to follow patient with you t hrmargieout the hospital course. Dictated By: JENNIFER MOSER DO NR/NTS Conf#: [id number] DID#: [id number] CC: EM SPIVEY MD;*EndCC*
[2018-08-30] MEDS: ONDANSETRON 4 MG INJ IV PRN (17:32)
[2018-08-30] MEDS: ATORVASTATIN 80 MG TAB PO SCH (20:54)
[2018-08-31] VITALS (28 sets, daily range): BP systolic 97–159; BP diastolic 53–128; PULSE 73–92; RESP 12–32
[2018-08-31] MEDS: INSULIN ASPART [NOVOLOG] 3 ML PEN SC SCH ×6 (01:16→21:00)
[2018-08-31] MEDS: morphine 2 MG INJ IV PRN (04:48)
[2018-08-31] MEDS: PANTOPRAZOLE SODIUM 20 MG TABEC PO SCH ×2 (04:58→18:03)
--- NOTE | 2018-08-31 07:54 | PN ---
DATE: 08/30/2018 SUBJECTIVE: The patient is stable, no acute events overnight. No hemoptysis, hematemesis, hematoche teresa. OBJECTIVE: VITAL SIGNS: Blood pressure is 125/63, respiration 14, pulse 78, temperature 99.5. HEENT: Head is normocephalic. NECK: Supple. HEART: Regular rate. LUNGS: Show diminished breath sounds at base. ABDOMEN: Soft, nontender to palpation without rebound or guarding. EXTREMITIES: Negative for clubbing, cyanosis, no edema. DERMATOLOGIC: No rashes. MUSCULOSKELETAL: No joint effusion. NEUROLOGIC: No change in exam. MEDICATIONS: Have been reviewed. LABORATORY DATA: Has been reviewed. ASSESSMENT AND PLAN: 1. Nonoliguric acute kidney injury with a previously normal baseline creatinine. Etiology of acute kidney injury is secondary to hemodynamics. Renal function is improved. Continue current treatment plan, supportive care, renally dose all meds. 2. Mild hypernatremia, resolved. Continue to monitor. Encourage free water intake. 3. Anemia, etiology is likely due to postoperative blood loss. Continue to monitor hemoglobin and h ematocrit levels. 4. Mineral bone disorder, monitor calcium and phosphorus levels. 5. Coronary artery disease, status post 4-vessel CABG. The patient is stable. Continue medical man agement. Follow up with cardiology. 6. Hypertension. Continue current blood pressure regimen. Okay to resume EARLENE inhibitor. 7. Diabetes. Continue current insulin regimen. 8. Dyslipidemia. Continue statin therapy. 9. General debility. Continue physical therapy. Dictated By: JENNIFER MOSER DO NR/NTS Conf#: [id number] DID#: [id number] CC: EM SPIVEY MD;*EndCC*
[2018-08-31] MEDS: METOPROLOL (XL) 25 MG TAB PO SCH ×2 (09:32→20:49)
[2018-08-31] MEDS: ASPIRIN 325 MG TAB PO SCH (09:32)
[2018-08-31] MEDS: LIDOCAINE 5% PATCH TD SCH (09:33)
--- NOTE | 2018-08-31 09:58 | PN ---
Date/Time of Note Date/Time of Note DATE: 08/31/18 TIME: 09:54 Assessment/Plan VTE Prophylaxis Risk score (from Nsg)>0 risk: 15 SCD applied (from Nsg): Yes Lines/Catheters IV Catheter Type (from Nrsg): Cordis Urinary Cath still in place: Yes Assessment/Plan Hospital Course S: poor appetite O: Constitutional: alert, frail; No distress Psych: no complaints Head: normocephalic Eyes: PERRL; No icteric Respiratory: diminished breath sounds, other (wound vac mid chest, multiple chest tubes); No crackles/rales, No labored breathing Cardiovascular: regular rate and rhythm Gastrointestinal: soft, bowel sounds Extremities: No edema Neurological: lethargic, No focal weakness assessment and plan: 67-year-old female with a history of hypertension, type 2 diabetes, dyslipidemia, gastritis who presented to ER complaining of chest pain currently managed as follows: 1. Unstable angina/chest pain now with known multivessel coronary artery disease -No further chest pain -Status post Abnormal stress test August 25, 2018 and then subsequent angiogram August 26, 2018 that showed multivessel coronary artery disease including significant ostial LAD disease as well as right coronary artery disease. -Coronary artery bypass surgery 08/28/18 with chest drains 2. Diabetes mellitus type 2: -Hemoglobin A1c was 5.9, but patient was on metformin therapy prior to admission. -d/c insuin gtt -Prediabetes? 3. Dyslipidemia with low HDL -Patient has been started on high-dose statin therapy for coronary artery disease 4. Hypertension: Patient is having good control on EARLENE inhibitor and beta- regi -Patient on twice daily PPI therapy 5. Chronic gastritis: -Patient on twice daily PPI 6. CLEMENCIA: improved 7. Patient is Hinduism but consented to receiving [facility] Disposition: -Continue IV iron infusion as hgb is dropping -Patient still having good amount of output from chest tube drains -Start heparin for DVT prophylaxis when cleared by surgery -continue ICU until cleared by CTS -Continue physical therapy -Family updated in detail about care plan CRITICAL CARE TIME: >35 mins of which more than half was spent at the bedside and during counselling Result Diagram: 08/31/18 0433 08/31/18 0433 Results 24hrs Laboratory Tests Test 08/30/18 11:30 08/30/18 12:44 08/30/18 17:27 08/30/18 20:53 Urine Color YELLOW Urine Clarity CLEAR Urine pH 6.0 Urine Specific 1.029 [place] Urine Ketones NEGATIVE Urine Nitrite NEGATIVE Urine Bilirubin NEGATIVE Urine Urobilinogen NEGATIVE Urine Leukocyte TRACE A Esterase Urine Microscopic 3 RBC Urine Microscopic 10 H WBC Urine Squamous FEW Epithelial Cells Urine Bacteria FEW A Urine Hemoglobin NEGATIVE Urine Random 147.26 Creatinine Urine Random Sodium < 13 L Urine Glucose NEGATIVE Urine Total Protein 7.0 Bedside Glucose 160 125 189 Test 08/31/18 01:14 08/31/18 04:33 08/31/18 04:52 08/31/18 08:30 Bedside Glucose 143 130 115 White Blood Count 7.8 Red Blood Count 3.00 L Hemoglobin 8.2 L Hematocrit 26.3 L Mean Corpuscular 87.7 Volume Mean Corpuscular 27.3 L Hemoglobin Mean Corpuscular 31.2 L Hemoglobin Concent Red Cell 13.3 Distribution Width Platelet Count 128 L Mean Platelet Volume 12.2 H Immature 0.500 H Granulocytes % Neutrophils % 66.7 Lymphocytes % 26.0 Monocytes % 5.4 Eosinophils % 1.0 Basophils % 0.4 Nucleated Red Blood 0.0 Cells % Immature 0.040 H Granulocytes # Neutrophils # 5.2 Lymphocytes # 2.0 Monocytes # 0.4 Eosinophils # 0.1 Basophils # 0.0 Nucleated Red Blood 0.0 Cells # Sodium Level 139 Potassium Level 4.3 Chloride Level 104 Carbon Dioxide Level 30 Anion Gap 5 Blood Urea Nitrogen 15 Creatinine 0.69 Est Glomerular > 60 Filtrat Rate mL/min Glucose Level 143 Calcium Level 9.0 Magnesium Level 2.4 Exam/Review of Systems Exam Vitals Vital Signs Date Temp Pulse Resp B/P (MAP) Pulse Ox O2 O2 Flow FiO2 Time Delivery Rate 08/31/18 99.1 Nasal 08:00 Cannula 08/31/18 78 08:00 08/31/18 4.0 08:00 08/31/18 16 97 07:00 08/31/18 33 03:45 Intake and Output 08/30/18 08/30/18 08/31/18 1515:00 23:00 07:00 IntakeIntake Total 610 ml 1060 ml 970 ml OutputOutput Total 335 ml 520 ml 1815 ml BalanceBalance 275 ml 540 ml -845 ml Results Results 24hrs Laboratory Tests Test 08/30/18 11:30 08/30/18 12:44 08/30/18 17:27 08/30/18 20:53 Urine Color YELLOW Urine Clarity CLEAR Urine pH 6.0 Urine Specific 1.029 [place] Urine Ketones NEGATIVE Urine Nitrite NEGATIVE Urine Bilirubin NEGATIVE Urine Urobilinogen NEGATIVE Urine Leukocyte TRACE A Esterase Urine Microscopic 3 RBC Urine Microscopic 10 H WBC Urine Squamous FEW Epithelial Cells Urine Bacteria FEW A Urine Hemoglobin NEGATIVE Urine Random 147.26 Creatinine Urine Random Sodium < 13 L Urine Glucose NEGATIVE Urine Total Protein 7.0 Bedside Glucose 160 125 189 Test 08/31/18 01:14 08/31/18 04:33 08/31/18 04:52 08/31/18 08:30 Bedside Glucose 143 130 115 White Blood Count 7.8 Red Blood Count 3.00 L Hemoglobin 8.2 L Hematocrit 26.3 L Mean Corpuscular 87.7 Volume Mean Corpuscular 27.3 L Hemoglobin Mean Corpuscular 31.2 L Hemoglobin Concent Red Cell 13.3 Distribution Width Platelet Count 128 L Mean Platelet Volume 12.2 H Immature 0.500 H Granulocytes % Neutrophils % 66.7 Lymphocytes % 26.0 Monocytes % 5.4 Eosinophils % 1.0 Basophils % 0.4 Nucleated Red Blood 0.0 Cells % Immature 0.040 H Granulocytes # Neutrophils # 5.2 Lymphocytes # 2.0 Monocytes # 0.4 Eosinophils # 0.1 Basophils # 0.0 Nucleated Red Blood 0.0 Cells # Sodium Level 139 Potassium Level 4.3 Chloride Level 104 Carbon Dioxide Level 30 Anion Gap 5 Blood Urea Nitrogen 15 Creatinine 0.69 Est Glomerular > 60 Filtrat Rate mL/min Glucose Level 143 Calcium Level 9.0 Magnesium Level 2.4 Medications Medication Current Medications IV Flush (NS 3 ml) 3 ml PER PROTOCOL IV ; Start 08/24/18 at 23:00 Ondansetron HCl (Zofran Inj) 4 mg Q6H PRN IV NAUSEA/VOMITING Last administered on 08/30/18at 17:32; Admin Dose 4 MG; Start 08/24/18 at 23:00 Nitroglycerin (Nitroglycerin (Sl Tab) 0.4 Mg) 1 tab Q5M PRN SL .CHEST PAIN; Start 08/24/18 at 23:00 Albuterol/ Ipratropium (Duoneb) 3 ml Q2H RESP THERAPY PRN HHN SHORTNESS OF BREATH; Start 08/24/18 at 23:00 Lisinopril (Zestril) 10 mg DAILY PO Last administered on 08/27/18 09:13; Admin Dose 10 MG; Start 08/25/18 at 09:00; Status Hold Pantoprazole Sodium (Protonix) 20 mg BID@0600,1800 PO Last administered on 08/31/18at 04:58; Admin Dose 20 MG; Start 08/25/18 at 06:00 Atorvastatin Calcium (Lipitor) 80 mg HS PO Last administered on 08/30/18at 20:54; Admin Dose 80 MG; Start 08/25/18 at 21:00 Nitroglycerin/ Dextrose 250 ml @ 1.5 mls/hr PER PROTOCOL IV Last administered on 08/28/18at 15:09; Admin Dose 0.45 MLS/HR; Start 08/28/18 at 15:00 Dopamine HCl/ Dextrose 250 ml @ 5.535 mls/ hr PER PROTOCOL IV Last administered on 08/28/18at 15:09; Admin Dose 2.768 MLS/HR; Start 08/28/18 at 15:00 Potassium Chloride 40 meq/ Calcium Chloride 1 gm/Dextrose/ Sodium Chloride 1,030 ml @ 60 mls/hr [id number] IV Last administered on 08/30/18at 10:27; Admin Dose 60 MLS/HR; Start 08/28/18 at 16:12 Oxycodone/ Acetaminophen (Percocet (5/ 325)) 1 tab Q3H PRN PO PAIN LEVEL 1-5 Last administered on 08/30/18at 01:25; Admin Dose 1 TAB; Start 08/28/18 at 16:30 Oxycodone/ Acetaminophen (Percocet (5/ 325)) 2 tab Q3H PRN PO PAIN LEVEL 6-10 Last administered on 08/30/18at 08:41; Admin Dose 2 TAB; Start 08/28/18 at 16:30 Ondansetron HCl (Zofran Inj) 2 mg ONCE PRN IV NAUSEA AND/OR VOMITING; Start 08/28/18 at 16:30 Aspirin (Aspirin) 325 mg DAILY PO Last administered on 08/31/18at 09:32; Admin Dose 325 MG; Start 08/29/18 at 09:00 Insulin Aspart (Novolog Insulin Pen) NOVOLOG *MODERATE* ALGORI... Q4 SC Last administered on 08/31/18at 01:16; Admin Dose 2 UNIT; Start 08/28/18 at 17:00 Acetaminophen (Tylenol Tab) 650 mg Q3H PRN PO ELEVATED TEMPERATURE Last administered on 08/29/18at 08:08; Admin Dose 650 MG; Start 08/28/18 at 16:30 Acetaminophen (Tylenol Supp) 650 mg Q3H PRN [place] ELEVATED TEMPERATURE; Start 08/28/18 at 16:30 Potassium Chloride 50 ml @ 50 mls/hr SEE DIRECTION PRN IVPB K+ LEVEL Last administered on 08/28/18at 18:45; Admin Dose 50 MLS/HR; Start 08/28/18 at 16:30 Magnesium Sulfate/ Dextrose 100 ml @ 100 mls/hr PRN PRN IVPB PENDING LAB VALUE; Start 08/28/18 at 16:30 Albumin Human 250 ml @ 250 mls/hr PRN PRN IV CVP <8, CI <2.0 Last administered on 08/29/18at 06:44; Admin Dose 250 MLS/HR; Start 08/29/18 at 06:30 Metoprolol Succinate (Toprol Xl) 12.5 mg BID PO Last administered on 08/31/18at 09:32; Admin Dose 12.5 MG; Start 08/29/18 at 09:00 Miscellaneous Information 1 ea NOTE XX ; Start 08/29/18 at 15:30 Glucose (Glutose) 15 gm Q15M PRN PO DECREASED GLUCOSE; Start 08/29/18 at 15:30 Glucose (Glutose) 22.5 gm Q15M PRN PO DECREASED GLUCOSE; Start 08/29/18 at 15:30 Dextrose (D50w Syringe) 25 ml Q15M PRN IV DECREASED GLUCOSE; Start 08/29/18 at 15:30 Dextrose (D50w Syringe) 50 ml Q15M PRN IV DECREASED GLUCOSE; Start 08/29/18 at 15:30 Glucagon (Glucagen) 1 mg Q15M PRN IM DECREASED GLUCOSE; Start 08/29/18 at 15:30 Glucose (Glutose) 15 gm Q15M PRN BUCCAL DECREASED GLUCOSE; Start 08/29/18 at 15:30 Morphine Sulfate (morphine) 2 mg Q4H PRN IV MOD PAIN (4-6) Last administered on 08/31/18at 04:48; Admin Dose 2 MG; Start 08/29/18 at 15:30 Morphine Sulfate (morphine) 4 mg Q4H PRN IV SEVERE PAIN LEVEL 7-10 Last administered on 08/29/18at 17:10; Admin Dose 4 MG; Start 08/29/18 at 15:30 Lidocaine (Lidoderm) 2 patch DAILY TD Last administered on 08/31/18at 09:33; Admin Dose 1 PATCH; Start 08/29/18 at 20:00 Ferric Sodium Gluconate Complex 125 mg/Sodium Chloride 100 ml @ 100 mls/hr DAILY@1300 IVPB Last administered on 08/30/18at 12:44; Admin Dose 100 MLS/HR; Start 08/30/18 at 13:00; Stop 09/01/18 at 13:59 JODI GONZALEZ August 31, 2018 09:58
[2018-08-31] MEDS: POTASSIUM CHLORIDE 40 MEQ, CALCIUM CHLORIDE 10% 1 GM in DEXTROSE 5%-0.225% NACL 1,000 ML IV SCH (13:16)
[2018-08-31] MEDS: SOD FERRIC GLUC COMPLX 125 MG in SOD CHLORIDE 0.9% 100 ML IVPB SCH (13:16)
--- NOTE | 2018-08-31 13:42 | CONS ---
Consult Date/Type/Reason Admit Date/Time August 27, 2018 at 09:46 Initial Consult Date 08/25/18 Type of Consultation: cv Requesting Provider: JORGE A ALLEN MD Date/Time of Note DATE: 08/31/18 TIME: 13:41 Subjective interventional cardiology follow-up progress note Subjective: Discussed with the staff and multiple physicians. tele was reviewed pt remains in NSR no bleeding s/p CABG 08/28 pt is still in ICU She has less chest wall pain no palpitations Objective: General: no acute distress HEENT: NC/AT. pupils are equal. round. NECK: S/P R IJ catheter . no stridor. chest: Status post sternotomy with chest tubes in place CV: RRR. systolic murmur; no gallop or rubs. PULM: no wheezing or rhonchi. CHEST S/P sternotomy. s/p multiple chest tube in place GI: SOFT, NT, ND, no rebound or guarding Extremity: trace B/L LE edema. no clubbing. neuro: awake and alert, OX3. Psych: calm and pleasant rectal: deferred Vascular: Right femoral no bleeding or hematoma. No bruit Echocardiogram was personally reviewed which shows: Normal left ventricular systolic function. Normal left ventricular cavity size. Ejection fraction is visually estimated at 60 %. Tissue Doppler/Mitral Doppler indices are consistent with impaired relaxation (Stage I diastolic dysfunction). E/E'= 9. Normal appearance and function of the mitral valve with trace physiologic regurgitation. No significant aortic stenosis or insufficiency. Aortic cusps appear mildly calcified. Trileaflet aortic valve. Normal appearance and function of the tricuspid valve with trace physiologic regurgitation. Estimated peak PA systolic pressure 27 mmHg. CXR . Interval extubation. 2. Stable postsurgical changes of a CABG. 3. Mild bibasilar atelectasis. 4. Multiple support lines tubes as described. Objective Vitals Vital Signs Date Temp Pulse Resp B/P (MAP) Pulse Ox O2 O2 Flow FiO2 Time Delivery Rate 08/31/18 73 12:00 08/31/18 99.4 18 119/67 98 Nasal 4.0 12:00 (84) Cannula 08/31/18 33 03:45 Intake and Output 08/30/18 08/30/18 08/31/18 1515:00 23:00 07:00 IntakeIntake Total 610 ml 1060 ml 990 ml OutputOutput Total 335 ml 520 ml 1815 ml BalanceBalance 275 ml 540 ml -825 ml Results/Medications Result Diagram: 08/31/18 0433 08/31/18 0433 Results 24 hrs Laboratory Tests Test 08/30/18 17:27 08/30/18 20:53 08/31/18 01:14 08/31/18 04:33 Bedside Glucose 125 189 143 White Blood Count 7.8 Red Blood Count 3.00 L Hemoglobin 8.2 L Hematocrit 26.3 L Mean Corpuscular 87.7 Volume Mean Corpuscular 27.3 L Hemoglobin Mean Corpuscular 31.2 L Hemoglobin Concent Red Cell 13.3 Distribution Width Platelet Count 128 L Mean Platelet Volume 12.2 H Immature 0.500 H Granulocytes % Neutrophils % 66.7 Lymphocytes % 26.0 Monocytes % 5.4 Eosinophils % 1.0 Basophils % 0.4 Nucleated Red Blood 0.0 Cells % Immature 0.040 H Granulocytes # Neutrophils # 5.2 Lymphocytes # 2.0 Monocytes # 0.4 Eosinophils # 0.1 Basophils # 0.0 Nucleated Red Blood 0.0 Cells # Sodium Level 139 Potassium Level 4.3 Chloride Level 104 Carbon Dioxide Level 30 Anion Gap 5 Blood Urea Nitrogen 15 Creatinine 0.69 Est Glomerular > 60 Filtrat Rate mL/min Glucose Level 143 Calcium Level 9.0 Magnesium Level 2.4 Test 08/31/18 04:52 08/31/18 08:30 08/31/18 12:50 Bedside Glucose 130 115 120 Home Meds Reported Medications Pantoprazole* (Pantoprazole*) 20 Mg Tablet.dr, 20 MG PO BID, TAB 08/24/18 Lisinopril* (Lisinopril*) 10 Mg Tablet, 10 MG PO DAILY, #30 TAB 08/24/18 Medications Current Medications IV Flush (NS 3 ml) 3 ml PER PROTOCOL IV ; Start 08/24/18 at 23:00 Ondansetron HCl (Zofran Inj) 4 mg Q6H PRN IV NAUSEA/VOMITING Last administered on 08/30/18at 17:32; Admin Dose 4 MG; Start 08/24/18 at 23:00 Nitroglycerin (Nitroglycerin (Sl Tab) 0.4 Mg) 1 tab Q5M PRN SL .CHEST PAIN; Start 08/24/18 at 23:00 Albuterol/ Ipratropium (Duoneb) 3 ml Q2H RESP THERAPY PRN HHN SHORTNESS OF BREATH; Start 08/24/18 at 23:00 Lisinopril (Zestril) 10 mg DAILY PO Last administered on 08/27/18 09:13; Admin Dose 10 MG; Start 08/25/18 at 09:00; Status Hold Pantoprazole Sodium (Protonix) 20 mg BID@0600,1800 PO Last administered on 08/31/18 04:58; Admin Dose 20 MG; Start 08/25/18 at 06:00 Atorvastatin Calcium (Lipitor) 80 mg HS PO Last administered on 08/30/18 20:54; Admin Dose 80 MG; Start 08/25/18 at 21:00 Nitroglycerin/ Dextrose 250 ml @ 1.5 mls/hr PER PROTOCOL IV Last administered on 08/28/18 15:09; Admin Dose 0.45 MLS/HR; Start 08/28/18 at 15:00 Dopamine HCl/ Dextrose 250 ml @ 5.535 mls/ hr PER PROTOCOL IV Last administered on 08/28/18 15:09; Admin Dose 2.768 MLS/HR; Start 08/28/18 at 15:00 Potassium Chloride 40 meq/ Calcium Chloride 1 gm/Dextrose/ Sodium Chloride 1,030 ml @ 60 mls/hr [id number] IV Last administered on 08/31/18 13:16; Admin Dose 60 MLS/HR; Start 08/28/18 at 16:12 Oxycodone/ Acetaminophen (Percocet (5/ 325)) 1 tab Q3H PRN PO PAIN LEVEL 1-[address] administered on 08/30/18 01:25; Admin Dose 1 TAB; Start 08/28/18 at 16:30 Oxycodone/ Acetaminophen (Percocet (5/ 325)) 2 tab Q3H PRN PO PAIN LEVEL 6-10 Last administered on 08/30/18 08:41; Admin Dose 2 TAB; Start 08/28/18 at 16:30 Ondansetron HCl (Zofran Inj) 2 mg ONCE PRN IV NAUSEA AND/OR VOMITING; Start 08/28/18 at 16:30 Aspirin (Aspirin) 325 mg DAILY PO Last administered on 08/31/18 09:32; Admin Dose 325 MG; Start 08/29/18 at 09:00 Insulin Aspart (Novolog Insulin Pen) NOVOLOG *MODERATE* ALGORI... Q4 SC Last administered on 08/31/18at 01:16; Admin Dose 2 UNIT; Start 08/28/18 at 17:00 Acetaminophen (Tylenol Tab) 650 mg Q3H PRN PO ELEVATED TEMPERATURE Last administered on 08/29/18at 08:08; Admin Dose 650 MG; Start 08/28/18 at 16:30 Acetaminophen (Tylenol Supp) 650 mg Q3H PRN [place] ELEVATED TEMPERATURE; Start 08/28/18 at 16:30 Potassium Chloride 50 ml @ 50 mls/hr SEE DIRECTION PRN IVPB K+ LEVEL Last administered on 08/28/18at 18:45; Admin Dose 50 MLS/HR; Start 08/28/18 at 16:30 Magnesium Sulfate/ Dextrose 100 ml @ 100 mls/hr PRN PRN IVPB PENDING LAB VALUE; Start 08/28/18 at 16:30 Albumin Human 250 ml @ 250 mls/hr PRN PRN IV CVP <8, CI <2.0 Last administered on 08/29/18at 06:44; Admin Dose 250 MLS/HR; Start 08/29/18 at 06:30 Metoprolol Succinate (Toprol Xl) 12.5 mg BID PO Last administered on 08/31/18at 09:32; Admin Dose 12.5 MG; Start 08/29/18 at 09:00 Miscellaneous Information 1 ea NOTE XX ; Start 08/29/18 at 15:30 Glucose (Glutose) 15 gm Q15M PRN PO DECREASED GLUCOSE; Start 08/29/18 at 15:30 Glucose (Glutose) 22.5 gm Q15M PRN PO DECREASED GLUCOSE; Start 08/29/18 at 15:30 Dextrose (D50w Syringe) 25 ml Q15M PRN IV DECREASED GLUCOSE; Start 08/29/18 at 15:30 Dextrose (D50w Syringe) 50 ml Q15M PRN IV DECREASED GLUCOSE; Start 08/29/18 at 15:30 Glucagon (Glucagen) 1 mg Q15M PRN IM DECREASED GLUCOSE; Start 08/29/18 at 15:30 Glucose (Glutose) 15 gm Q15M PRN BUCCAL DECREASED GLUCOSE; Start 08/29/18 at 15:30 Morphine Sulfate (morphine) 2 mg Q4H PRN IV MOD PAIN (4-6) Last administered on 08/31/18at 04:48; Admin Dose 2 MG; Start 08/29/18 at 15:30 Morphine Sulfate (morphine) 4 mg Q4H PRN IV SEVERE PAIN LEVEL 7-10 Last administered on 08/29/18 17:10; Admin Dose 4 MG; Start 08/29/18 at 15:30 Lidocaine (Lidoderm) 2 patch DAILY TD Last administered on 08/31/18at 09:33; Admin Dose 1 PATCH; Start 08/29/18 at 20:00 Ferric Sodium Gluconate Complex 125 mg/Sodium Chloride 100 ml @ 100 mls/hr DAILY@1300 IVPB Last administered on 08/31/18 13:16; Admin Dose 100 MLS/HR; Start 08/30/18 at 13:00; Stop 09/01/18 at 13:59 Assessment/Plan Hospital Course (Demo Recall) 1. ACS: S/P CABG 08/28 2. Hypertension 3. Diabetes 4. Dyslipidemia 5. Abnormal EKG 6. Family history of coronary artery disease 7. [employer] 8. Postop anemia Recommendations: Continue with current cardiac care. CONT ASA hold lisinopril for now and resume once BP is better cont toprol xl 12.[address] surgery input is appreciated. post op care and chest tube management as per CT surgery IV iron placement. ? transfer to tele once ok with CT surgery Thank you for his referral. We will continue following with you FRANKY HUDSON MD [facility] FRANKY HUDSON MD August 31, 2018 13:42
--- NOTE | 2018-08-31 16:06 | PN ---
Date/Time of Note Date/Time of Note DATE: 08/31/18 TIME: 16:05 Assessment/Plan Lines/Catheters IV Catheter Type (from Nrsg): Peripheral IV Gonzalez in Place (from Nrsg): Yes Assessment/Plan Assessment/Plan Status post coronary artery bypass grafting Stable postop Hemoglobin stable Hemodynamically stable Pacing wires removed Will continue chest tube suction Advance diet Pulmonary toilet Relation Subjective 24 Hr Interval Summary Constitutional: improved Pain Control: mild Exam/Review of Systems Vital Signs Vitals Vital Signs Date Temp Pulse Resp B/P (MAP) Pulse Ox O2 O2 Flow FiO2 Time Delivery Rate 08/31/18 73 12:00 08/31/18 99.4 18 119/67 98 Nasal 4.0 12:00 (84) Cannula 08/31/18 33 03:45 Intake and Output 08/30/18 08/30/18 08/31/18 1414:59 22:59 06:59 IntakeIntake Total 610 ml 810 ml 1240 ml OutputOutput Total 332 ml 508 ml 1865 ml BalanceBalance 278 ml 302 ml -625 ml Exam Eyes: nl conjunctiva, EOMI, nl lids, nl sclera ENMT: nl external ears & nose, nl lips & teeth, nl nasal mucosa & septum, mucosa pink and moist Neck: supple, non-tender Respiratory: clear to auscultation, normal air movement Cardiovascular: regular rate and rhythm, nl pulses Musculoskeletal: nl extremities to inspection, nl gait and stance Extremities: normal pulses Results Result Diagram: 08/31/18 0433 08/31/18 0433 AKIN COLEMAN MD August 31, 2018 16:06
[2018-08-31] MEDS: ATORVASTATIN 80 MG TAB PO SCH (20:48)
[2018-09-01] VITALS (22 sets, daily range): BP systolic 102–137; BP diastolic 58–77; PULSE 69–86; RESP 17–25
[2018-09-01] MEDS: INSULIN ASPART [NOVOLOG] 3 ML PEN SC SCH ×6 (01:00→20:27)
[2018-09-01] MEDS: morphine 2 MG INJ IV PRN ×2 (02:52→23:55)
[2018-09-01] MEDS: PANTOPRAZOLE SODIUM 20 MG TABEC PO SCH ×2 (06:29→17:50)
--- NOTE | 2018-09-01 08:34 | CONS ---
Assessment/Plan Assessment/Plan Assessment/Plan (Daily) Assessment 1. ACS: S/P CABG 08/28 2. Hypertension 3. Diabetes 4. Dyslipidemia 5. Abnormal EKG 6. Family history of coronary artery disease 7. Orthodox 8. Postop anemia Plan: 1) continue current meds with improved BP control 2) CT monitoring Consultation Date/Type/Reason Admit Date/Time August 27, 2018 at 09:46 Initial Consult Date 08/27/18 Type of Consult Cardiology Requesting Provider: JORGE A ALLEN MD Date/Time of Note DATE: 09/01/18 TIME: 08:33 24 HR Interval Summary Free Text/Dictation incisional pain, no distress Detailed Summary Respiratory: no complaints Cardiovascular: no complaints Musculoskeletal: no complaints Skin: no complaints Neurologic: no complaints Exam/Review of Systems Vital Signs Vitals Vital Signs Date Temp Pulse Resp B/P (MAP) Pulse Ox O2 O2 Flow FiO2 Time Delivery Rate 09/01/18 98.1 73 19 104/60 100 Nasal 3.5 08:00 (75) Cannula 08/31/18 33 03:45 Intake and Output 08/31/18 08/31/18 09/01/18 1515:00 23:00 07:00 IntakeIntake Total 1050 ml 510 ml 50 ml OutputOutput Total 1760 ml 1165 ml 367 ml BalanceBalance -710 ml -655 ml -317 ml Exam Constitutional: frail Head: normocephalic, atraumatic Neck: supple Respiratory: clear to auscultation Cardiovascular: regular rate and rhythm Gastrointestinal: soft Musculoskeletal: nl extremities to inspection Extremities: normal pulses Labs Result Diagram: 09/01/18 0503 09/01/18 0503 Results 24hrs Laboratory Tests Test 08/31/18 12:50 08/31/18 17:35 08/31/18 20:41 09/01/18 00:59 Bedside Glucose 120 166 124 124 Test 09/01/18 05:03 09/01/18 05:58 09/01/18 08:25 White Blood Count 7.8 Red Blood Count 3.12 L Hemoglobin 8.5 L Hematocrit 27.7 L Mean Corpuscular 88.8 Volume Mean Corpuscular 27.2 L Hemoglobin Mean Corpuscular 30.7 L Hemoglobin Concent Red Cell 13.4 Distribution Width Platelet Count 175 # Mean Platelet Volume 11.3 H Immature 0.800 H Granulocytes % Neutrophils % 62.2 Lymphocytes % 29.0 Monocytes % 6.2 Eosinophils % 1.3 Basophils % 0.5 Nucleated Red Blood 0.5 H Cells % Immature 0.060 H Granulocytes # Neutrophils # 4.8 Lymphocytes # 2.3 Monocytes # 0.5 Eosinophils # 0.1 Basophils # 0.0 Nucleated Red Blood 0.0 Cells # Sodium Level 140 Potassium Level 4.0 Chloride Level 106 Carbon Dioxide Level 30 Anion Gap 4 L Blood Urea Nitrogen 15 Creatinine 0.72 Est Glomerular > 60 Filtrat Rate mL/min Glucose Level 118 Calcium Level 8.7 Bedside Glucose 114 112 Medications Medications Current Medications IV Flush (NS 3 ml) 3 ml PER PROTOCOL IV ; Start 08/24/18 at 23:00 Ondansetron HCl (Zofran Inj) 4 mg Q6H PRN IV NAUSEA/VOMITING Last administered on 08/30/18at 17:32; Admin Dose 4 MG; Start 08/24/18 at 23:00 Nitroglycerin (Nitroglycerin (Sl Tab) 0.4 Mg) 1 tab Q5M PRN SL .CHEST PAIN; Start 08/24/18 at 23:00 Albuterol/ Ipratropium (Duoneb) 3 ml Q2H RESP THERAPY PRN HHN SHORTNESS OF BREATH; Start 08/24/18 at 23:00 Lisinopril (Zestril) 10 mg DAILY PO Last administered on 08/27/18at 09:13; Admin Dose 10 MG; Start 08/25/18 at 09:00; Status Hold Pantoprazole Sodium (Protonix) 20 mg BID@0600,1800 PO Last administered on 09/01/18at 06:29; Admin Dose 20 MG; Start 08/25/18 at 06:00 Atorvastatin Calcium (Lipitor) 80 mg HS PO Last administered on 08/31/18at 2 0:48; Admin Dose 80 MG; Start 08/25/18 at 21:00 Nitroglycerin/ Dextrose 250 ml @ 1.5 mls/hr PER PROTOCOL IV Last administered on 08/28/18at 15:09; Admin Dose 0.45 MLS/HR; Start 08/28/18 at 15:00 Dopamine HCl/ Dextrose 250 ml @ 5.535 mls/ hr PER PROTOCOL IV Last administered on 08/28/18at 15:09; Admin Dose 2.768 MLS/HR; Start 08/28/18 at 15:00 Oxycodone/ Acetaminophen (Percocet (5/ 325)) 1 tab Q3H PRN PO PAIN LEVEL 1-5 Last administered on 08/30/18at 01:25; Admin Dose 1 TAB; Start 08/28/18 at 16:30 Oxycodone/ Acetaminophen (Percocet (5/ 325)) 2 tab Q3H PRN PO PAIN LEVEL 6-10 Last administered on 08/30/18at 08:41; Admin Dose 2 TAB; Start 08/28/18 at 16:30 Ondansetron HCl (Zofran Inj) 2 mg ONCE PRN IV NAUSEA AND/OR VOMITING; Start 08/28/18 at 16:30 Aspirin (Aspirin) 325 mg DAILY PO Last administered on 08/31/18at 09:32; Admin Dose 325 MG; Start 08/29/18 at 09:00 Insulin Aspart (Novolog Insulin Pen) NOVOLOG *MODERATE* ALGORI... Q4 SC Last administered on 08/31/18at 17:39; Admin Dose 4 UNIT; Start 08/28/18 at 17:00 Acetaminophen (Tylenol Tab) 650 mg Q3H PRN PO ELEVATED TEMPERATURE Last administered on 08/29/18 08:08; Admin Dose 650 MG; Start 08/28/18 at 16:30 Acetaminophen (Tylenol Supp) 650 mg Q3H PRN ND ELEVATED TEMPERATURE; Start 08/28/18 at 16:30 Potassium Chloride 50 ml @ 50 mls/hr SEE DIRECTION PRN IVPB K+ LEVEL Last administered on 08/28/18 18:45; Admin Dose 50 MLS/HR; Start 08/28/18 at 16:30 Magnesium Sulfate/ Dextrose 100 ml @ 100 mls/hr PRN PRN IVPB PENDING LAB V ALUE; Start 08/28/18 at 16:30 Albumin Human 250 ml @ 250 mls/hr PRN PRN IV CVP <8, CI <2.0 Last administered on 08/29/18at 06:44; Admin Dose 250 MLS/HR; Start 08/29/18 at 06:30 Metoprolol Succinate (Toprol Xl) 12.5 mg BID PO Last administered on 08/31/18 20:49; Admin Dose 12.5 MG; Start 08/29/18 at 09:00 Miscellaneous Information 1 ea NOTE XX ; Start 08/29/18 at 15:30 Glucose (Glutose) 15 gm Q15M PRN PO DECREASED GLUCOSE; Start 08/29/18 at 15:30 Glucose (Glutose) 22.5 gm Q15M PRN PO DECREASED GLUCOSE; Start 08/29/18 at 15:30 Dextrose (D50w Syringe) 25 ml Q15M PRN IV DECREASED GLUCOSE; Start 08/29/18 at 15:30 Dextrose (D50w Syringe) 50 ml Q15M PRN IV DECREASED GLUCOSE; Start 08/29/18 at 15:30 Glucagon (Glucagen) 1 mg Q15M PRN IM DECREASED GLUCOSE; Start 08/29/18 at 15:30 Glucose (Glutose) 15 gm Q15M PRN BUCCAL DECREASED GLUCOSE; Start 08/29/18 at 15:30 Morphine Sulfate (morphine) 2 mg Q4H PRN IV MOD PAIN (4-6) Last administered on 09/01/18at 02:52; Admin Dose 2 MG; Start 08/29/18 at 15:30 Morphine Sulfate (morphine) 4 mg Q4H PRN IV SEVERE PAIN LEVEL 7-10 Last administered on 08/29/18at 17:10; Admin Dose 4 MG; Start 08/29/18 at 15:30 Lidocaine (Lidoderm) 2 patch DAILY TD Last administered on 08/31/18at 09:33; Admin Dose 1 PATCH; Start 08/29/18 at 20:00 Ferric Sodium Gluconate Complex 125 mg/Sodium Chloride 100 ml @ 100 mls/hr DAILY@1300 IVPB Last administered on 08/31/18at 13:16; Admin Dose 100 MLS/HR; Start 08/30/18 at 13:00; Stop 09/01/18 at 13:59 GIOVANA LOZANO MD September 01, 2018 08:34
[2018-09-01] MEDS: ASPIRIN 325 MG TAB PO SCH (08:50)
[2018-09-01] MEDS: METOPROLOL (XL) 25 MG TAB PO SCH ×2 (08:50→20:27)
[2018-09-01] MEDS: LIDOCAINE 5% PATCH TD SCH (08:53)
--- NOTE | 2018-09-01 08:59 | PN ---
DATE: 09/01/2018 SUBJECTIVE: The patient is stable, no events overnight. The patient has adequate urinary output. OBJECTIVE: VITAL SIGNS: Blood pressure is 114/58, respiration 22, pulse 77, temperature 98.8. HEENT: Head is normocephalic. NECK: Supple. HEART: Regular rate. LUNGS: Show diminished breath sounds at base. ABDOMEN: Soft, nontender to palpation without rebound or guarding. EXTREMITIES: Negative for clubbing, cyanosis, no edema. DERMATOLOGIC: No rashes. MUSCULOSKELETAL: No joint effusion. NEUROLOGIC: No change in exam. LABORATORY DATA: Has been reviewed. MEDICATIONS: Have been reviewed. IMAGING STUDIES: Have been reviewed. IMAGING STUDIES: Have been reviewed. ASSESSMENT AND PLAN: 1. Nonoliguric acute kidney injury with previously normal baseline creatinine. Etiology of acute ki dney injury is secondary to hemodynamics. Renal function is improved. Continue current treatment pl ans, supportive care, renally dose of medications. 2. Mild hyponatremia, resolved. Encourage free water intake. 3. Anemia, etiology is likely due to postoperative blood loss. The patient is on IV Ferrlecit. Con tinue to monitor hemoglobin and hematocrit levels. 4. Mineral bone disorder, monitor calcium and phosphorus levels. 5. Coronary artery disease, status post 4-vessel CABG. The patient is stable. Continue medical man agement. Follow up with cardiology. 6. Hypertension. Blood pressure is stable. Continue current blood pressure regimen. 7. Acute heart failure. The patient appears euvolemic. Continue intermittent diuretic therapy as n eeded. 8. Diabetes. Continue current insulin regimen. 9. Dyslipidemia. Continue statin therapy. 10. General debility. Continue physical therapy. Dictated By: JENNIFER MOSER DO NR/NTS Conf#: [id number] DID#: [id number] CC: EM SPIVEY MD;*EndCC*
--- NOTE | 2018-09-01 14:13 | PN ---
Date/Time of Note Date/Time of Note DATE: 09/01/18 TIME: 14:11 Assessment/Plan VTE Prophylaxis Risk score (from [facility])>0 risk: 18 SCD applied (from [facility]): Yes Pharmacological prophylaxis: NA/contraindicated Pharm contraindication: surgical contra Lines/Catheters IV C[facility]ter Type (from [facility]): Peripheral IV Assessment/Plan Hospital Course 67-year-old female with a history of hypertension, type 2 diabetes, dyslipidemia, gastritis who presented to ER complaining of chest pain currently managed as follows: 1. Unstable angina/chest pain now with known multivessel coronary artery disease -No further chest pain -Status post Abnormal stress test August 25, 2018 and then subsequent angiogram August 26, 2018 that showed multivessel coronary artery disease including significant ostial LAD disease as well as right coronary artery disease. -Coronary artery bypass surgery 08/28/[address] with chest drains in place 2. Diabetes mellitus type 2: -Hemoglobin A1c was 5.9, but patient was on metformin therapy prior to admission. -d/c insuin gtt 3. Dyslipidemia with low HDL -Patient has been started on high-dose statin therapy for coronary artery disease 4. Hypertension: Patient is having good control on EARLENE inhibitor and beta- regi -Continue regimen 5. Chronic gastritis: -Patient on twice daily PPI 6. CLEMENCIA: improved 7. Patient is Tenriism but consented to receiving blood prior to surgery Disposition: -Continue IV iron infusion as hgb is dropping -Patient still having good amount of output from chest tube drains -Start heparin for DVT prophylaxis when cleared by surgery -continue ICU until cleared by CTS -Continue physical therapy -Family updated in detail about care plan Result Diagram: 09/01/18 0503 09/01/18 0503 Results 24hrs Laboratory Tests Test 08/31/18 17:35 08/31/18 20:41 09/01/18 00:59 09/01/18 05:03 Bedside Glucose 166 124 124 White Blood Count 7.8 Red Blood Count 3.12 L Hemoglobin 8.5 L Hematocrit 27.7 L Mean Corpuscular 88.8 Volume Mean Corpuscular 27.2 L Hemoglobin Mean Corpuscular 30.7 L Hemoglobin Concent Red Cell 13.4 Distribution Width Platelet Count 175 # Mean Platelet Volume 11.3 H Immature 0.800 H Granulocytes % Neutrophils % 62.2 Lymphocytes % 29.0 Monocytes % 6.2 Eosinophils % 1.3 Basophils % 0.5 Nucleated Red Blood 0.5 H Cells % Immature 0.060 H Granulocytes # Neutrophils # 4.8 Lymphocytes # 2.3 Monocytes # 0.5 Eosinophils # 0.1 Basophils # 0.0 Nucleated Red Blood 0.0 Cells # Sodium Level 140 Potassium Level 4.0 Chloride Level 106 Carbon Dioxide Level 30 Anion Gap 4 L Blood Urea Nitrogen 15 Creatinine 0.72 Est Glomerular > 60 Filtrat Rate mL/min Glucose Level 118 Calcium Level 8.7 Test 09/01/18 05:58 09/01/18 08:25 09/01/18 12:05 Bedside Glucose 114 112 184 Subjective 24 Hr Interval Summary Constitutional: no complaints Exam/Review of Systems Exam Vitals Vital Signs Date Temp Pulse Resp B/P (MAP) Pulse Ox O2 O2 Flow FiO2 Time Delivery Rate 09/01/18 98.1 76 18 126/64 100 Nasal 3.5 14:00 (84) Cannula 08/31/18 33 03:45 Intake and Output 08/31/18 08/31/18 09/01/18 1515:00 23:00 07:00 IntakeIntake Total 1050 ml 510 ml 50 ml OutputOutput Total 1760 ml 1165 ml 367 ml BalanceBalance -710 ml -655 ml -317 ml Constitutional: alert, oriented Respiratory: clear to auscultation Cardiovascular: regular rate and rhythm Gastrointestinal: soft; No distended Musculoskeletal: nl extremities to inspection Results Results 24hrs Laboratory Tests Test 08/31/18 17:35 08/31/18 20:41 09/01/18 00:59 09/01/18 05:03 Bedside Glucose 166 124 124 White Blood Count 7.8 Red Blood Count 3.12 L Hemoglobin 8.5 L Hematocrit 27.7 L Mean Corpuscular 88.8 Volume Mean Corpuscular 27.2 L Hemoglobin Mean Corpuscular 30.7 L Hemoglobin Concent Red Cell 13.4 Distribution Width Platelet Count 175 # Mean Platelet Volume 11.3 H Immature 0.800 H Granulocytes % Neutrophils % 62.2 Lymphocytes % 29.0 Monocytes % 6.2 Eosinophils % 1.3 Basophils % 0.5 Nucleated Red Blood 0.5 H Cells % Immature 0.060 H Granulocytes # Neutrophils # 4.8 Lymphocytes # 2.3 Monocytes # 0.5 Eosinophils # 0.1 Basophils # 0.0 Nucleated Red Blood 0.0 Cells # Sodium Level 140 Potassium Level 4.0 Chloride Level 106 Carbon Dioxide Level 30 Anion Gap 4 L Blood Urea Nitrogen 15 Creatinine 0.72 Est Glomerular > 60 Filtrat Rate mL/min Glucose Level 118 Calcium Level 8.7 Test 09/01/18 05:58 09/01/18 08:25 09/01/18 12:05 Bedside Glucose 114 112 184 Medications Medication Current Medications IV Flush (NS 3 ml) 3 ml PER PROTOCOL IV ; Start 08/24/18 at 23:00 Ondansetron HCl (Zofran Inj) 4 mg Q6H PRN IV NAUSEA/VOMITING Last administered on 08/30/18at 17:32; Admin Dose 4 MG; Start 08/24/18 at 23:00 Nitroglycerin (Nitroglycerin (Sl Tab) 0.4 Mg) 1 tab Q5M PRN SL .CHEST PAIN; Start 08/24/18 at 23:00 Albuterol/ Ipratropium (Duoneb) 3 ml Q2H RESP THERAPY PRN HHN SHORTNESS OF BREATH; Start 08/24/18 at 23:00 Lisinopril (Zestril) 10 mg DAILY PO Last administered on 08/27/18at 09:13; Admin Dose 10 MG; Start 08/25/18 at 09:00; Status Hold Pantoprazole Sodium (Protonix) 20 mg BID@0600,1800 PO Last administered on 09/01/18at 06:29; Admin Dose 20 MG; Start 08/25/18 at 06:00 Atorvastatin Calcium (Lipitor) 80 mg HS PO Last administered on 08/31/18at 20:48; Admin Dose 80 MG; Start 08/25/18 at 21:00 Nitroglycerin/ Dextrose 250 ml @ 1.5 mls/hr PER PROTOCOL IV Last administered on 08/28/18at 15:09; Admin Dose 0.45 MLS/HR; Start 08/28/18 at 15:00 Dopamine HCl/ Dextrose 250 ml @ 5.535 mls/ hr PER PROTOCOL IV Last administered on 08/28/18 15:09; Admin Dose 2.768 MLS/HR; Start 08/28/18 at 15:00 Oxycodone/ Acetaminophen (Percocet (5/ 325)) 1 tab Q3H PRN PO PAIN LEVEL 1-5 Last administered on 08/30/18at 01:25; Admin Dose 1 TAB; Start 08/28/18 at 16:30 Oxycodone/ Acetaminophen (Percocet (5/ 325)) 2 tab Q3H PRN PO PAIN LEVEL 6-10 Last administered on 08/30/18at 08:41; Admin Dose 2 TAB; Start 08/28/18 at 16:30 Ondansetron HCl (Zofran Inj) 2 mg ONCE PRN IV NAUSEA AND/OR VOMITING; Start 08/28/18 at 16:30 Aspirin (Aspirin) 325 mg DAILY PO Last administered on 09/01/18at 08:50; Admin Dose 325 MG; Start 08/29/18 at 09:00 Insulin Aspart (Novolog Insulin Pen) NOVOLOG *MODERATE* ALGORI... Q4 SC Last administered on 09/01/18 12:19; Admin Dose 4 UNIT; Start 08/28/18 at 17:00 Acetaminophen (Tylenol Tab) 650 mg Q3H PRN PO ELEVATED TEMPERATURE Last administered on 08/29/18 08:08; Admin Dose 650 MG; Start 08/28/18 at 16:30 Acetaminophen (Tylenol Supp) 650 mg Q3H PRN [place] ELEVATED TEMPERATURE; Start 08/28/18 at 16:30 Potassium Chloride 50 ml @ 50 mls/hr SEE DIRECTION PRN IVPB K+ LEVEL Last administered on 08/28/18at 18:45; Admin Dose 50 MLS/HR; Start 08/28/18 at 16:30 Magnesium Sulfate/ Dextrose 100 ml @ 100 mls/hr PRN PRN IVPB PENDING LAB VALUE; Start 08/28/18 at 16:30 Albumin Human 250 ml @ 250 mls/hr PRN PRN IV CVP <8, CI <2.0 Last administered on 08/29/18at 06:44; Admin Dose 250 MLS/HR; Start 08/29/18 at 06:30 Metoprolol Succinate (Toprol Xl) 12.5 mg BID PO Last administered on 09/01/18 08:50; Admin Dose 12.5 MG; Start 08/29/18 at 09:00 Miscellaneous Information 1 ea NOTE XX ; Start 08/29/18 at 15:30 Glucose (Glutose) 15 gm Q15M PRN PO DECREASED GLUCOSE; Start 08/29/18 at 15:30 Glucose (Glutose) 22.5 gm Q15M PRN PO DECREASED GLUCOSE; Start 08/29/18 at 15:30 Dextrose (D50w Syringe) 25 ml Q15M PRN IV DECREASED GLUCOSE; Start 08/29/18 at 15:30 Dextrose (D50w Syringe) 50 ml Q15M PRN IV DECREASED GLUCOSE; Start 08/29/18 at 15:30 Glucagon (Glucagen) 1 mg Q15M PRN IM DECREASED GLUCOSE; Start 08/29/18 at 15:30 Glucose (Glutose) 15 gm Q15M PRN BUCCAL DECREASED GLUCOSE; Start 08/29/18 at 15:30 Morphine Sulfate (morphine) 2 mg Q4H PRN IV MOD PAIN (4-6) Last administered on 09/01/18at 02:52; Admin Dose 2 MG; Start 08/29/18 at 15:30 Morphine Sulfate (morphine) 4 mg Q4H PRN IV SEVERE PAIN LEVEL 7-10 Last administered on 08/29/18at 17:10; Admin Dose 4 MG; Start 08/29/18 at 15:30 Lidocaine (Lidoderm) 2 patch DAILY TD Last administered on 09/01/18at 08:53; Admin Dose 2 PATCH; Start 08/29/18 at 20:00 MAXIMO SHAH September 01, 2018 14:13
[2018-09-01] MEDS: SOD FERRIC GLUC COMPLX 125 MG in SOD CHLORIDE 0.9% 100 ML IVPB SCH (15:34)
[2018-09-01] MEDS: ATORVASTATIN 80 MG TAB PO SCH (20:26)
[2018-09-02] VITALS (21 sets, daily range): BP systolic 96–157; BP diastolic 52–102; PULSE 73–91; RESP 15–28
[2018-09-02] MEDS: INSULIN ASPART [NOVOLOG] 3 ML PEN SC SCH ×6 (01:00→21:00)
[2018-09-02] MEDS: PANTOPRAZOLE SODIUM 20 MG TABEC PO SCH ×2 (05:27→18:00)
[2018-09-02] MEDS: morphine 2 MG INJ IV PRN (07:12)
[2018-09-02] MEDS: ALBUTEROL/IPRATROPIUM (NEB) 3 ML AMP HHN PRN (07:47)
[2018-09-02] MEDS ORDERED: POTASSIUM CHLORIDE (SR) 20 MEQ TAB PO STA (07:48)
[2018-09-02] MEDS ORDERED: FUROSEMIDE 20 MG TAB PO ONE (08:00)
[2018-09-02] MEDS: ASPIRIN 325 MG TAB PO SCH (08:14)
[2018-09-02] MEDS: METOPROLOL (XL) 25 MG TAB PO SCH ×2 (08:15→21:23)
[2018-09-02] MEDS: LIDOCAINE 5% PATCH TD SCH (09:00)
--- NOTE | 2018-09-02 10:52 | PN ---
DATE: 09/02/2018 SUBJECTIVE: This morning the patient is noted to be tachypneic. The patient's JVD noted to be eleva carl. No other events noted. No hemoptysis, hematemesis, hematochezia. OBJECTIVE: VITAL SIGNS: Blood pressure is 116/58, respirations 17, pulse 82, temperature 99.2. HEENT: Head is normocephalic. NECK: Supple. HEART: Regular rate. LUNGS: Show diminished breath sounds at the base. ABDOMEN: Soft, nontender to palpation without rebound or guarding. EXTREMITIES: Negative for clubbing, cyanosis, no edema. DERMATOLOGIC: No rashes. MUSCULOSKELETAL: No joint effusion. NEUROLOGIC: No change in exam. MEDICATIONS: The patient's medications have been reviewed. LABORATORY DATA: From 09/02/2018 was reviewed. IMAGING STUDIES: Reviewed. ASSESSMENT AND PLAN: 1. Nonoliguric acute kidney injury with previously normal baseline creatinine. Etiology of CLEMENCIA is s econdary to hemodynamics. Renal function is improved. Continue current treatment plan, supportive c are, renally dose all medication. 2. Hyponatremia, resolved. 3. Hypokalemia. We will replete with potassium chloride. 4. Anemia. Monitor hemoglobin and hematocrit levels. Continue IV Ferrlecit. 5. Mineral bone disorder, monitor calcium and phosphorus levels. 6. Coronary artery disease status post 4-vessel CABG. Continue medical management. 7. Hypertension. Blood pressure controlled. 8. Acute heart failure postop. Patient appears to be mildly decompensated, currently tachypneic. W ill give a course of diuretics, monitor closely. 9. Diabetes. Continue current insulin regimen. 10. Dyslipidemia. Continue statin therapy. 11. General debility. Continue physical therapy. Dictated By: JENNIFER MOSER DO NR/NTS Conf#: [id number] DID#: [id number] CC: MAXIMO SHAH MD; EM SPIVEY MD;*[facility]*
[2018-09-02] MEDS: OXYCODONE/ACETAMINOPHEN (5/325) TAB PO PRN ×3 (10:55→16:07)
--- NOTE | 2018-09-02 12:05 | PN ---
Date/Time of Note Date/Time of Note DATE: 09/02/18 TIME: 12:04 Assessment/Plan [place] [facility] [place]: 17 [place] [facility] [place] Yes Pharmacological prophylaxis: NA/contraindicated Pharm contraindication: surgical contra Assessment/Plan Hospital Course 67-year-old female with a history of hypertension, type 2 diabetes, dyslipidemia, gastritis who presented to ER complaining of chest pain currently managed as follows: 1. Unstable angina/chest pain now with known multivessel coronary artery d isease -No further chest pain -Status post Abnormal stress test August 25, 2018 and then subsequent angiogram August 26, 2018 that showed multivessel coronary artery disease including significant ostial LAD disease as well as right coronary artery disease. -Coronary artery bypass surgery 08/28/18 with chest drains in place 2. Diabetes mellitus type 2: -Hemoglobin A1c was 5.9, but patient was on metformin therapy prior to admission. -Status post insuin gtt 3. Dyslipidemia with low HDL -Patient has been started on high-dose statin therapy for coronary artery disease 4. Hypertension: Patient is having good control on EARLENE inhibitor and beta- regi -Continue regimen 5. Chronic gastritis: -Patient on twice daily PPI 6. CLEMENCIA: improved 7. 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[employer] but consented to receiving blood prior to surgery Disposition: -Continue IV iron infusion as hgb is dropping -Patient still having good amount of output from chest tube drains -Start heparin for DVT prophylaxis when cleared by surgery -Transfer to telemetry -Continue physical therapy -Family updated in detail about care plan Result Diagram: 09/02/18 0450 09/02/18 0450 Results 24hrs Laboratory Tests Test 09/01/18 12:05 09/01/18 17:49 09/01/18 20:25 09/02/18 01:22 Bedside Glucose 184 100 99 111 Test 09/02/18 04:50 09/02/18 04:58 09/02/18 10:53 White Blood Count 7.6 Red Blood Count 3.12 L Hemoglobin 8.7 L Hematocrit 27.7 L Mean Corpuscular 88.8 Volume Mean Corpuscular 27.9 L Hemoglobin Mean Corpuscular 31.4 L Hemoglobin Concent Red Cell 13.3 Distribution Width Platelet Count 205 Mean Platelet Volume 11.3 H Immature 0.800 H Granulocytes % Neutrophils % 59.9 Lymphocytes % 32.1 Monocytes % 4.8 Eosinophils % 1.9 Basophils % 0.5 Nucleated Red Blood 1.5 H Cells % Immature 0.060 H Granulocytes # Neutrophils # 4.5 Lymphocytes # 2.4 Monocytes # 0.4 Eosinophils # 0.1 Basophils # 0.0 Nucleated Red Blood 0.1 H Cells # Sodium Level 139 Potassium Level 3.3 L Chloride Level 108 Carbon Dioxide Level 27 Anion Gap 4 L Blood Urea Nitrogen 16 Creatinine 0.67 Est Glomerular > 60 Filtrat Rate mL/min Glucose Level 89 Calcium Level 8.3 L Bedside Glucose 94 149 Subjective 24 Hr Interval Summary Constitutional: no complaints Exam/Review of Systems Exam Vitals Vital Signs Date Temp Pulse Resp B/P (MAP) Pulse Ox O2 O2 Flow FiO2 Time Delivery Rate 09/02/18 99.1 83 17 121/57 98 Nasal 09:00 (78) Cannula 09/02/18 4.0 08:01 08/31/18 33 03:45 Intake and Output 09/01/18 09/01/18 09/02/18 1515:00 23:00 07:00 IntakeIntake Total 750 ml 765 ml 60 ml OutputOutput Total 1142 ml 1268 ml 308 ml BalanceBalance -392 ml -503 ml -248 ml Constitutional: alert, oriented Respiratory: clear to auscultation Cardiovascular: regular rate and rhythm Gastrointestinal: soft Musculoskeletal: nl extremities to inspection Results Results 24hrs Laboratory Tests Test 09/01/18 12:05 09/01/18 17:49 09/01/18 20:25 09/02/18 01:22 Bedside Glucose 184 100 99 111 Test 09/02/18 04:50 09/02/18 04:58 09/02/18 10:53 White Blood Count 7.6 Red Blood Count 3.12 L Hemoglobin 8.7 L Hematocrit 27.7 L Mean Corpuscular 88.8 Volume Mean Corpuscular 27.9 L Hemoglobin Mean Corpuscular 31.4 L Hemoglobin Concent Red Cell 13.3 Distribution Width Platelet Count 205 Mean Platelet Volume 11.3 H Immature 0.800 H Granulocytes % Neutrophils % 59.9 Lymphocytes % 32.1 Monocytes % 4.8 Eosinophils % 1.9 Basophils % 0.5 Nucleated Red Blood 1.5 H Cells % Immature 0.060 H Granulocytes # Neutrophils # 4.5 Lymphocytes # 2.4 Monocytes # 0.4 Eosinophils # 0.1 Basophils # 0.0 Nucleated Red Blood 0.1 H Cells # Sodium Level 139 Potassium Level 3.3 L Chloride Level 108 Carbon Dioxide Level 27 Anion Gap 4 L Blood Urea Nitrogen 16 Creatinine 0.67 Est Glomerular > 60 Filtrat Rate mL/min Glucose Level 89 Calcium Level 8.3 L Bedside Glucose 94 149 Medications Medication Current Medications IV Flush (NS 3 ml) 3 ml PER PROTOCOL IV ; Start 08/24/18 at 23:00 Ondansetron HCl (Zofran Inj) 4 mg Q6H PRN IV NAUSEA/VOMITING Last administered on 08/30/18 17:32; Admin Dose 4 MG; Start 08/24/18 at 23:00 Nitroglycerin (Nitroglycerin (Sl Tab) 0.4 Mg) 1 tab Q5M PRN SL .CHEST PAIN; Start 08/24/18 at 23:00 Albuterol/ Ipratropium (Duoneb) 3 ml Q2H RESP THERAPY PRN HHN SHORTNESS OF BREATH Last administered on 09/02/18at 07:47; Admin Dose 3 ML; Start 08/24/18 at 23:00 Lisinopril (Zestril) 10 mg DAILY PO Last administered on 08/27/18 09:13; Admin Dose 10 MG; Start 08/25/18 at 09:00; Status Hold Pantoprazole Sodium (Protonix) 20 mg BID@0600,1800 PO Last administered on 09/02/18 05:27; Admin Dose 20 MG; Start 08/25/18 at 06:00 Atorvastatin Calcium (Lipitor) 80 mg HS PO Last administered on 09/01/18 20:26; Admin Dose 80 MG; Start 08/25/18 at 21:00 Oxycodone/ Acetaminophen (Percocet (5/ 325)) 1 tab Q3H PRN PO PAIN LEVEL 1-5 Last administered on 09/02/18 10:55; Admin Dose 1 TAB; Start 08/28/18 at 16:30 Oxycodone/ Acetaminophen (Percocet (5/ 325)) 2 tab Q3H PRN PO PAIN LEVEL 6-10 Last administered on 08/30/18 08:41; Admin Dose 2 TAB; Start 08/28/18 at 16:30 Ondansetron HCl (Zofran Inj) 2 mg ONCE PRN IV NAUSEA AND/OR VOMITING; Start 08/28/18 at 16:30 Aspirin (Aspirin) 325 mg DAILY PO Last administered on 09/02/18at 08:14; Admin Dose 325 MG; Start 08/29/18 at 09:00 Insulin Aspart (Novolog Insulin Pen) NOVOLOG *MODERATE* ALGORI... Q4 SC Last administered on 09/02/18at 10:55; Admin Dose 2 UNIT; Start 08/28/18 at 17:00 Acetaminophen (Tylenol Tab) 650 mg Q3H PRN PO ELEVATED TEMPERATURE Last administered on 08/29/18at 08:08; Admin Dose 650 MG; Start 08/28/18 at 16:30 Acetaminophen (Tylenol Supp) 650 mg Q3H PRN [place] ELEVATED TEMPERATURE; Start 08/28/18 at 16:30 Potassium Chloride 50 ml @ 50 mls/hr SEE DIRECTION PRN IVPB K+ LEVEL Last administered on 08/28/18at 18:45; Admin Dose 50 MLS/HR; Start 08/28/18 at 16:30 Magnesium Sulfate/ Dextrose 100 ml @ 100 mls/hr PRN PRN IVPB PENDING LAB VALUE; Start 08/28/18 at 16:30 Albumin Human 250 ml @ 250 mls/hr PRN PRN IV CVP <8, CI <2.0 Last administered on 08/29/18at 06:44; Admin Dose 250 MLS/HR; Start 08/29/18 at 06:30 Metoprolol Succinate (Toprol Xl) 12.5 mg BID PO Last administered on 09/02/18at 08:15; Admin Dose 12.5 MG; Start 08/29/18 at 09:00 Miscellaneous Information 1 ea NOTE XX ; Start 08/29/18 at 15:30 Glucose (Glutose) 15 gm Q15M PRN PO DECREASED GLUCOSE; Start 08/29/18 at 15:30 Glucose (Glutose) 22.5 gm Q15M PRN PO DECREASED GLUCOSE; Start 08/29/18 at 15:30 Dextrose (D50w Syringe) 25 ml Q15M PRN IV DECREASED GLUCOSE; Start 08/29/18 at 15:30 Dextrose (D50w Syringe) 50 ml Q15M PRN IV DECREASED GLUCOSE; Start 08/29/18 at 15:30 Glucagon (Glucagen) 1 mg Q15M PRN IM DECREASED GLUCOSE; Start 08/29/18 at 15:30 Glucose (Glutose) 15 gm Q15M PRN BUCCAL DECREASED GLUCOSE; Start 08/29/18 at 15:30 Morphine Sulfate (morphine) 2 mg Q4H PRN IV MOD PAIN (4-6) Last administered on 09/02/18 07:12; Admin Dose 2 MG; Start 08/29/18 at 15:30 Morphine Sulfate (morphine) 4 mg Q4H PRN IV SEVERE PAIN LEVEL 7-10 Last administered on 08/29/18 17:10; Admin Dose 4 MG; Start 08/29/18 at 15:30 Lidocaine (Lidoderm) 2 patch DAILY TD Last administered on 09/01/18at 08:53; Admin Dose 2 PATCH; Start 08/29/18 at 20:00 MAXIMO SHAH September 02, 2018 12:05
--- NOTE | 2018-09-02 18:42 | PN ---
Date/Time of Note Date/Time of Note DATE: 09/02/18 TIME: 18:41 Assessment/Plan Assessment/Plan Assessment/Plan Status post coronary artery bypass grafting Stable postop Will DC chest tubes See Cordis Ambulation Discharge planning Subjective 24 Hr Interval Summary Constitutional: improved Pain Control: mild Exam/Review of Systems Vital Signs Vitals Vital Signs Date Temp Pulse Resp B/P (MAP) Pulse Ox O2 O2 Flow FiO2 Time Delivery Rate 09/02/18 98.3 84 18 138/86 96 Nasal 2.0 18:32 (103) Cannula 08/31/18 33 03:45 Intake and Output 09/01/18 09/01/18 09/02/18 1515:00 23:00 07:00 IntakeIntake Total 750 ml 765 ml 140 ml OutputOutput Total 1142 ml 1268 ml 358 ml BalanceBalance -392 ml -503 ml -218 ml Exam Eyes: nl conjunctiva, EOMI, nl lids, nl sclera ENMT: nl external ears & nose, nl lips & teeth, nl nasal mucosa & septum, mucosa pink and moist Neck: supple, non-tender Respiratory: clear to auscultation, normal air movement Cardiovascular: regular rate and rhythm, nl pulses Gastrointestinal: soft, nl liver, spleen, non-tender Results Result Diagram: 09/02/18 04509/02/18 045 AKIN COLEMAN MD September 02, 2018 18:42
[2018-09-02] MEDS: ATORVASTATIN 80 MG TAB PO SCH (21:23)
[2018-09-03] VITALS (11 sets, daily range): BP systolic 119–134; BP diastolic 59–78; PULSE 78–98; RESP 18
[2018-09-03] MEDS: INSULIN ASPART [NOVOLOG] 3 ML PEN SC SCH ×5 (01:00→20:52)
[2018-09-03] MEDS: PANTOPRAZOLE SODIUM 20 MG TABEC PO SCH ×2 (05:55→17:17)
[2018-09-03] MEDS: ALBUTEROL/IPRATROPIUM (NEB) 3 ML AMP HHN PRN (06:05)
[2018-09-03] MEDS: morphine 2 MG INJ IV PRN (06:24)
[2018-09-03] MEDS: ASPIRIN 325 MG TAB PO SCH (08:31)
[2018-09-03] MEDS: LIDOCAINE 5% PATCH TD SCH (08:32)
[2018-09-03] MEDS: METOPROLOL (XL) 25 MG TAB PO SCH ×2 (08:35→20:52)
--- NOTE | 2018-09-03 11:56 | PN ---
Date/Time of Note Date/Time of Note DATE: 09/03/18 TIME: 11:54 Assessment/Plan VTE Prophylaxis Risk score (from [facility] [place]0 risk: 8 SCD applied (from [facility] [place]): Yes Pharmacological prophylaxis: NA/contraindicated Pharm contraindication: low risk/ambulating Assessment/Plan Hospital Course 67-year-old female with a history of hypertension, type 2 diabetes, dyslipidemia, gastritis who presented to ER complaining of chest pain currently managed as follows: 1. Unstable angina/chest pain now with known multivessel coronary artery disease -No further chest pain -Status post Abnormal stress test August 25, 2018 and then subsequent angiogram August 26, 2018 that showed multivessel coronary artery disease including significant ostial LAD disease as well as right coronary artery disease. -Coronary artery bypass surgery 08/28/18, chest tubes now removed -Patient with reports of shortness of breath, monitor off supplemental O2, provide O2 if indicated 2. Diabetes mellitus type 2: -Hemoglobin A1c was 5.9, but patient was on metformin therapy prior to admission. -Status post insuin gtt 3. Dyslipidemia with low HDL -Patient has been started on high-dose statin therapy for coronary artery disease 4. Hypertension: Patient is having good control on EARLENE inhibitor and beta- regi -Continue regimen 5. Chronic gastritis: -Patient on twice daily PPI 6. 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 DC planning: Follow-up with CT surgery recommendations, anticipate DC home later today or tomorrow Result Diagram: 09/03/18 0531 09/03/18 0531 Results 24hrs Laboratory Tests Test 09/02/18 14:26 09/02/18 17:56 09/02/18 21:21 09/03/18 05:31 Bedside Glucose 135 112 128 White Blood Count 8.6 Red Blood Count 3.73 L Hemoglobin 10.3 L Hematocrit 32.6 L Mean Corpuscular 87.4 Volume Mean Corpuscular 27.6 L Hemoglobin Mean Corpuscular 31.6 L Hemoglobin Concent Red Cell 13.4 Distribution Width Platelet Count 292 # Mean Platelet Volume 10.8 H Immature 1.700 H Granulocytes % Neutrophils % 62.9 Lymphocytes % 27.4 Monocytes % 5.1 Eosinophils % 2.3 Basophils % 0.6 Nucleated Red Blood 0.8 H Cells % Immature 0.150 H Granulocytes # Neutrophils # 5.4 Lymphocytes # 2.4 Monocytes # 0.4 Eosinophils # 0.2 Basophils # 0.1 Nucleated Red Blood 0.1 H Cells # Sodium Level 140 Potassium Level 4.1 Chloride Level 105 Carbon Dioxide Level 26 Anion Gap 9 # Blood Urea Nitrogen 13 Creatinine 0.72 Est Glomerular > 60 Filtrat Rate mL/min Glucose Level 131 # Calcium Level 9.1 Phosphorus Level 3.3 Magnesium Level 2.1 Test 09/03/18 05:53 09/03/18 08:33 Bedside Glucose 136 133 Subjective 24 Hr Interval Summary Respiratory: shortness of breath Exam/Review of Systems Exam Vitals Vital Signs Date Temp Pulse Resp B/P (MAP) Pulse Ox O2 O2 Flow FiO2 Time Delivery Rate 09/03/18 93 Room Air 10:30 09/03/18 88 08:11 09/03/18 2.0 08:00 09/03/18 98.0 18 124/60 07:18 (81) 08/31/18 33 03:45 Intake and Output 09/02/18 09/02/18 09/03/18 1515:00 23:00 07:00 IntakeIntake Total 200 ml 300 ml 500 ml OutputOutput Total 295 ml 113 ml 700 ml BalanceBalance -95 ml 187 ml -200 ml Constitutional: alert, oriented Respiratory: clear to auscultation Cardiovascular: regular rate and rhythm Gastrointestinal: soft; No distended Musculoskeletal: nl extremities to inspection Results Results 24hrs Laboratory Tests Test 09/02/18 14:26 09/02/18 17:56 09/02/18 21:21 09/03/18 05:31 Bedside Glucose 135 112 128 White Blood Count 8.6 Red Blood Count 3.73 L Hemoglobin 10.3 L Hematocrit 32.6 L Mean Corpuscular 87.4 Volume Mean Corpuscular 27.6 L Hemoglobin Mean Corpuscular 31.6 L Hemoglobin Concent Red Cell 13.4 Distribution Width Platelet Count 292 # Mean Platelet Volume 10.8 H Immature 1.700 H Granulocytes % Neutrophils % 62.9 Lymphocytes % 27.4 Monocytes % 5.1 Eosinophils % 2.3 Basophils % 0.6 Nucleated Red Blood 0.8 H Cells % Immature 0.150 H Granulocytes # Neutrophils # 5.4 Lymphocytes # 2.4 Monocytes # 0.4 Eosinophils # 0.2 Basophils # 0.1 Nucleated Red Blood 0.1 H Cells # Sodium Level 140 Potassium Level 4.1 Chloride Level 105 Carbon Dioxide Level 26 Anion Gap 9 # Blood Urea Nitrogen 13 Creatinine 0.72 Est Glomerular > 60 Filtrat Rate mL/min Glucose Level 131 # Calcium Level 9.1 Phosphorus Level 3.3 Magnesium Level 2.1 Test 09/03/18 05:53 09/03/18 08:33 Bedside Glucose 136 133 Medications Medication Current Medications IV Flush (NS 3 ml) 3 ml PER PROTOCOL IV ; Start 08/24/18 at 23:00 Ondansetron HCl (Zofran Inj) 4 mg Q6H PRN IV NAUSEA/VOMITING Last administered on 08/30/18 17:32; Admin Dose 4 MG; Start 08/24/18 at 23:00 Nitroglycerin (Nitroglycerin (Sl Tab) 0.4 Mg) 1 tab Q5M PRN SL .CHEST PAIN; Start 08/24/18 at 23:00 Albuterol/ Ipratropium (Duoneb) 3 ml Q2H RESP THERAPY PRN HHN SHORTNESS OF BREATH Last administered on 09/03/18at 06:05; Admin Dose 3 ML; Start 08/24/18 at 23:00 Lisinopril (Zestril) 10 mg DAILY PO Last administered on 08/27/18at 09:13; Admin Dose 10 MG; Start 08/25/18 at 09:00; Status Hold Pantoprazole Sodium (Protonix) 20 mg BID@0600,1800 PO Last administered on 09/03/18at 05:55; Admin Dose 20 MG; Start 08/25/18 at 06:00 Atorvastatin Calcium (Lipitor) 80 mg HS PO Last administered on 09/02/18at 21:23; Admin Dose 80 MG; Start 08/25/18 at 21:00 Oxycodone/ Acetaminophen (Percocet (5/ 325)) 1 tab Q3H PRN PO PAIN LEVEL 1-5 Last administered on 09/02/18at 14:32; Admin Dose 1 TAB; Start 08/28/18 at 16:30 Oxycodone/ Acetaminophen (Percocet (5/ 325)) 2 tab Q3H PRN PO PAIN LEVEL 6-10 Last administered on 09/02/18at 16:07; Admin Dose 2 TAB; Start 08/28/18 at 16:30 Ondansetron HCl (Zofran Inj) 2 mg ONCE PRN IV NAUSEA AND/OR VOMITING; Start 08/28/18 at 16:30 Aspirin (Aspirin) 325 mg DAILY PO Last administered on 09/03/18at 08:31; Admin Dose 325 MG; Start 08/29/18 at 09:00 Acetaminophen (Tylenol Tab) 650 mg Q3H PRN PO ELEVATED TEMPERATURE Last administered on 08/29/18at 08:08; Admin Dose 650 MG; Start 08/28/18 at 16:30 Acetaminophen (Tylenol Supp) 650 mg Q3H PRN [place] ELEVATED TEMPERATURE; Start 08/28/18 at 16:30 Potassium Chloride 50 ml @ 50 mls/hr SEE DIRECTION PRN IVPB K+ LEVEL Last administered on 08/28/18at 18:45; Admin Dose 50 MLS/HR; Start 08/28/18 at 16:30 Magnesium Sulfate/ Dextrose 100 ml @ 100 mls/hr PRN PRN IVPB PENDING LAB VALUE; Start 08/28/18 at 16:30 Albumin Human 250 ml @ 250 mls/hr PRN PRN IV CVP <8, CI <2.0 Last administered on 08/29/18at 06:44; Admin Dose 250 MLS/HR; Start 08/29/18 at 06:30 Metoprolol Succinate (Toprol Xl) 12.5 mg BID PO Last administered on 09/03/18at 08:35; Admin Dose 12.5 MG; Start 08/29/18 at 09:00 Miscellaneous Information 1 ea NOTE XX ; Start 08/29/18 at 15:30 Glucose (Glutose) 15 gm Q15M PRN PO DECREASED GLUCOSE; Start 08/29/18 at 15:30 Glucose (Glutose) 22.5 gm Q15M PRN PO DECREASED GLUCOSE; Start 08/29/18 at 15: 30 Dextrose (D50w Syringe) 25 ml Q15M PRN IV DECREASED GLUCOSE; Start 08/29/18 at 15:30 Dextrose (D50w Syringe) 50 ml Q15M PRN IV DECREASED GLUCOSE; Start 08/29/18 at 15:30 Glucagon (Glucagen) 1 mg Q15M PRN IM DECREASED GLUCOSE; Start 08/29/18 at 15:30 Glucose (Glutose) 15 gm Q15M PRN BUCCAL DECREASED GLUCOSE; Start 08/29/18 at 15:30 Morphine Sulfate (morphine) 2 mg Q4H PRN IV MOD PAIN (4-6) Last administered on 09/03/18at 06:24; Admin Dose 2 MG; Start 08/29/18 at 15:30 Morphine Sulfate (morphine) 4 mg Q4H PRN IV SEVERE PAIN LEVEL 7-10 Last administered on 08/29/18at 17:10; Admin Dose 4 MG; Start 08/29/18 at 15:30 Lidocaine (Lidoderm) 2 patch DAILY TD Last administered on 09/03/18at 08:32; Admin Dose 2 PATCH; Start 08/29/18 at 20:00 Insulin Aspart (Novolog Insulin Pen) NOVOLOG *MODERATE* ALGORI... AC MEALS AND BEDTIME SC ; Start 09/03/18 at 17:25; Status MAXIMO CAMPBELL September 03, 2018 11:56
[2018-09-03] MEDS ORDERED: POLYETHYLENE GLYCOL 17 GM PACKET PO ONE (12:30)
[2018-09-03] MEDS ORDERED: SENNA TAB PO ONE (12:30)
--- NOTE | 2018-09-03 16:17 | PN ---
DATE: 09/03/2018 SUBJECTIVE: The patient is stable. No events overnight. No fevers, chills, nausea, vomiting. OBJECTIVE: VITAL SIGNS: Blood pressure 127/78, respiration 18, pulse 98, temperature 98.0. HEENT: Head is normocephalic. NECK: Supple. HEART: Regular rate. LUNGS: Show diminished breath sounds at base. ABDOMEN: Soft, nontender to palpation. No rebound or guarding. EXTREMITIES: Negative for clubbing, cyanosis. No edema. DERMATOLOGIC: No rashes. MUSCULOSKELETAL: No joint effusions. NEUROLOGIC: No change in exam. MEDICATIONS: Have been reviewed. LABORATORY DATA: Have been reviewed. ASSESSMENT AND PLAN: 1. Nonoliguric acute kidney injury with previous unknown baseline creatinine. Etiology is secondary to hemodynamics. Renal function is improved. Continue to monitor. 2. Anemia. Monitor hemoglobin and hematocrit levels. 3. Mineral bone disorder. Monitor calcium and phosphatase levels. 4. Coronary artery disease, status post 4-vessel CABG. Continue medical management. 5. Hypertension. Continue current blood pressure regimen. 6. Acute heart failure. The patient appears compensated. Continue to monitor. Continue medical ma nagement. 7. Diabetes. Continue current insulin regimen. 8. Dyslipidemia. Continue statin therapy. 9. General debility. We will sign off. Please reconsult as needed. Dictated By: JENNIFER MOSER DO NR/NTS Conf#: [id number] DID#: [id number] CC: MAXIMO SHAH MD; EM SPIVEY MD;*EndCC*
--- NOTE | 2018-09-03 19:21 | CONS ---
Consult Date/Type/Reason Admit Date/Time August 27, 2018 at 09:46 Initial Consult Date 08/25/18 Type of Consultation: cv Requesting Provider: JORGE A ALLEN MD Date/Time of Note DATE: 09/03/18 TIME: 19:15 Subjective interventional cardiology follow-up progress note Subjective: Discussed with the staff and tele was reviewed pt remains in NSR no bleeding Patient has a lot less chest wall tenderness. No palpitations s/p CABG 08/28 Objective: General: no acute distress HEENT: NC/AT. pupils are equal. round. NECK: S/P R IJ catheter . no stridor. chest: Status post sternotomy with chest tubes in place CV: RRR. systolic murmur; no gallop or rubs. PULM: no wheezing or rhonchi. CHEST S/P sternotomy. GI: SOFT, NT, ND, no rebound or guarding Extremity: trace B/L LE edema. no clubbing. neuro: awake and alert, OX3. Psych: calm and pleasant rectal: deferred Vascular: Right femoral no bleeding or hematoma. No bruit Echocardiogram was personally reviewed which shows: Normal left ventricular systolic function. Normal left ventricular cavity size. Ejection fraction is visually estimated at 60 %. Tissue Doppler/Mitral Doppler indices are consistent with impaired relaxation (Stage I diastolic dysfunction). E/E'= 9. Normal appearance and function of the mitral valve with trace physiologic regurgitation. No significant aortic stenosis or insufficiency. Aortic cusps appear mildly calcified. Trileaflet aortic valve. Normal appearance and function of the tricuspid valve with trace physiologic regurgitation. Estimated peak PA systolic pressure 27 mmHg. CXR . Interval extubation. 2. Stable postsurgical changes of a CABG. 3. Mild bibasilar atelectasis. 4. Multiple support lines tubes as described. Objective Vitals Vital Signs Date Temp Pulse Resp B/P (MAP) Pulse Ox O2 O2 Flow FiO2 Time Delivery Rate 09/03/18 98.0 98 18 119/59 98 17:32 (79) 09/03/18 Room Air 10:30 09/03/18 2.0 08:00 08/31/18 33 03:45 Intake and Output 09/02/18 09/02/18 09/03/18 1515:00 23:00 07:00 IntakeIntake Total 200 ml 300 ml 500 ml OutputOutput Total 295 ml 113 ml 700 ml BalanceBalance -95 ml 187 ml -200 ml Results/Medications Result Diagram: 09/03/18 0531 09/03/18 0531 Results 24 hrs Laboratory Tests Test 09/02/18 21:21 09/03/18 05:31 09/03/18 05:53 09/03/18 08:33 Bedside Glucose 128 136 133 White Blood Count 8.6 Red Blood Count 3.73 L Hemoglobin 10.3 L Hematocrit 32.6 L Mean Corpuscular 87.4 Volume Mean Corpuscular 27.6 L Hemoglobin Mean Corpuscular 31.6 L Hemoglobin Concent Red Cell 13.4 Distribution Width Platelet Count 292 # Mean Platelet Volume 10.8 H Immature 1.700 H Granulocytes % Neutrophils % 62.9 Lymphocytes % 27.4 Monocytes % 5.1 Eosinophils % 2.3 Basophils % 0.6 Nucleated Red Blood 0.8 H Cells % Immature 0.150 H Granulocytes # Neutrophils # 5.4 Lymphocytes # 2.4 Monocytes # 0.4 Eosinophils # 0.2 Basophils # 0.1 Nucleated Red Blood 0.1 H Cells # Sodium Level 140 Potassium Level 4.1 Chloride Level 105 Carbon Dioxide Level 26 Anion Gap 9 # Blood Urea Nitrogen 13 Creatinine 0.72 Est Glomerular > 60 Filtrat Rate mL/min Glucose Level 131 # Calcium Level 9.1 Phosphorus Level 3.3 Magnesium Level 2.1 Test 09/03/18 12:28 09/03/18 17:16 Bedside Glucose 134 141 Home Meds Reported Medications Pantoprazole* (Pantoprazole*) 20 Mg Tablet.dr, 20 MG PO BID, TAB 08/24/18 Lisinopril* (Lisinopril*) 10 Mg Tablet, 10 MG PO DAILY, #30 TAB 08/24/18 Medications Current Medications IV Flush (NS 3 ml) 3 ml PER PROTOCOL IV ; Start 08/24/18 at 23:00 Ondansetron HCl (Zofran Inj) 4 mg Q6H PRN IV NAUSEA/VOMITING Last administered on 08/30/18at 17:32; Admin Dose 4 MG; Start 08/24/18 at 23:00 Nitroglycerin (Nitroglycerin (Sl Tab) 0.4 Mg) 1 tab Q5M PRN SL .CHEST PAIN; Start 08/24/18 at 23:00 Albuterol/ Ipratropium (Duoneb) 3 ml Q2H RESP THERAPY PRN HHN SHORTNESS OF BREATH Last administered on 09/03/18 06:05; Admin Dose 3 ML; Start 08/24/18 at 23:00 Lisinopril (Zestril) 10 mg DAILY PO Last administered on 08/27/18 09:13; Admin Dose 10 MG; Start 08/25/18 at 09:00; Status Hold Pantoprazole Sodium (Protonix) 20 mg BID@0600,1800 PO Last administered on 09/03/18 17:17; Admin Dose 20 MG; Start 08/25/18 at 06:00 Atorvastatin Calcium (Lipitor) 80 mg HS PO Last administered on 09/02/18 21:23; Admin Dose 80 MG; Start 08/25/18 at 21:00 Oxycodone/ Acetaminophen (Percocet (5/ 325)) 1 tab Q3H PRN PO PAIN LEVEL 1-5 Last administered on 09/02/18at 14:32; Admin Dose 1 TAB; Start 08/28/18 at 16:30 Oxycodone/ Acetaminophen (Percocet (5/ 325)) 2 tab Q3H PRN PO PAIN LEVEL 6-10 Last administered on 09/02/18 16:07; Admin Dose 2 TAB; Start 08/28/18 at 16:30 Ondansetron HCl (Zofran Inj) 2 mg ONCE PRN IV NAUSEA AND/OR VOMITING; Start 08/28/18 at 16:30 Aspirin (Aspirin) 325 mg DAILY PO Last administered on 09/03/18at 08:31; Admin Dose 325 MG; Start 08/29/18 at 09:00 Acetaminophen (Tylenol Tab) 650 mg Q3H PRN PO ELEVATED TEMPERATURE Last administered on 08/29/18 08:08; Admin Dose 650 MG; Start 08/28/18 at 16:30 Acetaminophen (Tylenol Supp) 650 mg Q3H PRN [place] ELEVATED TEMPERATURE; Start 08/28/18 at 16:30 Potassium Chloride 50 ml @ 50 mls/hr SEE DIRECTION PRN IVPB K+ LEVEL Last ad ministered on 08/28/18at 18:45; Admin Dose 50 MLS/HR; Start 08/28/18 at 16:30 Magnesium Sulfate/ Dextrose 100 ml @ 100 mls/hr PRN PRN IVPB PENDING LAB VALUE; Start 08/28/18 at 16:30 Albumin Human 250 ml @ 250 mls/hr PRN PRN IV CVP <8, CI <2.0 Last administered on 08/29/18at 06:44; Admin Dose 250 MLS/HR; Start 08/29/18 at 06:30 Metoprolol Succinate (Toprol Xl) 12.5 mg BID PO Last administered on 09/03/18at 08:35; Admin Dose 12.5 MG; Start 08/29/18 at 09:00 Miscellaneous Information 1 ea NOTE XX ; Start 08/29/18 at 15:30 Glucose (Glutose) 15 gm Q15M PRN PO DECREASED GLUCOSE; Start 08/29/18 at 15:30 Glucose (Glutose) 22.5 gm Q15M PRN PO DECREASED GLUCOSE; Start 08/29/18 at 15:30 Dextrose (D50w Syringe) 25 ml Q15M PRN IV DECREASED GLUCOSE; Start 08/29/18 at 15:30 Dextrose (D50w Syringe) 50 ml Q15M PRN IV DECREASED GLUCOSE; Start 08/29/18 at 15:30 Glucagon (Glucagen) 1 mg Q15M PRN IM DECREASED GLUCOSE; Start 08/29/18 at 15:30 Glucose (Glutose) 15 gm Q15M PRN BUCCAL DECREASED GLUCOSE; Start 08/29/18 at 15:30 Morphine Sulfate (morphine) 2 mg Q4H PRN IV MOD PAIN (4-6) Last administered on 09/03/18at 06:24; Admin Dose 2 MG; Start 08/29/18 at 15:30 Morphine Sulfate (morphine) 4 mg Q4H PRN IV SEVERE PAIN LEVEL 7-10 Last administered on 08/29/18at 17:10; Admin Dose 4 MG; Start 08/29/18 at 15:30 Lidocaine (Lidoderm) 2 patch DAILY TD Last administered on 09/03/18at 08:32; Admin Dose 2 PATCH; Start 08/29/18 at 20:00 Insulin Aspart (Novolog Insulin Pen) NOVOLOG *MODERATE* ALGORI... AC MEALS AND BEDTIME SC Last administered on 09/03/18at 17:52; Admin Dose 2 UNIT; Start 09/03/18 at 17:25 Docusate Sodium (Colace) 100 mg BID PO ; Start 5/20/19 at 21:00 Assessment/Plan Hospital Course (Demo Recall) 1. ACS: S/P CABG 08/28 2. Hypertension 3. Diabetes 4. Dyslipidemia 5. Abnormal EKG 6. Family history of coronary artery disease 7. Yazidi 8. Postop anemia Recommendations: Continue with current cardiac care. CONT ASA Increase toprol xl 25 bid Resume low-dose lisinopril CT surgery input is appreciated. Thank you for his referral. We will continue following with you FRANKY HUDSON MD [facility] FRANKY HUDSON MD September 03, 2018 19:21
--- NOTE | 2018-09-03 20:09 | PN ---
Date/Time of Note Date/Time of Note DATE: 09/03/18 TIME: 20:08 Assessment/Plan Lines/Catheters IV Catheter Type (from Nrsg): Peripheral IV Assessment/Plan Assessment/Plan Status post coronary artery bypass grafting All lines have been removed Patient is tolerating diet Ambulating well Start discharge planning Subjective 24 Hr Interval Summary Constitutional: no complaints, improved, ambulates, BM, flatus, urine output Pain Control: mild Exam/Review of Systems Vital Signs Vitals Vital Signs Date Temp Pulse Resp B/P (MAP) Pulse Ox O2 O2 Flow FiO2 Time Delivery Rate 09/03/18 98.6 89 18 123/60 95 19:37 (81) 09/03/18 Room Air 10:30 09/03/18 2.0 08:00 08/31/18 33 03:45 Intake and Output 09/02/18 09/02/18 09/03/18 1515:00 23:00 07:00 IntakeIntake Total 200 ml 300 ml 500 ml OutputOutput Total 295 ml 113 ml 700 ml BalanceBalance -95 ml 187 ml -200 ml Exam ENMT: nl external ears & nose, nl lips & teeth, nl nasal mucosa & septum, mucosa pink and moist Neck: supple, non-tender Respiratory: clear to auscultation, normal air movement Cardiovascular: regular rate and rhythm, nl pulses Gastrointestinal: soft, nl liver, spleen, non-tender Musculoskeletal: nl extremities to inspection, nl gait and stance Results Result Diagram: 09/03/18 0531 09/03/18 0531 AKIN COLEMAN MD September 03, 2018 20:09
[2018-09-03] MEDS: DOCUSATE SODIUM 100 MG CAP PO SCH (20:51)
[2018-09-03] MEDS: ATORVASTATIN 80 MG TAB PO SCH (20:51)
[2018-09-03] MEDS ORDERED: ALPRAZOLAM 1 MG TAB PO PRN (22:00)
[2018-09-03] MEDS: morphine 4 MG/ML VIAL IV PRN (22:02)
[2018-09-04] VITALS (8 sets, daily range): BP systolic 102–114; BP diastolic 55–70; PULSE 78–92; RESP 18
[2018-09-04] MEDS ORDERED: ALPRAZOLAM 1 MG TAB PO PRN (03:00)
[2018-09-04] MEDS: PANTOPRAZOLE SODIUM 20 MG TABEC PO SCH ×2 (06:59→18:00)
[2018-09-04] MEDS: INSULIN ASPART [NOVOLOG] 3 ML PEN SC SCH ×3 (07:25→17:25)
[2018-09-04] MEDS: ASPIRIN 325 MG TAB PO SCH (08:29)
[2018-09-04] MEDS: DOCUSATE SODIUM 100 MG CAP PO SCH (08:31)
[2018-09-04] MEDS: LIDOCAINE 5% PATCH TD SCH (08:31)
[2018-09-04] MEDS: METOPROLOL (XL) 25 MG TAB PO SCH (08:31)
[2018-09-04] MEDS ORDERED: LISINOPRIL 5 MG TAB PO SCH (09:00)
[2018-09-04] MEDS ORDERED: FUROSEMIDE 20 MG INJ IV ONE (11:30)
--- NOTE | 2018-09-04 11:41 | CONS ---
Consult Date/Type/Reason Admit Date/Time August 27, 2018 at 09:46 Initial Consult Date 08/25/18 Type of Consultation: cv Requesting Provider: JORGE A ALLEN MD Date/Time of Note DATE: 09/04/18 TIME: 11:40 Subjective interventional cardiology follow-up progress note Subjective: Discussed with the staff and tele was reviewed pt remains in NSR Discussed with Dr. Pelayo. Discussed with multiple family members at the bedside no bleeding Patient has a lot less chest wall tenderness. No palpitations s/p CABG 08/28 Objective: General: no acute distress HEENT: NC/AT. pupils are equal. round. NECK: S/P R IJ catheter . no stridor. chest: Status post sternotomy with chest tubes in place CV: RRR. systolic murmur; no gallop or rubs. PULM: no wheezing or rhonchi. CHEST S/P sternotomy. GI: SOFT, NT, ND, no rebound or guarding Extremity: trace B/L LE edema. no clubbing. neuro: awake and alert, OX3. Psych: calm and pleasant rectal: deferred Vascular: Right femoral no bleeding or hematoma. No bruit Echocardiogram was personally reviewed which shows: Normal left ventricular systolic function. Normal left ventricular cavity size. Ejection fraction is visually estimated at 60 %. Tissue Doppler/Mitral Doppler indices are consistent with impaired relaxation (Stage I diastolic dysfunction). E/E'= 9. Normal appearance and function of the mitral valve with trace physiologic regurgitation. No significant aortic stenosis or insufficiency. Aortic cusps appear mildly calcified. Trileaflet aortic valve. Normal appearance and function of the tricuspid valve with trace physiologic regurgitation. Estimated peak PA systolic pressure 27 mmHg. CXR . Interval extubation. 2. Stable postsurgical changes of a CABG. 3. Mild bibasilar atelectasis. 4. Multiple support lines tubes as described. Objective Vitals Vital Signs Date Temp Pulse Resp B/P (MAP) Pulse Ox O2 O2 Flow FiO2 Time Delivery Rate 09/04/18 85 08:00 09/04/18 98.9 18 114/70 92 03:51 (85) 09/04/18 3.0 01:52 09/03/18 Room Air 10:30 Intake and Output 09/03/18 09/03/18 09/04/18 1515:00 23:00 07:00 IntakeIntake Total 750 ml 400 ml BalanceBalance 750 ml 400 ml Results/Medications Result Diagram: 09/03/1831 09/03/1831 Results 24 hrs Laboratory Tests Test 09/03/18 12:28 09/03/18 17:16 09/03/18 20:48 09/04/18 08:00 Bedside Glucose 134 141 126 113 Test 09/04/18 11:18 Bedside Glucose 117 Home Meds Reported Medications Pantoprazole* (Pantoprazole*) 20 Mg Tablet.dr, 20 MG PO BID, TAB 08/24/18 Lisinopril* (Lisinopril*) 10 Mg Tablet, 10 MG PO DAILY, #30 TAB 08/24/18 Medications Current Medications IV Flush (NS 3 ml) 3 ml PER PROTOCOL IV ; Start 08/24/18 at 23:00 Ondansetron HCl (Zofran Inj) 4 mg Q6H PRN IV NAUSEA/VOMITING Last administered on 08/30/18at 17:32; Admin Dose 4 MG; Start 08/24/18 at 23:00 Nitroglycerin (Nitroglycerin (Sl Tab) 0.4 Mg) 1 tab Q5M PRN SL .CHEST PAIN; Start 08/24/18 at 23:00 Albuterol/ Ipratropium (Duoneb) 3 ml Q2H RESP THERAPY PRN HHN SHORTNESS OF BREATH Last administered on 09/03/18at 06:05; Admin Dose 3 ML; Start 08/24/18 at 23:00 Pantoprazole Sodium (Protonix) 20 mg BID@0600,1800 PO Last administered on 09/04/18at 06:59; Admin Dose 20 MG; Start 08/25/18 at 06:00 Atorvastatin Calcium (Lipitor) 80 mg HS PO Last administered on 09/03/18at 20:51; Admin Dose 80 MG; Start 08/25/18 at 21:00 Oxycodone/ Acetaminophen (Percocet (5/ 325)) 1 tab Q3H PRN PO PAIN LEVEL 1-5 Last administered on 09/02/18at 14:32; Admin Dose 1 TAB; Start 08/28/18 at 16:30 Oxycodone/ Acetaminophen (Percocet (5/ 325)) 2 tab Q3H PRN PO PAIN LEVEL 6-10 Last administered on 09/02/18at 16:07; Admin Dose 2 TAB; Start 08/28/18 at 16:30 Ondansetron HCl (Zofran Inj) 2 mg ONCE PRN IV NAUSEA AND/OR VOMITING; Start 08/28/18 at 16:30 Aspirin (Aspirin) 325 mg DAILY PO Last administered on 09/04/18at 08:29; Admin Dose 325 MG; Start 08/29/18 at 09:00 Acetaminophen (Tylenol Tab) 650 mg Q3H PRN PO ELEVATED TEMPERATURE Last administered on 08/29/18at 08:08; Admin Dose 650 MG; Start 08/28/18 at 16:30 Acetaminophen (Tylenol Supp) 650 mg Q3H PRN [place] ELEVATED TEMPERATURE; Start 08/28/18 at 16:30 Potassium Chloride 50 ml @ 50 mls/hr SEE DIRECTION PRN IVPB K+ LEVEL Last administered on 08/28/18at 18:45; Admin Dose 50 MLS/HR; Start 08/28/18 at 16:30 Magnesium Sulfate/ Dextrose 100 ml @ 100 mls/hr PRN PRN IVPB PENDING LAB VALUE; Start 08/28/18 at 16:30 Albumin Human 250 ml @ 250 mls/hr PRN PRN IV CVP <8, CI <2.0 Last administered on 08/29/18at 06:44; Admin Dose 250 MLS/HR; Start 08/29/18 at 06:30 Miscellaneous Information 1 ea NOTE XX ; Start 08/29/18 at 15:30 Glucose (Glutose) 15 gm Q15M PRN PO DECREASED GLUCOSE; Start 08/29/18 at 15:30 Glucose (Glutose) 22.5 gm Q15M PRN PO DECREASED GLUCOSE; Start 08/29/18 at 15:30 Dextrose (D50w Syringe) 25 ml Q15M PRN IV DECREASED GLUCOSE; Start 08/29/18 at 15:30 Dextrose (D50w Syringe) 50 ml Q15M PRN IV DECREASED GLUCOSE; Start 08/29/18 at 15:30 Glucagon (Glucagen) 1 mg Q15M PRN IM DECREASED GLUCOSE; Start 08/29/18 at 15:30 Glucose (Glutose) 15 gm Q15M PRN BUCCAL DECREASED GLUCOSE; Start 08/29/18 at 15:30 Morphine Sulfate (morphine) 2 mg Q4H PRN IV MOD PAIN (4-6) Last administered on 09/03/18 06:24; Admin Dose 2 MG; Start 08/29/18 at 15:30 Morphine Sulfate (morphine) 4 mg Q4H PRN IV SEVERE PAIN LEVEL 7-10 Last administered on 09/03/18 22:02; Admin Dose 4 MG; Start 08/29/18 at 15:30 Lidocaine (Lidoderm) 2 patch DAILY TD Last administered on 09/04/18 08:31; Admin Dose 2 PATCH; Start 08/29/18 at 20:00 Insulin Aspart (Novolog Insulin Pen) NOVOLOG *MODERATE* ALGORI... AC MEALS AND BEDTIME SC Last administered on 09/03/18 17:52; Admin Dose 2 UNIT; Start 09/03/18 at 17:25 Docusate Sodium (Colace) 100 mg BID PO Last administered on 09/04/18 08:31; Admin Dose 100 MG; Start 09/03/18 at 21:00 Lisinopril (Zestril) 5 mg DAILY PO Last administered on 09/04/18 08:31; Admin Dose 5 MG; Start 09/04/18 at 09:00 Metoprolol Succinate (Toprol Xl) 25 mg BID PO Last administered on 09/04/18 08:31; Admin Dose 25 MG; Start 09/03/18 at 21:00 Assessment/Plan Hospital Course (Demo Recall) 1. ACS: S/P CABG 08/28 2. Hypertension 3. Diabetes 4. Dyslipidemia 5. Abnormal EKG 6. Family history of coronary artery disease 7. Sikhism 8. Postop anemia Recommendations: Continue with current cardiac care. CONT ASA Increase toprol xl 25 bid Resume low-dose lisinopril CT surgery input is appreciated. Thank you for his referral. We will continue following with you FRANKY HUDSON MD [facility] FRANKY HUDSON MD September 04, 2018 11:41
[2018-09-04] MEDS ORDERED: METO-335 PO (15:39)
[2018-09-04] MEDS ORDERED: NITR0.4T32 SL (15:39)
[2018-09-04] MEDS ORDERED: ATOR-2 PO (15:39)
[2018-09-04] MEDS ORDERED: OXYC-438 PO (15:39)
[2018-09-04] MEDS ORDERED: ASPI325T29 PO (15:39)
[2018-09-04] MEDS ORDERED: LISI-313 PO (15:39)
[2018-09-04] MEDS ORDERED: FURO-110 PO (15:40)
--- NOTE | 2018-09-04 15:41 | PDOCDIS ---
Discharge Instructions CONDITION [id number] Patient Condition: [id number] Good HOME CARE INSTRUCTIONS: [id number] Diet Instructions: [id number] Modified Fat ACTIVITY: [id number] Activity Restrictions: [id number] Slowly Increase Activity Avoid heavy lifting (X4 weeks) FOLLOW UP/APPOINTMENTS Follow-up Plan Follow-up with your PCP, principal architectural firm and cardiothoracic surgeon in 1 to 2 weeks MAXIMO SHAH September 04, 2018 15:41
--- NOTE | 2018-09-05 12:18 | DS ---
Date/Time of Note Date/Time of Note DATE: 09/05/18 TIME: 12:15 Discharge Summary Admission/Discharge Info Admit Date/Time August 27, 2018 at 09:46 Discharge Date/Time September 04, 2018 at 18:15 Discharge Diagnosis 67-year-old female with a history of hypertension, type 2 diabetes, dyslipidemia, gastritis who presented to ER complaining of chest pain currently managed as follows: 1. Unstable angina/chest pain now with known multivessel coronary artery disease -No further chest pain -Status post Abnormal stress test August 25, 2018 and then subsequent angiogram August 26, 2018 that showed multivessel coronary artery disease including significant ostial LAD disease as well as right coronary artery disease. -Coronary artery bypass surgery 08/28/18, chest tubes now removed -Patient with reports of shortness of breath, monitor off supplemental O2, provide O2 if indicated -No further shortness of breath, patient is status post Lasix IV, DC with Lasix as needed 2. Diabetes mellitus type 2: -Hemoglobin A1c was 5.9, but patient was on metformin therapy prior to admission. -Status post insuin gtt 3. Dyslipidemia with low HDL -Patient has been started on high-dose statin therapy for coronary artery disease 4. Hypertension: Patient is having good control on EARLENE inhibitor and beta-block er -Continue regimen 5. Chronic gastritis: -Continue PPI 6. CLEMENCIA: improved 7. Patient is Anglican but consented to receiving blood prior to surgery Patient Condition: Good Hospital Course Patient is a 67-year-old female with a history of hypertension, type 2 diabetes, dyslipidemia, gastritis who presented to ER complaining of chest pain and was diagnosed with unstable angina. Patient had a heart cath which showed multivessel coronary disease, patient was evaluated by CT surgery and ultimately had a CABG on 08/28/2018. Chest tubes were removed the patient was downgraded to telemetry where she was stable. Patient did complain of shortness of breath and received Lasix IV with resolution. Of note echo done during hospitalization showed preserved EF, patient was stable for DC and on the day of discharge patient's vitals, labs and physical exam are stable. Home Meds Active Scripts Furosemide* (Lasix*) 20 Mg Tablet, 20 MG PO DAILY PRN for SHORTNESS OF BREATH, #30 TAB Prov:MAXIMO SHAH 09/04/18 Oxycodone HCl/Acetaminophen (Oxycodone-Acetaminophen 5-325) 1 Each Tablet, 1 TAB PO Q4 PRN for PAIN LEVEL 1-5, #30 TAB Prov:MAXIMO SHAH 09/04/18 Aspirin (Aspirin Lite-Coat) 325 Mg Tablet, 325 MG PO DAILY, #60 TAB Prov:MAXIMO SHAH 09/04/18 Nitroglycerin* (Nitroglycerin* SL) 0.4 Mg Tab.subl, 1 TAB SL Q5M PRN for .CHEST PAIN, #60 TAB Prov:MAXIMO SHAH 09/04/18 Metoprolol Succinate* (Toprol XL*) 25 Mg Tab.sr.24h, 25 MG PO BID, #60 TAB Prov:MAXIMO SHAH 09/04/18 Lisinopril* (Lisinopril*) 5 Mg Tablet, 5 MG PO DAILY, #60 TAB Prov:MAXIMO SHAH 09/04/18 Atorvastatin* (Atorvastatin*) 80 Mg Tablet, 80 MG PO HS, #60 TAB Prov:MAXIMO SHAH 09/04/18 Reported Medications Pantoprazole* (Pantoprazole*) 20 Mg Tablet.dr, 20 MG PO BID, TAB 08/24/18 Discontinued Reported Medications Lisinopril* (Lisinopril*) 10 Mg Tablet, 10 MG PO DAILY, #30 TAB 08/24/18 Follow-up Plan Follow-up with your PCP, perioperative assistant and cardiothoracic surgeon in 1 to 2 weeks Primary Care Provider Care Physician No Primary Time spent on discharge: > 30 minutes MAXIMO SHAH September 05, 2018 12:18
== END 2018-09-04 18:15 | disposition home or self-care (01) | DRG 234 ==
LOC: E/R 17:27 → 6WM 19:57 → ICU 08-26 16:24 → 6WM 08-26 19:52 → OBSVTOIN 08-27 09:46 → ICU 08-28 06:38 → TEL 09-02 18:20
PROVIDERS: ADMIT Internal Medicine; ATTEND Internal Medicine
PROC: 4A023N7 Measurement of Cardiac Sampling and Pressure, Left Heart, Percutaneous Approach (ICD-10-PCS; 2018-08-26)
PROC: B211YZZ Fluoroscopy of Multiple Coronary Arteries using Other Contrast (ICD-10-PCS; 2018-08-26)
PROC: B215YZZ Fluoroscopy of Left Heart using Other Contrast (ICD-10-PCS; 2018-08-26)
PROC: 021109W Bypass Coronary Artery, Two Arteries from Aorta with Autologous Venous Tissue, Open Approach (ICD-10-PCS; 2018-08-28)
PROC: 06BQ4ZZ Excision of Left Saphenous Vein, Percutaneous Endoscopic Approach (ICD-10-PCS; 2018-08-28)
PROC: 5A1221Z Performance of Cardiac Output, Continuous (ICD-10-PCS; 2018-08-28)
PROC: 5A1223Z Performance of Cardiac Pacing, Continuous (ICD-10-PCS; 2018-08-28)
PROC: 02100Z9 Bypass Coronary Artery, One Artery from Left Internal Mammary, Open Approach (ICD-10-PCS; principal; 2018-08-28 07:00)
DX: I25.110 Atherosclerotic heart disease of native coronary artery with unstable angina pectoris (principal); N17.9 Acute kidney failure, unspecified; I24.9 Acute ischemic heart disease, unspecified; E87.0 Hyperosmolality and hypernatremia; D62 Acute posthemorrhagic anemia; I97.130 Postprocedural heart failure following cardiac surgery; I50.9 Heart failure, unspecified; Y83.2 Surgical operation with anastomosis, bypass or graft as the cause of abnormal reaction of the patient, or of later complication, without mention of misadventure at the time of the procedure; E78.5 Hyperlipidemia, unspecified; E11.9 Type 2 diabetes mellitus without complications; I10 Essential (primary) hypertension; K29.50 Unspecified chronic gastritis without bleeding; R53.81 Other malaise; R94.31 Abnormal electrocardiogram [ECG] [EKG]; Z82.49 Family history of ischemic heart disease and other diseases of the circulatory system; Z79.84 Long term (current) use of oral hypoglycemic drugs
CPT/HCPCS: 36415; 36592; 36600; 71045; 78451; 80048; 80053; 80061; 81001; 81003; 82043; 82550; 82553; 82803; 82962; 83036; 83540; 83735; 83880; 84100; 84155; 84300; 84443; 84484; 85025; 85610; 85730; 86850; 86900; 86901; 86920; 87081; 93005; 93306; 93312; 93325; 93458; 93880; 93970; 94640; 97110; 97116; 97163; 97530; 99217; G0378; A9500; C1760; C1887; C1894; J0171; J0690; J1170; J1265; J1644; J1815; J1940; J2250; J2270; J2370; J2405; J2440; J2720; J2916; J3010; J3370; J3475; J3480; J7030; J7042; J7070; P9045; P9047; Q9967

== ENCOUNTER 2018-10-10 13:36 | Observation (INO) | payer MEDICARE ==
[~2018-10-10] VITALS: Ht 157.5 cm; Wt 65.5 kg
[~2018-10-10 13:36] MED LIST: ASPI325T29 PO; ATOR-2 PO; FURO-110 PO; LISI-313 PO; METO-335 PO; NITR0.4T32 SL; OXYC-438 PO; PANT20TA3 PO
[2018-10-10] MEDS ORDERED: SOD CHLORIDE 0.9% 100 ML ONE (14:24)
[2018-10-10] MEDS ORDERED: IODIXANOL LOCM 100 ML BTL ONE (14:24)
[2018-10-10] MEDS ORDERED: ONDANSETRON 4 MG INJ IV PRN (15:30)
[2018-10-10] MEDS ORDERED: ASPI-817 PO (16:12)
[2018-10-10] MEDS ORDERED: ACET1TAB40 PO (16:12)
[2018-10-10] MEDS ORDERED: LISI-313 PO (16:13)
--- NOTE | 2018-10-10 16:31 | ERD ---
ER Documentation Chief Complaint Chief Complaint aloc when woke up this am at 0700, confused HPI This is a very pleasant 67-year-old Urdu-speaking female with a past medical history of coronary artery bypass graft x4 in August 2018 performed by the vascular surgeon Dr. Mccollum. The patient takes 81 mg of aspirin on a daily basis. The patient was brought into the emergency department by her daughter and her son for changes in her mental status. The patient's last known normal time was at 7 PM, 20 hours prior to arrival. When the patient awoke this morning her stated that she appeared very confused and had repetitive questioning. She did not remember normal activities that she performs on a regular basis. The daughter found her and noticed that the patient had slurred speech and was not answering questions appropriately. The patient has been compliant with all her medications and denies a recent headache chest pain or shortness of breath. She said no fevers or shaking no chills. She denies any frequency urgency or dysuria. She has never had any similar symptoms in the past. ROS All systems reviewed and are negative except as per history of present illness. Medications Home Meds Active Scripts Furosemide* (Lasix*) 20 Mg Tablet, 20 MG PO DAILY PRN for SHORTNESS OF BREATH, #30 TAB Prov:MAXIMO SHAH 09/04/18 Metoprolol Succinate* (Toprol XL*) 25 Mg Tab.sr.24h, 25 MG PO BID, #60 TAB Prov:MAXIMO SHAH 09/04/18 Atorvastatin* (Atorvastatin*) 80 Mg Tablet, 80 MG PO HS, #60 TAB Prov:MAXIMO SHAH 09/04/18 Reported Medications Lisinopril* (Lisinopril*) 5 Mg Tablet, 5 MG PO DAILY, #30 TAB 10/10/18 Acetaminophen with Codeine (Acetaminophen-Cod #3 Tablet) 1 Each Tablet, 1 TAB PO Q6H PRN for PRN, #7 TAB 10/10/18 Aspirin* (Aspirin* EC) 81 Mg Tablet.dr, 81 MG PO DAILY, TAB 10/10/18 Discontinued Reported Medications Pantoprazole* (Pantoprazole*) 20 Mg Tablet.dr, 20 MG PO BID, TAB 08/24/18 Discontinued Scripts Oxycodone HCl/Acetaminophen (Oxycodone-Acetaminophen 5-325) 1 Each Tablet, 1 TAB PO Q4 PRN for PAIN LEVEL 1-5, #30 TAB Prov:MAXIMO SHAH 09/04/18 Aspirin (Aspirin Lite-Coat) 325 Mg Tablet, 325 MG PO DAILY, #60 TAB Prov:MAXIMO SHAH 09/04/18 Nitroglycerin* (Nitroglycerin* SL) 0.4 Mg Tab.subl, 1 TAB SL Q5M PRN for .CHEST PAIN, #60 TAB Prov:MAXIMO SHAH 09/04/18 Lisinopril* (Lisinopril*) 5 Mg Tablet, 5 MG PO DAILY, #60 TAB Prov:MAXIMO SHAH 09/04/18 Allergies Allergies: Coded Allergies: tramadol (Verified Allergy, Intermediate, itching, 08/28/18) PMhx/Soc History of Surgery: Yes (tubal ligation, bilat knee replacement, CABG) Anesthesia Reaction: No Hx Neurological Disorder: No Hx Respiratory Disorders: No Hx Cardiac Disorders: Yes (HTN) Hx Psychiatric Problems: No Hx Miscellaneous Medical Probl: Yes (See note) Hx Alcohol Use: No Hx Substance Use: No Hx Tobacco Use: No Smoking Status: Never smoker Physical Exam Vitals Vital Signs Date Temp Pulse Resp B/P (MAP) Pulse Ox O2 O2 Flow FiO2 Time Delivery Rate 10/10/18 98.0 86 16 144/63 97 Room Air 15:30 (90) 10/10/18 98.0 105 18 151/87 99 13:44 (108) Physical Exam Constitutional:Well-developed. Well-nourished. HEENT:Normocephalic. Atraumatic.Pupils were equal round reactive to light. Moist mucous membranes.No tonsillar exudates. Neck: No nuchal rigidity. No lymphadenopathy. No posterior cervical spine tenderness or step-offs. Respiratory: Not using accessory muscles of respiration.Lungs were clear to auscultation bilaterally. No rhonchi. No rales. No wheezing. Cardiovascular: Regular rate regular rhythm.No murmurs. No rubs were appreciated.S1, S2 normal. Distal pulses are palpable 2+ bilaterally. GI: Abdomen was soft. Nontender. Non Distended. No pulsatile abdominal masses or bruits. No rebound. No guarding. Bowel sounds were present and normal. Muscle skeletal: Full range of motion of both the upper and lower extremities bilaterally.Normal muscle tone.No assymetrical calf tenderness or swelling. Skin: No petechia, no purpura. No lesions on the palms or the soles of the feet. No maculopapular rash. NEURO: Patient was alert, awake, orientated x3.patient knew the year that she was in the hospital and who the president the [facility] was. No pronator drift. Romberg sign negative. No facial droop. Gait observed and normal with no ataxia.Speech had regular rate and rhythm. No focal neurological deficits. Result Diagram: 10/10/18 1404 10/10/18 1404 Results 24 hrs Laboratory Tests Test 10/10/18 14:04 10/10/18 14:15 White Blood Count 10.0 10^3/ul Red Blood Count 4.64 10^6/ul Hemoglobin 12.4 g/dl Hematocrit 39.7 % Mean Corpuscular Volume 85.6 fl Mean Corpuscular Hemoglobin 26.7 pg Mean Corpuscular Hemoglobin Concent 31.2 g/dl Red Cell Distribution Width 14.0 % Platelet Count 300 10^3/UL Mean Platelet Volume 10.3 fl Immature Granulocytes % 0.200 % Neutrophils % 29.4 % Lymphocytes % 30.8 % Monocytes % 3.0 % Eosinophils % 35.9 % Basophils % 0.7 % Nucleated Red Blood Cells % 0.0 /100WBC Immature Granulocytes # 0.020 10^3/ul Neutrophils # 2.9 10^3/ul Lymphocytes # 3.1 10^3/ul Monocytes # 0.3 10^3/ul Eosinophils # 3.6 10^3/ul Basophils # 0.1 10^3/ul Nucleated Red Blood Cells # 0.0 10^3/ul Prothrombin Time 14.0 Sec Prothrombin Time Ratio 1.1 INR International Normalized Ratio 1.07 Activated Partial Thromboplast Time 29.0 Sec Sodium Level 143 mmol/L Potassium Level 4.2 mmol/L Chloride Level 107 mmol/L Carbon Dioxide Level 24 mmol/L Anion Gap 12 Blood Urea Nitrogen 9 mg/dl Creatinine 0.73 mg/dl Est Glomerular Filtrat Rate mL/min > 60 mL/min Glucose Level 114 mg/dl Calcium Level 9.9 mg/dl Total Bilirubin 0.4 mg/dl Direct Bilirubin 0.00 mg/dl Indirect Bilirubin 0.4 mg/dl Aspartate Amino Transf (AST/SGOT) 28 IU/L Alanine Aminotransferase (ALT/SGPT) 89 IU/L Alkaline Phosphatase 327 IU/L Creatine Kinase 53 IU/L Creatine Kinase Index 1.4 Creatinine Kinase MB (Mass) 0.74 ng/ml Troponin I < 0.012 ng/ml Total Protein 8.5 g/dl Albumin 4.4 g/dl Globulin 4.10 g/dl Albumin/Globulin Ratio 1.07 Triglycerides Level 80 mg/dl Cholesterol Level 111 mg/dl LDL Cholesterol, Calculated 67 mg/dl HDL Cholesterol 28 mg/dl Cholesterol/HDL Ratio 3.9 RATIO Urine Color YELLOW Urine Clarity SLIGHTLY CLOUDY Urine pH 5.0 Urine Specific [place] 1.009 Urine Ketones NEGATIVE mg/dL Urine Nitrite NEGATIVE mg/dL Urine Bilirubin NEGATIVE mg/dL Urine Urobilinogen NEGATIVE mg/dL Urine Leukocyte Esterase 1+ Ag/ul Urine Microscopic RBC 4 /HPF Urine Microscopic WBC 21 /HPF Urine Squamous Epithelial Cells FEW /HPF Urine Hemoglobin NEGATIVE mg/dL Urine Glucose NEGATIVE mg/dL Urine Total Protein NEGATIVE mg/dl Urine Opiates Screen Positive Urine Barbiturates Negative Urine Amphetamines Screen Negative Urine Benzodiazepines Screen Negative Urine Cocaine Screen Negative Urine Cannabinoids Negative Current Medications Medications Dose Sig/Rosario Start Time Status Last (Trade) Ordered Route PRN Stop Time Admin Dose Reason Admin IV Flush 10 ml STK-MED 10/10/18 DC (NS 10 ml) ONCE .ROUTE 14:24 10/10/18 14:25 Sodium 100 ml @ ud STK-MED 10/10/18 DC Chloride ONCE .ROUTE 14:24 10/10/18 14:25 Iodixanol 100 ml STK-MED 10/10/18 DC (Visipaque ONCE .ROUTE 14:24 Locm) 10/10/18 14:25 Ondansetron 4 mg ER BRIDGE 10/10/18 HCl (Zofran PRN IV 15:30 Inj) NAUSEA/VOMITI 10/11/18 15:29 NG 650 mg ER BRIDGE 10/10/18 Acetaminophen PRN PO 15:30 (Tylenol .MILD PAIN 10/11/18 15:29 Tab) 1-3 OR TEMP Procedures/MDM This is a very pleasant 67-year-old female presented to the emergency department with changes in her mental status and physical exam findings that initially were concerned from history of a cerebrovascular accident. However the patient's symptoms are completely resolved when she arrived into the hospital. A CT scan of her head was obtained and there is no intracerebral hemorrhage mass-effect or midline shift. Patient no severe electrolyte abnormalities. I obtained a 12- lead EKG tracing to rule for atypical myocardial infarctions. 12 Lead EKG tracing ordered and reviewed by myself showed: Normal sinus rhythm of 94 bpm and no arrhythmia. IA interval normal. QRS duration normal. No ST segment elevation No ST segment depression. No changes consistent with acute ischemia. The patient underwent a CT of her head which indicated no subarachnoid hemorrhage however there was high-grade right and moderate - high-grade left vertebral artery origin stenosis. The patient did have a mild infection her urine. She is given IV ceftriaxone. She will be admitted to the hospitalist for observation and go to the telemetry service for suspected TIA Departure Diagnosis: Primary Impression: TIA (transient ischemic attack) Additional Impression: Urinary tract infection Urinary tract infection type: acute cystitis Hematuria presence: without h ematuria Qualified Codes: N30.00 - Acute cystitis without hematuria Condition: Serious JUAN WALTERS MD Oct 10, 2018 16:31
--- NOTE | 2018-10-10 16:40 | HP ---
Date/Time of Note Date/Time of Note DATE: 10/10/18 TIME: 16:22 Assessment/Plan VTE Prophylaxis SCD applied (from Nsg): Yes Pharmacological prophylaxis: heparin Lines/Catheters IV Catheter Type (from Nrsg): Peripheral IV Assessment/Plan Hospital Course 67 yo female with h/o CAD s/p CABG in June 2018, hypertension who presents with new onset dyspepsia and episode of delirium this morning Dyspepsia: - Will give a PPI - New onset at advanced age, probably warrants EGD. Will consult Dr Knox for consideration Delirium: - Symptoms resolved and she is now back to mental baseline - Perhaps this is due to emotional stress as her daughter seems to be believe - She does not have any localizing neurologic findings to suggest a stroke - Will consult Dr Beckford CAD: - Continue aspirin, statin, lisinopirl, metoprolol Result Diagram: 10/10/18 1404 10/10/18 1404 Results 24hrs Laboratory Tests Test 10/10/18 14:04 10/10/18 14:15 White Blood Count 10.0 Red Blood Count 4.64 # Hemoglobin 12.4 # Hematocrit 39.7 # Mean Corpuscular Volume 85.6 Mean Corpuscular Hemoglobin 26.7 L Mean Corpuscular Hemoglobin Concent 31.2 L Red Cell Distribution Width 14.0 Platelet Count 300 Mean Platelet Volume 10.3 Immature Granulocytes % 0.200 Neutrophils % 29.4 L Lymphocytes % 30.8 Monocytes % 3.0 Eosinophils % 35.9 H Basophils % 0.7 Nucleated Red Blood Cells % 0.0 Immature Granulocytes # 0.020 Neutrophils # 2.9 Lymphocytes # 3.1 H Monocytes # 0.3 Eosinophils # 3.6 H Basophils # 0.1 Nucleated Red Blood Cells # 0.0 Prothrombin Time 14.0 Prothrombin Time Ratio 1.1 INR International Normalized Ratio 1.07 Activated Partial Thromboplast Time 29.0 Sodium Level 143 Potassium Level 4.2 Chloride Level 107 Carbon Dioxide Level 24 Anion Gap 12 Blood Urea Nitrogen 9 Creatinine 0.73 Est Glomerular Filtrat Rate mL/min > 60 Glucose Level 114 Calcium Level 9.9 Total Bilirubin 0.4 Direct Bilirubin 0.00 Indirect Bilirubin 0.4 Aspartate Amino Transf (AST/SGOT) 28 Alanine Aminotransferase (ALT/SGPT) 89 H Alkaline Phosphatase 327 H Creatine Kinase 53 Creatine Kinase Index 1.4 Creatinine Kinase MB (Mass) 0.74 Troponin I < 0.012 Total Protein 8.5 H Albumin 4.4 Globulin 4.10 H Albumin/Globulin Ratio 1.07 Triglycerides Level 80 Cholesterol Level 111 LDL Cholesterol, Calculated 67 HDL Cholesterol 28 L Cholesterol/HDL Ratio 3.9 Urine Color YELLOW Urine Clarity SLIGHTLY CLOUDY A Urine pH 5.0 Urine Specific [place] 1.009 Urine Ketones NEGATIVE Urine Nitrite NEGATIVE Urine Bilirubin NEGATIVE Urine Urobilinogen NEGATIVE Urine Leukocyte Esterase 1+ H Urine Microscopic RBC 4 Urine Microscopic WBC 21 H Urine Squamous Epithelial Cells FEW Urine Hemoglobin NEGATIVE Urine Glucose NEGATIVE Urine Total Protein NEGATIVE Urine Opiates Screen Positive Urine Barbiturates Negative Urine Amphetamines Screen Negative Urine Benzodiazepines Screen Negative Urine Cocaine Screen Negative Urine Cannabinoids Negative HPI/ROS Admit Date/Time Admit Date/Time Hx of Present Illness 67 yo female with h/o CABG in June, hypertension who presents with dyspepsia and episode of delirium this AM Patient had CABG this june. Did well post operatively Over past couple weeks she has developed epigastric discomfort with food. She has not been eating as a result. Sometimes nauseous No weight loss or blood in stool This morning she woke up and had episode of confusion. says she didn't know where she was, who he was. Very confused but symtposm resolved and she is now back to normal. She did not have any localizing neurologic symptoms ROS Constitutional: no complaints, improved Eyes: no complaints ENT: no complaints Respiratory: no complaints Cardiovascular: no complaints Gastrointestinal: no complaints Genitourinary: no complaints Musculoskeletal: no complaints Skin: no complaints Neurologic: no complaints Endocrine: no complaints Lymphatic: no complaints Psychological: no complaints, nl mood/affect Immunologic: no complaints PMH/Family/Social Past Medical History Medications Current Medications Ondansetron HCl (Zofran Inj) 4 mg ER BRIDGE PRN IV NAUSEA/VOMITING; Start 10/10/18 at 15:30; Stop 10/11/18 at 15:29 Acetaminophen (Tylenol Tab) 650 mg ER BRIDGE PRN PO .MILD PAIN 1-3 OR TEMP; Start 10/10/18 at 15:30; Stop 10/11/18 at 15:29 Coded Allergies: tramadol (Verified Allergy, Intermediate, itching, 08/28/18) Past Surgical History Past Surgical Hx: coronary bypass surgery, other Family History Significant Family History: no pertinent family hx Social History Alcohol Use: none Smoking Status: Never smoker Drug Use: none Exam/Review of Systems Vital Signs Vitals Vital Signs Date Temp Pulse Resp B/P (MAP) Pulse Ox O2 O2 Flow FiO2 Time Delivery Rate 10/10/18 98.0 86 16 144/63 97 Room Air 15:30 (90) Exam Constitutional: alert, oriented, well developed Psych: no complaints, nl mood/affect Head: normocephalic, atraumatic Eyes: nl conjunctiva, EOMI, nl lids, nl sclera, PERRL ENMT: nl external ears & nose, nl lips & teeth, nl nasal mucosa & septum Neck: supple, non-tender Respiratory: clear to auscultation, normal air movement Cardiovascular: regular rate and rhythm, nl pulses Gastrointestinal: soft, nl liver, spleen, non-tender Musculoskeletal: nl extremities to inspection Extremities: normal pulses Neurological: CUPOLA TAPPER II-XII intact, nl mental status, nl speech, nl strength Skin: nl turgor; No rash or lesions Lymph: nl lymph nodes ARABELLA BERRY MD Oct 10, 2018 16:40
[2018-10-10] MEDS ORDERED: NACL 0.9% 3 ML SYG IV SCH (17:00)
[2018-10-10] MEDS ORDERED: HYDROCODONE/APAP (5/325) TAB PO PRN (17:00)
[2018-10-10] MEDS ORDERED: FUROSEMIDE 20 MG TAB PO PRN (17:00)
[2018-10-10] MEDS: ACETAMINOPHEN 325 MG TAB PO PRN ×2 (17:35→23:09)
[2018-10-10] MEDS: PANTOPRAZOLE (EC) 40 MG TAB PO SCH (17:36)
[2018-10-10 17:57] VITALS: Ht 157.5 cm; Wt 65.5 kg
[2018-10-10 19:44] VITALS: BP 119/56; PULSE 75; RESP 18
[2018-10-10] MEDS: ATORVASTATIN 80 MG TAB PO SCH (20:32)
[2018-10-10] MEDS: METOPROLOL (XL) 25 MG TAB PO SCH (20:32)
[2018-10-10 23:52] VITALS: BP 115/68; PULSE 79; RESP 18
--- NOTE | 2018-10-11 00:51 | CONS ---
DATE OF ADMISSION: 10/10/2018 DATE OF CONSULTATION: Dear Dr. Goldstein: Thank you for asking me to see Mrs. Camargo in GI consultation. HISTORY OF PRESENT ILLNESS: As you know, the patient is an elderly female, [facility] a [facility] discomfort and period of delirium. She is 67 years of age. In the month of June, she underwent a coronary artery bypass surgery by Dr. Mccollum in [facility], and at this time, apparently, this morning she woke up, she was confused and she was brought to the hospital. From the GI standpoint, she has epigastric pain, which has been going o n for the past couple of years and she used to take omeprazole in the past. She is admitted to the [facility] because of episode of delirium and confusion this morning. From the GI standpoint, she has e vidence of a history of abdominal pain, which has been going on for the past couple of years. She is to take omeprazole in the past, which used to help a lot, but not anymore. She has nausea. She has some amount of heartburn, most of the time epigastric pain, which occurs usually after eating food. No history of vomiting blood or passing blood from the rectum. PAST MEDICAL HISTORY: As mentioned above in the month of June. She underwent a coronary artery byp ass surgery. OTHER REVIEW OF SYSTEM: Indicates that she has history of hypertension. MEDICATIONS: Currently include: 1. Zofran. 2. Tylenol. PHYSICAL EXAMINATION: GENERAL: The patient is a 67-year-old female, who at this time, she is alert, she is well b uilt. VITAL SIGNS: She is afebrile, blood pressure 115/68. CARDIOVASCULAR: Normal heart sounds. RESPIRATORY: Normal breath sounds. ABDOMEN: Shows soft abdomen with no palpable masses, no tenderness, no distention. LABORATORY WORKUP: Hemoglobin is 12.4, WBC count is 10,000. BUN 9, creatinine 0.73, potassium 4.2, alkaline phosphatase 327, ALT is 89, AST 28. IMAGING STUDIES. She had a brain CT today, which showed no loss of a mohamud-white differentiation. No CVA. CLINICAL IMPRESSION: From the GI standpoint, she has a chronic epigastric pain, periodically respond ing to proton pump inhibitor therapy. However, she continues to have symptoms. She has never had an y evaluation for this condition. Rule out peptic ulcer disease, rule out gastritis. She does have abnormal liver functions, rule out biliary tract disease, choledocholithiasis, etc. History of . Status post coronary artery bypass surgery. PLAN: Recommend proton pump inhibitor therapy. Agree with you that upper endoscopy will be helpful. Once again, Dr. Goldstein, thank you for this consultation. Dictated By: SAQIB AGUILAR MD NC/NTS Conf#: [id number] DID#: [id number] CC: ARABELLA GOLDSTEIN MD;*EndCC*
[2018-10-11 04:00] VITALS: BP 116/60; PULSE 76; RESP 20
[2018-10-11] MEDS: PANTOPRAZOLE (EC) 40 MG TAB PO SCH (05:55)
[2018-10-11 07:47] VITALS: BP 115/62; PULSE 69; RESP 20
[2018-10-11] MEDS: METOPROLOL (XL) 25 MG TAB PO SCH ×2 (08:31→21:37)
[2018-10-11] MEDS: LISINOPRIL 5 MG TAB PO SCH (08:31)
[2018-10-11] MEDS: ASPIRIN (EC) 81 MG TAB PO SCH (08:31)
[2018-10-11] MEDS: ENOXAPARIN 30 MG/0.3 ML SYG SC SCH (08:41)
--- NOTE | 2018-10-11 10:55 | CONSI ---
Assessment/Plan Assessment/Plan Assessment/Plan (Recall) 67 F c/ CAD and other comorbidities, who presents for evaluation of transient ams x 5 hours. UA equivocal The clinical picture suggests an acute toxic-metabolic encephalopathy. A focal SAP SD ANALYST process is, though, not yet excluded.. Head CT is unrevealing. CTA head/neck is unrevealing P: MRI brain for further characterization Echo for the same Agree w/ asa/lipitor daily [place] as necessary Limit sedating medications where possible PT/OT/ST as necessary Medical management and other supportive care per primary Will follow Consultation Date/Type/Reason Admit Date/Time Type of Consult Neurology Reason for Consultation transient ams Requesting Provider: ARABELLA BERRY MD Date/Time of Note DATE: 10/11/18 TIME: 10:45 Hx of Present Illness 67 yo female with h/o CABG in June, hypertension who presents with dyspepsia and episode of delirium this AM Patient had CABG this june. Did well post operatively Over past couple weeks she has developed epigastric discomfort with food. She has not been eating as a result. Sometimes nauseous No weight loss or blood in stool This morning she woke up and had episode of confusion. says she didn't know where she was, who he was. Very confused but symtposm resolved and she is now back to normal. She did not have any localizing neurologic symptoms o/w neg Objective Exam Vitals Vital Signs Date Temp Pulse Resp B/P (MAP) Pulse Ox O2 O2 Flow FiO2 Time Delivery Rate 10/11/18 98.0 69 20 115/62 96 Room Air 07:47 (79) Intake and Output 10/10/18 10/10/18 10/11/18 1515:00 23:00 07:00 IntakeIntake Total 300 ml 360 ml BalanceBalance 300 ml 360 ml Exam PE: Gen Appearance: No Apparent Distress HEENT: Normocephalic Cardiovascular: Regular rate Lungs: Clear bilaterally Abdomen: Soft, post-surgical skin changes Extremities: Dry NE: The patient was alert and oriented. Language was normal. Fund of knowledge was normal. Pupils were equal and reactive to light. There was no afferent pupillary defect. Visual kelley were normal. Funduscopic examination was limited. Extra-ocular movements were full. Ptosis was absent. There was no nystagmus. Facial sensation was normal. Face was symmetric with normal strength. Hearing was intact. Palate movements were normal. Neck strength was normal. There was normal tongue bulk and speed of movement. Tone was normal. Muscle bulk was normal. I did not see fasciculations. Arms and legs were strong. Vibration sensation was normal. Temperature and pinprick sensation was normal. Rapid alternating movements were normal. There was no dysmetria. There was no intention tremor. Gait was deferred due to bedrest. Arm and leg reflexes were symmetric. Kramer's sign was absent. Plantar responses were flexor. Results Result Diagram: 10/11/18 0601 10/11/18 0601 Results 24hrs Laboratory Tests Test 10/10/18 14:04 10/10/18 14:15 10/11/18 06:01 White Blood Count 10.0 10.6 Red Blood Count 4.64 # 4.36 Hemoglobin 12.4 # 11.5 L Hematocrit 39.7 # 36.7 L Mean Corpuscular Volume 85.6 84.2 Mean Corpuscular Hemoglobin 26.7 L 26.4 L Mean Corpuscular 31.2 L 31.3 L Hemoglobin Concent Red Cell Distribution Width 14.0 14.3 Platelet Count 300 281 Mean Platelet Volume 10.3 10.5 H Immature Granulocytes % 0.200 0.300 Neutrophils % 29.4 L 22.8 L Lymphocytes % 30.8 31.1 Monocytes % 3.0 3.4 Eosinophils % 35.9 H 41.5 H Basophils % 0.7 0.9 Nucleated Red Blood Cells % 0.0 0.0 Immature Granulocytes # 0.020 0.030 Neutrophils # 2.9 2.4 Lymphocytes # 3.1 H 3.3 H Monocytes # 0.3 0.4 Eosinophils # 3.6 H 4.4 H Basophils # 0.1 0.1 Nucleated Red Blood Cells # 0.0 0.0 Prothrombin Time 14.0 Prothrombin Time Ratio 1.1 INR International 1.07 Normalized Ratio Activated Partial Thromboplast 29.0 Time Sodium Level 143 144 Potassium Level 4.2 4.0 Chloride Level 107 109 Carbon Dioxide Level 24 24 Anion Gap 12 11 Blood Urea Nitrogen 9 12 Creatinine 0.73 0.77 Est Glomerular Filtrat > 60 > 60 Rate mL/min Glucose Level 114 129 Hemoglobin A1c 5.4 5.5 Calcium Level 9.9 9.3 Total Bilirubin 0.4 0.4 Direct Bilirubin 0.00 0.00 Indirect Bilirubin 0.4 0.4 Aspartate Amino 28 28 Transf (AST/SGOT) Alanine 89 H 72 H Aminotransferase (ALT/SGPT) Alkaline Phosphatase 327 H 247 H Creatine Kinase 53 Creatine Kinase Index 1.4 Creatinine Kinase MB (Mass) 0.74 Troponin I < 0.012 Total Protein 8.5 H 7.3 # Albumin 4.4 3.8 Globulin 4.10 H 3.50 H Albumin/Globulin Ratio 1.07 1.08 Triglycerides Level 80 Cholesterol Level 111 LDL Cholesterol, Calculated 67 HDL Cholesterol 28 L Cholesterol/HDL Ratio 3.9 Urine Color YELLOW Urine Clarity SLIGHTLY CLOUDY A Urine pH 5.0 Urine Specific [place] 1.009 Urine Ketones NEGATIVE Urine Nitrite NEGATIVE Urine Bilirubin NEGATIVE Urine Urobilinogen NEGATIVE Urine Leukocyte Esterase 1+ H Urine Microscopic RBC 4 Urine Microscopic WBC 21 H Urine Squamous FEW Epithelial Cells Urine Hemoglobin NEGATIVE Urine Glucose NEGATIVE Urine Total Protein NEGATIVE Urine Opiates Screen Positive Urine Barbiturates Negative Urine Amphetamines Screen Negative Urine Benzodiazepines Screen Negative Urine Cocaine Screen Negative Urine Cannabinoids Negative Past Medical History reviewed Home Meds Active Scripts Furosemide* (Lasix*) 20 Mg Tablet, 20 MG PO DAILY PRN for SHORTNESS OF BREATH, #30 TAB Prov:MAXIMO SHAH 09/04/18 Metoprolol Succinate* (Toprol XL*) 25 Mg Tab.sr.24h, 25 MG PO BID, #60 TAB Prov:MAXIMO SHAH 09/04/18 Atorvastatin* (Atorvastatin*) 80 Mg Tablet, 80 MG PO HS, #60 TAB Prov:MAXIMO SHAH 09/04/18 Reported Medications Lisinopril* (Lisinopril*) 5 Mg Tablet, 5 MG PO DAILY, #30 TAB 10/10/18 Acetaminophen with Codeine (Acetaminophen-Cod #3 Tablet) 1 Each Tablet, 1 TAB PO Q6H PRN for PRN, #7 TAB 10/10/18 Aspirin* (Aspirin* EC) 81 Mg Tablet.dr, 81 MG PO DAILY, TAB 10/10/18 Discontinued Reported Medications Pantoprazole* (Pantoprazole*) 20 Mg Tablet.dr, 20 MG PO BID, TAB 08/24/18 Discontinued Scripts Oxycodone HCl/Acetaminophen (Oxycodone-Acetaminophen 5-325) 1 Each Tablet, 1 TAB PO Q4 PRN for PAIN LEVEL 1-5, #30 TAB Prov:MAXIMO SHAH 09/04/18 Aspirin (Aspirin Lite-Coat) 325 Mg Tablet, 325 MG PO DAILY, #60 TAB Prov:MAXIMO SHAH 09/04/18 Nitroglycerin* (Nitroglycerin* SL) 0.4 Mg Tab.subl, 1 TAB SL Q5M PRN for .CHEST PAIN, #60 TAB Prov:MAXIMO SHAH 09/04/18 Lisinopril* (Lisinopril*) 5 Mg Tablet, 5 MG PO DAILY, #60 TAB Prov:MAXIMO SHAH 09/04/18 Medications Current Medications Ondansetron HCl (Zofran Inj) 4 mg ER BRIDGE PRN IV NAUSEA/VOMITING; Start 10/10/18 at 15:30; Stop 10/11/18 at 15:29 Acetaminophen (Tylenol Tab) 650 mg ER BRIDGE PRN PO .MILD PAIN 1-3 OR TEMP Last administered on 10/10/18at 23:09; Admin Dose 650 MG; Start 10/10/18 at 15:30; Stop 10/11/18 at 15:29 IV Flush (NS 3 ml) 3 ml PER PROTOCOL IV ; Start 10/10/18 at 17:00 Acetaminophen/ Hydrocodone Bitart ([place] (5/325)) 1 tab Q6H PRN PO .MOD PAIN 4- 6; Start 10/10/18 at 17:00 Enoxaparin Sodium (Lovenox) 30 mg DAILY SC Last administered on 10/11/18at 08:41; Admin Dose 30 MG; Start 10/11/18 at 09:00 Aspirin (Halfprin) 81 mg DAILY PO Last administered on 10/11/18at 08:31; Admin Dose 81 MG; Start 10/11/18 at 09:00 Atorvastatin Calcium (Lipitor) 80 mg HS PO Last administered on 10/10/18at 20:32; Admin Dose 80 MG; Start 10/10/18 at 21:00 Furosemide (Lasix) 20 mg DAILY PRN PO SHORTNESS OF BREATH; Start 10/10/18 at 17:00 Lisinopril (Zestril) 5 mg DAILY PO Last administered on 10/11/18at 08:31; Admin Dose 5 MG; Start 10/11/18 at 09:00 Metoprolol Succinate (Toprol Xl) 25 mg BID PO Last administered on 10/11/18at 08:31; Admin Dose 25 MG; Start 10/10/18 at 21:00 Pantoprazole (Protonix Tab) 40 mg DAILY@06 PO Last administered on 10/11/18at 05:55; Admin Dose 40 MG; Start 10/10/18 at 17:00 Allergies: Coded Allergies: tramadol (Verified Allergy, Intermediate, itching, 08/28/18) Past Surgical History Past Surgical Hx: coronary bypass surgery, other Social History Alcohol Use: none Smoking Status: Never smoker Drug Use: none MAGDA HILARIO Oct 11, 2018 10:55
--- NOTE | 2018-10-11 11:05 | CONS ---
Assessment/Plan Assessment/Plan Hospital Course (Demo Recall) 1. Cardiovascular preop evaluation 2. Odynophagia and abdominal discomfort 3. Coronary artery disease 4. Status post non-ST elevation myocardial infarction August 2018 5. Status post coronary artery bypass graft 2018 6. Anemia appears to be stable 7. Hypertension: Under good control 8. History of congestive heart failure. Currently stable 9. Dyslipidemia on a statin 10. Confusion and altered level of consciousness: Has resolved now Recommendations: Continue with aspirin as long as okay with GI Neuro work-up as per internal medicine. Head CT has been unremarkable Continue with the beta-regi statins EARLENE inhibitor will be continued. Patient is optimized from the cardiac extent with low risk of cardiovascular event for endoscopy procedure. No further cardiac work-up would be indicated Thank you for his referral. We will continue to follow along with you FRANKY HUDSON MD [facility] Consultation Date/Type/Reason Admit Date/Time Date of Consultation: Oct 11, 2018 Type of Consult Cardiology Reason for Consultation cv preop . CAD Requesting Provider: ARABELLA BERRY MD Date/Time of Note DATE: 10/11/18 TIME: 10:58 Hx of Present Illness Interventional cardiology consultation note Chief complaint: Altered level of consciousness Reason for consult: Cardiovascular preop evaluation for EGD. History of coronary artery disease History of present illness: Thank you for this referral. History was obtained from the patient discussion with her discussion with physicians. Patient also very well-known to me with a recent admission to the hospital and outpatient office visits. This is a very pleasant 67-year-old female with a history of coronary a rtery disease status post OR and bypass surgery last month who was admitted to the emergency room because of as a letter of consciousness. According to the patient and the family patient woke up and was confused and was brought into the emergency room. Will come included CT of the head has been unremarkable. She also has complained of abdominal pain as complaints at when she eats she has pain and difficulty. She has been scheduled for endoscopy. Because of her cardiac history we were kindly asked about optimize prior to the surgery. Patient denies left-sided chest pain or pressure to me now denies any PND orthopnea to me now. Allergies: Tramadol Medications were reviewed as per medical reconciliation sheet. Family history: Multiple family members including brother sister) have had coronary artery disease and OR Social history: Does not smoke or drink Patient is a [employer] Past medical history: Borderline diabetes, hypertension, dyslipidemia. History of coronary artery disease status post non-ST elevation myocardial infarction and bypass surgery in August 2018. Past surgical history: Coronary angiography done August: CABG X 4, LOPEZ to LAD, Saphenous vein graft to the first and second obtuse marginal branch of circumflex and a sequential fashion, Saphenous vein graft to the PDA Review of system: Patient denies all others except for above-mentioned Past Medical History Home Meds Active Scripts Furosemide* (Lasix*) 20 Mg Tablet, 20 MG PO DAILY PRN for SHORTNESS OF BREATH, #30 TAB Prov:MAXIMO SHAH 09/04/18 Metoprolol Succinate* (Toprol XL*) 25 Mg Tab.sr.24h, 25 MG PO BID, #60 TAB Prov:MAXIMO SHAH 09/04/18 Atorvastatin* (Atorvastatin*) 80 Mg Tablet, 80 MG PO HS, #60 TAB Prov:MAXIMO SHAH 09/04/18 Reported Medications Lisinopril* (Lisinopril*) 5 Mg Tablet, 5 MG PO DAILY, #30 TAB 10/10/18 Acetaminophen with Codeine (Acetaminophen-Cod #3 Tablet) 1 Each Tablet, 1 TAB PO Q6H PRN for PRN, #7 TAB 10/10/18 Aspirin* (Aspirin* EC) 81 Mg Tablet.dr, 81 MG PO DAILY, TAB 10/10/18 Discontinued Reported Medications Pantoprazole* (Pantoprazole*) 20 Mg Tablet.dr, 20 MG PO BID, TAB 08/24/18 Discontinued Scripts Oxycodone HCl/Acetaminophen (Oxycodone-Acetaminophen 5-325) 1 Each Tablet, 1 TAB PO Q4 PRN for PAIN LEVEL 1-5, #30 TAB Prov:MAXIMO SHAH 09/04/18 Aspirin (Aspirin Lite-Coat) 325 Mg Tablet, 325 MG PO DAILY, #60 TAB Prov:MAXIMO SHAH 09/04/18 Nitroglycerin* (Nitroglycerin* SL) 0.4 Mg Tab.subl, 1 TAB SL Q5M PRN for .CHEST PAIN, #60 TAB Prov:MAXIMO SHAH 09/04/18 Lisinopril* (Lisinopril*) 5 Mg Tablet, 5 MG PO DAILY, #60 TAB Prov:MAXIMO SHAH 09/04/18 Medications Current Medications Ondansetron HCl (Zofran Inj) 4 mg ER BRIDGE PRN IV NAUSEA/VOMITING; Start 10/10/18 at 15:30; Stop 10/11/18 at 15:29 Acetaminophen (Tylenol Tab) 650 mg ER BRIDGE PRN PO .MILD PAIN 1-3 OR TEMP Last administered on 10/10/18at 23:09; Admin Dose 650 MG; Start 10/10/18 at 15:30; Stop 10/11/18 at 15:29 IV Flush (NS 3 ml) 3 ml PER PROTOCOL IV ; Start 10/10/18 at 17:00 Acetaminophen/ Hydrocodone Bitart ([place] (5/325)) 1 tab Q6H PRN PO .MOD PAIN 4- 6; Start 10/10/18 at 17:00 Enoxaparin Sodium (Lovenox) 30 mg DAILY SC Last administered on 10/11/18at 08: 41; Admin Dose 30 MG; Start 10/11/18 at 09:00 Aspirin (Halfprin) 81 mg DAILY PO Last administered on 10/11/18at 08:31; Admin Dose 81 MG; Start 10/11/18 at 09:00 Atorvastatin Calcium (Lipitor) 80 mg HS PO Last administered on 10/10/18at 20:32; Admin Dose 80 MG; Start 10/10/18 at 21:00 Furosemide (Lasix) 20 mg DAILY PRN PO SHORTNESS OF BREATH; Start 10/10/18 at 17:00 Lisinopril (Zestril) 5 mg DAILY PO Last administered on 10/11/18at 08:31; Admin Dose 5 MG; Start 10/11/18 at 09:00 Metoprolol Succinate (Toprol Xl) 25 mg BID PO Last administered on 10/11/18at 08:31; Admin Dose 25 MG; Start 10/10/18 at 21:00 Pantoprazole (Protonix Tab) 40 mg DAILY@06 PO Last administered on 10/11/18at 05:55; Admin Dose 40 MG; Start 10/10/18 at 17:00 Allergies: Coded Allergies: tramadol (Verified Allergy, Intermediate, itching, 08/28/18) Past Surgical History Past Surgical Hx: coronary bypass surgery, other Social History Alcohol Use: none Smoking Status: Never smoker Drug Use: none Exam/Review of Systems Vital Signs Vitals Vital Signs Date Temp Pulse Resp B/P (MAP) Pulse Ox O2 O2 Flow FiO2 Time Delivery Rate 10/11/18 98.0 69 20 115/62 96 Room Air 07:47 (79) Intake and Output 10/10/18 10/10/18 10/11/18 1515:00 23:00 07:00 IntakeIntake Total 300 ml 360 ml BalanceBalance 300 ml 360 ml Exam Exam General: no acute distress HEENT: NC/AT. pupils are equal. round. NECK: NO JVD. no stridor. CV: RRR. systolic murmur; no gallop or rubs. PULM: no wheezing or rhonchi. Chest: Status post sternotomy GI: SOFT, NT, ND, no rebound or guarding Extremity: trace B/L LE edema. no clubbing. neuro: awake and alert, OX3. Psych: calm and pleasant rectal: deferred CT of the head: 1. No loss of mohamud-white differentiation to suggest acute territorial infarction. Consider CTA of the head/neck or noncontrast MRI of the brain as c linically warranted. 2. No acute intracranial hemorrhage. 3. Minimal chronic microvascular ischemic changes. Labs Result Diagram: 10/11/18 0601 10/11/18 0601 Results 24hrs Laboratory Tests Test 10/10/18 14:04 10/10/18 14:15 10/11/18 06:01 White Blood Count 10.0 10.6 Red Blood Count 4.64 # 4.36 Hemoglobin 12.4 # 11.5 L Hematocrit 39.7 # 36.7 L Mean Corpuscular Volume 85.6 84.2 Mean Corpuscular Hemoglobin 26.7 L 26.4 L Mean Corpuscular 31.2 L 31.3 L Hemoglobin Concent Red Cell Distribution Width 14.0 14.3 Platelet Count 300 281 Mean Platelet Volume 10.3 10.5 H Immature Granulocytes % 0.200 0.300 Neutrophils % 29.4 L 22.8 L Lymphocytes % 30.8 31.1 Monocytes % 3.0 3.4 Eosinophils % 35.9 H 41.5 H Basophils % 0.7 0.9 Nucleated Red Blood Cells % 0.0 0.0 Immature Granulocytes # 0.020 0.030 Neutrophils # 2.9 2.4 Lymphocytes # 3.1 H 3.3 H Monocytes # 0.3 0.4 Eosinophils # 3.6 H 4.4 H Basophils # 0.1 0.1 Nucleated Red Blood Cells # 0.0 0.0 Prothrombin Time 14.0 Prothrombin Time Ratio 1.1 INR International 1.07 Normalized Ratio Activated Partial Thromboplast 29.0 Time Sodium Level 143 144 Potassium Level 4.2 4.0 Chloride Level 107 109 Carbon Dioxide Level 24 24 Anion Gap 12 11 Blood Urea Nitrogen 9 12 Creatinine 0.73 0.77 Est Glomerular Filtrat > 60 > 60 Rate mL/min Glucose Level 114 129 Hemoglobin A1c 5.4 5.5 Calcium Level 9.9 9.3 Total Bilirubin 0.4 0.4 Direct Bilirubin 0.00 0.00 Indirect Bilirubin 0.4 0.4 Aspartate Amino 28 28 Transf (AST/SGOT) Alanine 89 H 72 H Aminotransferase (ALT/SGPT) Alkaline Phosphatase 327 H 247 H Creatine Kinase 53 Creatine Kinase Index 1.4 Creatinine Kinase MB (Mass) 0.74 Troponin I < 0.012 Total Protein 8.5 H 7.3 # Albumin 4.4 3.8 Globulin 4.10 H 3.50 H Albumin/Globulin Ratio 1.07 1.08 Triglycerides Level 80 Cholesterol Level 111 LDL Cholesterol, Calculated 67 HDL Cholesterol 28 L Cholesterol/HDL Ratio 3.9 Urine Color YELLOW Urine Clarity SLIGHTLY CLOUDY A Urine pH 5.0 Urine Specific [place] 1.009 Urine Ketones NEGATIVE Urine Nitrite NEGATIVE Urine Bilirubin NEGATIVE Urine Urobilinogen NEGATIVE Urine Leukocyte Esterase 1+ H Urine Microscopic RBC 4 Urine Microscopic WBC 21 H Urine Squamous FEW Epithelial Cells Urine Hemoglobin NEGATIVE Urine Glucose NEGATIVE Urine Total Protein NEGATIVE Urine Opiates Screen Positive Urine Barbiturates Negative Urine Amphetamines Screen Negative Urine Benzodiazepines Screen Negative Urine Cocaine Screen Negative Urine Cannabinoids Negative Medications Medications Current Medications Ondansetron HCl (Zofran Inj) 4 mg ER BRIDGE PRN IV NAUSEA/VOMITING; Start 10/10/18 at 15:30; Stop 10/11/18 at 15:29 Acetaminophen (Tylenol Tab) 650 mg ER BRIDGE PRN PO .MILD PAIN 1-3 OR TEMP Last administered on 10/10/18at 23:09; Admin Dose 650 MG; Start 10/10/18 at 15:30; Stop 10/11/18 at 15:29 IV Flush (NS 3 ml) 3 ml PER PROTOCOL IV ; Start 10/10/18 at 17:00 Acetaminophen/ Hydrocodone Bitart ([place] (5/325)) 1 tab Q6H PRN PO .MOD PAIN 4- 6; Start 10/10/18 at 17:00 Enoxaparin Sodium (Lovenox) 30 mg DAILY SC Last administered on 10/11/18 08:41; Admin Dose 30 MG; Start 10/11/18 at 09:00 Aspirin (Halfprin) 81 mg DAILY PO Last administered on 10/11/18 08:31; Admin Dose 81 MG; Start 10/11/18 at 09:00 Atorvastatin Calcium (Lipitor) 80 mg HS PO Last administered on 10/10/18at 20:32; Admin Dose 80 MG; Start 10/10/18 at 21:00 Furosemide (Lasix) 20 mg DAILY PRN PO SHORTNESS OF BREATH; Start 10/10/18 at 17:00 Lisinopril (Zestril) 5 mg DAILY PO Last administered on 10/11/18at 08:31; Admin Dose 5 MG; Start 10/11/18 at 09:00 Metoprolol Succinate (Toprol Xl) 25 mg BID PO Last administered on 10/11/18 08:31; Admin Dose 25 MG; Start 10/10/18 at 21:00 Pantoprazole (Protonix Tab) 40 mg DAILY@06 PO Last administered on 10/11/18 05:55; Admin Dose 40 MG; Start 10/10/18 at 17:00 FRANKY HUDSON MD Oct 11, 2018 11:05
[2018-10-11 11:18] VITALS: BP 148/71; PULSE 75; RESP 20
--- NOTE | 2018-10-11 15:42 | PN ---
Date/Time of Note Date/Time of Note DATE: 10/11/18 TIME: 15:42 Assessment/Plan VTE Prophylaxis Risk score (from Ns)>0 risk: 2 SCD applied (from Ns): Yes Pharmacological prophylaxis: heparin Lines/Catheters IV Catheter Type (from [facility] [place]): Saline Lock Assessment/Plan Hospital Course 67 yo female with h/o CAD s/p CABG in June 2018, hypertension who presents with new onset dyspepsia and episode of delirium this morning Dyspepsia: - Continue PPI - EGD pending by Dr Knox Delirium: - Symptoms resolved and she is now back to mental baseline - Perhaps this is due to emotional stress as her daughter seems to be believe - She does not have any localizing neurologic findings to suggest a stroke - Consulted Dr Beckford - MRI brain pending CAD: - Continue aspirin, statin, lisinopirl, metoprolol Result Diagram: 10/11/18 0601 10/11/18 0601 Results 24hrs Laboratory Tests Test 10/11/18 06:01 White Blood Count 10.6 Red Blood Count 4.36 Hemoglobin 11.5 L Hematocrit 36.7 L Mean Corpuscular Volume 84.2 Mean Corpuscular Hemoglobin 26.4 L Mean Corpuscular Hemoglobin Concent 31.3 L Red Cell Distribution Width 14.3 Platelet Count 281 Mean Platelet Volume 10.5 H Immature Granulocytes % 0.300 Neutrophils % 22.8 L Lymphocytes % 31.1 Monocytes % 3.4 Eosinophils % 41.5 H Basophils % 0.9 Nucleated Red Blood Cells % 0.0 Immature Granulocytes # 0.030 Neutrophils # 2.4 Lymphocytes # 3.3 H Monocytes # 0.4 Eosinophils # 4.4 H Basophils # 0.1 Nucleated Red Blood Cells # 0.0 Sodium Level 144 Potassium Level 4.0 Chloride Level 109 Carbon Dioxide Level 24 Anion Gap 11 Blood Urea Nitrogen 12 Creatinine 0.77 Est Glomerular Filtrat Rate mL/min > 60 Glucose Level 129 Hemoglobin A1c 5.5 Calcium Level 9.3 Total Bilirubin 0.4 Direct Bilirubin 0.00 Indirect Bilirubin 0.4 Aspartate Amino Transf (AST/SGOT) 28 Alanine Aminotransferase (ALT/SGPT) 72 H Alkaline Phosphatase 247 H Total Protein 7.3 # Albumin 3.8 Globulin 3.50 H Albumin/Globulin Ratio 1.08 Subjective 24 Hr Interval Summary Free Text/Dictation Mental status normalized Good mentation per patient and family Pending EGD Exam/Review of Systems Exam Vitals Vital Signs Date Temp Pulse Resp B/P (MAP) Pulse Ox O2 O2 Flow FiO2 Time Delivery Rate 10/11/18 98.0 75 20 148/71 98 Room Air 11:18 (96) Intake and Output 10/10/18 10/10/18 10/11/18 1515:00 23:00 07:00 IntakeIntake Total 300 ml 360 ml BalanceBalance 300 ml 360 ml Constitutional: alert, oriented, well developed Psych: no complaints, nl mood/affect Head: normocephalic, atraumatic Eyes: nl conjunctiva, EOMI, nl lids, nl sclera, PERRL ENMT: nl external ears & nose, nl lips & teeth, nl nasal mucosa & septum Neck: supple, non-tender Respiratory: clear to auscultation, normal air movement Cardiovascular: regular rate and rhythm, nl pulses Gastrointestinal: soft, nl liver, spleen, non-tender Musculoskeletal: nl extremities to inspection, nl gait and stance Extremities: normal pulses Neurological: EXPORT PACKER II-XII intact, nl mental status, nl speech, nl strength Skin: nl turgor; No rash or lesions Lymph: nl lymph nodes Results Results 24hrs Laboratory Tests Test 10/11/18 06:01 White Blood Count 10.6 Red Blood Count 4.36 Hemoglobin 11.5 L Hematocrit 36.7 L Mean Corpuscular Volume 84.2 Mean Corpuscular Hemoglobin 26.4 L Mean Corpuscular Hemoglobin Concent 31.3 L Red Cell Distribution Width 14.3 Platelet Count 281 Mean Platelet Volume 10.5 H Immature Granulocytes % 0.300 Neutrophils % 22.8 L Lymphocytes % 31.1 Monocytes % 3.4 Eosinophils % 41.5 H Basophils % 0.9 Nucleated Red Blood Cells % 0.0 Immature Granulocytes # 0.030 Neutrophils # 2.4 Lymphocytes # 3.3 H Monocytes # 0.4 Eosinophils # 4.4 H Basophils # 0.1 Nucleated Red Blood Cells # 0.0 Sodium Level 144 Potassium Level 4.0 Chloride Level 109 Carbon Dioxide Level 24 Anion Gap 11 Blood Urea Nitrogen 12 Creatinine 0.77 Est Glomerular Filtrat Rate mL/min > 60 Glucose Level 129 Hemoglobin A1c 5.5 Calcium Level 9.3 Total Bilirubin 0.4 Direct Bilirubin 0.00 Indirect Bilirubin 0.4 Aspartate Amino Transf (AST/SGOT) 28 Alanine Aminotransferase (ALT/SGPT) 72 H Alkaline Phosphatase 247 H Total Protein 7.3 # Albumin 3.8 Globulin 3.50 H Albumin/Globulin Ratio 1.08 Medications Medication Current Medications IV Flush (NS 3 ml) 3 ml PER PROTOCOL IV ; Start 10/10/18 at 17:00 Acetaminophen/ Hydrocodone Bitart ([place] (5/325)) 1 tab Q6H PRN PO .MOD PAIN 4- 6; Start 10/10/18 at 17:00 Enoxaparin Sodium (Lovenox) 30 mg DAILY SC Last administered on 10/11/18at 08:41; Admin Dose 30 MG; Start 10/11/18 at 09:00 Aspirin (Halfprin) 81 mg DAILY PO Last administered on 10/11/18 08:31; Admin Dose 81 MG; Start 10/11/18 at 09:00 Atorvastatin Calcium (Lipitor) 80 mg HS PO Last administered on 10/10/18at 20:32; Admin Dose 80 MG; Start 10/10/18 at 21:00 Furosemide (Lasix) 20 mg DAILY PRN PO SHORTNESS OF BREATH; Start 10/10/18 at 17:00 Lisinopril (Zestril) 5 mg DAILY PO Last administered on 10/11/18at 08:31; Admin Dose 5 MG; Start 10/11/18 at 09:00 Metoprolol Succinate (Toprol Xl) 25 mg BID PO Last administered on 10/11/18at 08:31; Admin Dose 25 MG; Start 10/10/18 at 21:00 Pantoprazole (Protonix Tab) 40 mg DAILY@06 PO Last administered on 10/11/18at 05:55; Admin Dose 40 MG; Start 10/10/18 at 17:00 ARABELLA BERRY MD Oct 11, 2018 15:42
[2018-10-11 15:49] VITALS: BP 138/69; PULSE 72; RESP 20
[2018-10-11 19:27] VITALS: BP 122/59; PULSE 80; RESP 20
[2018-10-11] MEDS: ATORVASTATIN 80 MG TAB PO SCH (20:34)
[2018-10-11 23:26] VITALS: BP 104/57; PULSE 70; RESP 20
[2018-10-12] VITALS (10 sets, daily range): BP systolic 109–166; BP diastolic 58–79; PULSE 66–95; RESP 16–23
[2018-10-12] MEDS: PANTOPRAZOLE (EC) 40 MG TAB PO SCH (05:36)
--- NOTE | 2018-10-12 06:53 | PN ---
DATE: 10/11/2018 SUBJECTIVE: The patient at this time complains of epigastric pain. She was admitted with a transien t episode of confusion and not feeling well from the PSYCHOLOGIST COUNSELING standpoint. Brain CT, MRA was normal. No s troke is noted. Because of the persistent abdominal pain, GI consultation is requested. PHYSICAL EXAMINATION: GENERAL: The patient appears to be healthy, not in distress. ABDOMEN: Unremarkable. LABORATORY WORKUP: The hemoglobin came down to 11.5. The liver panel: ALT is 247, AST is 72. The etiology for this abnormal liver function not known. Rule out biliary tract disease. PLAN: Recommend ultrasound of the upper abdomen and also recommend we will proceed with EGD as plann ed. Dictated By: SAQIB AGUILAR MD NC/NTS Conf#: [id number] DID#: [id number] CC: ARABELLA BERRY MD;*EndCC*
--- NOTE | 2018-10-12 09:27 | PREAC ---
Date/Time of Note Date/Time of Note DATE: 10/12/18 TIME: : Anesthesia Eval and Record Evaluation Time Pre-Procedure Interview DATE: 10/12/18 TIME: : Age 67 Sex female NPO: 8 hrs Preoperative diagnosis epigastric pain Planned procedure EGD Past Medical History Past Medical History: Includes Cardio: HTN, CAD, CABG Surgery & Anesthesia Issues No known issue Meds Anticoagulation: No Beta Mily within 24 hr: Yes Reason Beta Mily not given: Bradycarida, Hypotension Active Scripts Furosemide* (Lasix*) 20 Mg Tablet, 20 MG PO DAILY PRN for SHORTNESS OF BREATH, #30 TAB Prov:MAXIMO SHAH 09/04/18 Metoprolol Succinate* (Toprol XL*) 25 Mg Tab.sr.24h, 25 MG PO BID, #60 TAB Prov:MAXIMO SHAH 09/04/18 Atorvastatin* (Atorvastatin*) 80 Mg Tablet, 80 MG PO HS, #60 TAB Prov:MAXIMO SHAH 09/04/18 Reported Medications Lisinopril* (Lisinopril*) 5 Mg Tablet, 5 MG PO DAILY, #30 TAB 10/10/18 Acetaminophen with Codeine (Acetaminophen-Cod #3 Tablet) 1 Each Tablet, 1 TAB PO Q6H PRN for PRN, #7 TAB 10/10/18 Aspirin* (Aspirin* EC) 81 Mg Tablet.dr, 81 MG PO DAILY, TAB 10/10/18 Discontinued Reported Medications Pantoprazole* (Pantoprazole*) 20 Mg Tablet.dr, 20 MG PO BID, TAB 08/24/18 Discontinued Scripts Oxycodone HCl/Acetaminophen (Oxycodone-Acetaminophen 5-325) 1 Each Tablet, 1 TAB PO Q4 PRN for PAIN LEVEL 1-5, #30 TAB Prov:MAXIMO SHAH 09/04/18 Aspirin (Aspirin Lite-Coat) 325 Mg Tablet, 325 MG PO DAILY, #60 TAB Prov:MAXIMO SHAH 09/04/18 Nitroglycerin* (Nitroglycerin* SL) 0.4 Mg Tab.subl, 1 TAB SL Q5M PRN for .CHEST PAIN, #60 TAB Prov:MAXIMO SHAH 09/04/18 Lisinopril* (Lisinopril*) 5 Mg Tablet, 5 MG PO DAILY, #60 TAB Prov:MAXIMO SHAH 09/04/18 Current Medications IV Flush (NS 3 ml) 3 ml PER PROTOCOL IV ; Start 10/10/18 at 17:00 Acetaminophen/ Hydrocodone Bitart ([place] (5/325)) 1 tab Q6H PRN PO .MOD PAIN 4- 6; Start 10/10/18 at 17:00 Enoxaparin Sodium (Lovenox) 30 mg DAILY SC Last administered on 10/11/18at 08:41; Admin Dose 30 MG; Start 10/11/18 at 09:00 Aspirin (Halfprin) 81 mg DAILY PO Last administered on 10/11/18at 08:31; Admin Dose 81 MG; Start 10/11/18 at 09:00 Atorvastatin Calcium (Lipitor) 80 mg HS PO Last administered on 10/11/18at 20:34; Admin Dose 80 MG; Start 10/10/18 at 21:00 Furosemide (Lasix) 20 mg DAILY PRN PO SHORTNESS OF BREATH; Start 10/10/18 at 17:00 Lisinopril (Zestril) 5 mg DAILY PO Last administered on 10/11/18at 08:31; Admin Dose 5 MG; Start 10/11/18 at 09:00 Metoprolol Succinate (Toprol Xl) 25 mg BID PO Last administered on 10/11/18at 21:37; Admin Dose 25 MG; Start 10/10/18 at 21:00 Pantoprazole (Protonix Tab) 40 mg DAILY@06 PO Last administered on 10/11/18at 05:55; Admin Dose 40 MG; Start 10/10/18 at 17:00 Meds reviewed: Yes Allergies Coded Allergies: tramadol (Verified Allergy, Intermediate, itching, 08/28/18) Allergies Reviewed: Yes Labs/Studies Labs Reviewed: Reviewed by anesthesiologist Result Diagram: 10/11/1860010/11/18600 test: N/A Pre-procedure Exam Last vitals Vital Signs Date Temp Pulse Resp B/P (MAP) Pulse Ox O2 O2 Flow FiO2 Time Delivery Rate 10/12/18 98.0 72 20 109/58 96 Room Air 07:34 (75) Airway: Adequate mouth opening, Adequate thyromental dist Mallampati: Mallampati II Teeth: Normal Lung: Normal Heart: Normal ASA Physical Status ASA physical status: 3 Emergency: None Planned Anesthetic General/MAC: Mask Planned Pain Management Parenteral pain med Pre-operative Attestations Prior to commencing anesthesia and surgery, the patient was re-evaluated, there was verification of: *The patient's identity *The results of appropriate recent lab work and preoperative vital signs *The above evaluation not changing prior to induction *Anesthetic plan, risk benefits, alternative and complications discussed with patient/family; questions answered; patient/family understands, accepts and wishes to proceed. Network And Threat Support Specialist used MIKE WOODARD MD Oct 12, 2018 09:27
--- NOTE | 2018-10-12 09:45 | CONS ---
Consult Date/Type/Reason Admit Date/Time Oct 10, 2018 at 15:13 Initial Consult Date 10/11/18 Requesting Provider: ARABELLA BERRY MD Date/Time of Note DATE: 10/12/18 TIME: 09:43 Subjective Interventional cardiology follow-up progress note Subjective: Discussed with staff. Discussed with Dr. Omalley. Telemetry was reviewed. Patient has remained sinus rhythm with no evidence of atrial fibrillation overnight. No report of any chest pain or pressure no reports of any bleeding Objective: General: no acute distress HEENT: NC/AT. pupils are equal. round. NECK: NO JVD. no stridor. CV: RRR. systolic murmur; no gallop or rubs. PULM: no wheezing or rhonchi. Chest: Status post sternotomy GI: SOFT, NT, ND, no rebound or guarding Extremity: trace B/L LE edema. no clubbing. neuro: awake and alert, OX3. Psych: calm and pleasant rectal: deferred CT of the head: 1. No loss of mohamud-white differentiation to suggest acute territorial infarction. Consider CTA of the head/neck or noncontrast MRI of the brain as clinically warranted. 2. No acute intracranial hemorrhage. 3. Minimal chronic microvascular ischemic changes. Objective Vitals Vital Signs Date Temp Pulse Resp B/P (MAP) Pulse Ox O2 O2 Flow FiO2 Time Delivery Rate 10/12/18 98.0 72 20 109/58 96 Room Air 07:34 (75) Intake and Output 10/11/18 10/11/18 10/12/18 1515:00 23:00 07:00 IntakeIntake Total 800 ml OutputOutput Total 3 ml BalanceBalance 797 ml Results/Medications Result Diagram: 10/11/18 0610/11/18 06 Home Meds Active Scripts Furosemide* (Lasix*) 20 Mg Tablet, 20 MG PO DAILY PRN for SHORTNESS OF BREATH, #30 TAB Prov:MAXIMO SHAH 09/04/18 Metoprolol Succinate* (Toprol XL*) 25 Mg Tab.sr.24h, 25 MG PO BID, #60 TAB Prov:MAXIMO SHAH 09/04/18 Atorvastatin* (Atorvastatin*) 80 Mg Tablet, 80 MG PO HS, #60 TAB Prov:MAXIMO SHAH 09/04/18 Reported Medications Lisinopril* (Lisinopril*) 5 Mg Tablet, 5 MG PO DAILY, #30 TAB 10/10/18 Acetaminophen with Codeine (Acetaminophen-Cod #3 Tablet) 1 Each Tablet, 1 TAB PO Q6H PRN for PRN, #7 TAB 10/10/18 Aspirin* (Aspirin* EC) 81 Mg Tablet.dr, 81 MG PO DAILY, TAB 10/10/18 Discontinued Reported Medications Pantoprazole* (Pantoprazole*) 20 Mg Tablet.dr, 20 MG PO BID, TAB 08/24/18 Discontinued Scripts Oxycodone HCl/Acetaminophen (Oxycodone-Acetaminophen 5-325) 1 Each Tablet, 1 TAB PO Q4 PRN for PAIN LEVEL 1-5, #30 TAB Prov:MAXIMO SHAH 09/04/18 Aspirin (Aspirin Lite-Coat) 325 Mg Tablet, 325 MG PO DAILY, #60 TAB Prov:MAXIMO SHAH 09/04/18 Nitroglycerin* (Nitroglycerin* SL) 0.4 Mg Tab.subl, 1 TAB SL Q5M PRN for .CHEST PAIN, #60 TAB Prov:MAXIMO SHAH 09/04/18 Lisinopril* (Lisinopril*) 5 Mg Tablet, 5 MG PO DAILY, #60 TAB Prov:MAXIMO SHAH 09/04/18 Medications Current Medications IV Flush (NS 3 ml) 3 ml PER PROTOCOL IV ; Start 10/10/18 at 17:00 Acetaminophen/ Hydrocodone Bitart ([employer] (5/325)) 1 tab Q6H PRN PO .MOD PAIN 4- 6; Start 10/10/18 at 17:00 Enoxaparin Sodium (Lovenox) 30 mg DAILY SC Last administered on 10/11/18at 08:41; Admin Dose 30 MG; Start 10/11/18 at 09:00 Aspirin (Halfprin) 81 mg DAILY PO Last administered on 10/11/18at 08:31; Admin Dose 81 MG; Start 10/11/18 at 09:00 Atorvastatin Calcium (Lipitor) 80 mg HS PO Last administered on 10/11/18at 20:34; Admin Dose 80 MG; Start 10/10/18 at 21:00 Furosemide (Lasix) 20 mg DAILY PRN PO SHORTNESS OF BREATH; Start 10/10/18 at 17:00 Lisinopril (Zestril) 5 mg DAILY PO Last administered on 10/11/18at 08:31; Admin Dose 5 MG; Start 10/11/18 at 09:00 Metoprolol Succinate (Toprol Xl) 25 mg BID PO Last administered on 10/11/18at 21:37; Admin Dose 25 MG; Start 10/10/18 at 21:00 Pantoprazole (Protonix Tab) 40 mg DAILY@06 PO Last administered on 10/11/18at 05:55; Admin Dose 40 MG; Start 10/10/18 at 17:00 Assessment/Plan Hospital Course (Demo Recall) 1. Cardiovascular preop evaluation 2. Odynophagia and abdominal discomfort 3. Coronary artery disease 4. Status post non-ST elevation myocardial infarction August 2018 5. Status post coronary artery bypass graft 2018 6. Anemia appears to be stable 7. Hypertension: Under good control 8. History of congestive heart failure. Currently stable 9. Dyslipidemia on a statin 10. Confusion and altered level of consciousness: Has resolved now Recommendations: Continue with aspirin as long as okay with GI Neuro work-up as per internal medicine. Head CT has been unremarkable. MRI was unremarkable Continue with the beta-regi statins EARLENE inhibitor will be continued. Patient is optimized from the cardiac extent with low risk of cardiovascular event for endoscopy procedure. No further cardiac work-up would be indicated. Awaiting endoscopy today. Patient has been scheduled to follow-up with me in the office on October 26, 2018 at 11:45 AM Thank you for his referral. We will continue to follow along with you FRANKY HUDSON MD [facility] FRANKY HUDSON MD Oct 12, 2018 09:45
[2018-10-12] MEDS ORDERED: LIDOCAINE 2% (SDV) 5 ML INJ ONE (09:55)
[2018-10-12] MEDS ORDERED: PROPOFOL 20 ML ONE (09:55)
--- NOTE | 2018-10-12 10:07 | RADRPT ---
Echocardiogram Report Patient Name: DELIA COXPatient ID: [id number] : 1950 (67y 10m)Study Date: 10/11/2018 2:38:43 PM Gender: FAccession #: [id number] Tech: Mike Valdez [facility] Location: [address] Ref.Physician: MAGDA HILARIO Height(Cm): BSA: Weight(Kg): Quality: Technically Difficult StudyOrder Physician: MAGDA HILARIO Account #: Procedures: Echocardiographic Report: Transthoracic echocardiogram examination. Indications: Stroke work up. Measurements: 2D/M Mode Measurement Value Normal Range LVIDd 2D 4.7 [ 3.8 - 5.2 ] cm LVIDs 2D 3.1 [ 2.2 - 3.5 ] cm IVSd 2D 0.9 [ 0.6 - 0.9 ] cm AoR Diam 2D 2.7 [ 2.3 - 3.1 ] cm LA Dimen 2D 3.3 [ 2.7 - 3.8 ] cm Findings: Left Ventricle: Normal left ventricular cavity size. Lower limits of normal left ventricular systolic function. Normal left ventricular wall thickness. The left ventricle is not well visualized. Paradoxical septal motion consistent with post pericardectomy status. The left ventricular ejection fraction is visually estimated at 50 %. Right Ventricle: Normal right ventricular size. Normal right ventricular systolic function. Left Atrium: The left atrium is normal in size and appearance. Right Atrium: The right atrium is normal in size and appearance. Mitral Valve: Mild mitral annular calcification. Calcified Leaflets Mitral valve leaflet appear mildly clacified. Aortic Valve: Aortic cusps appear mildly calcified. Tricuspid Valve: Normal appearance and function of the tricuspid valve with trace physiologic regurgitation. Pericardium: Normal pericardium with no significant pericardial effusion. Left pleural effusion seen. IVC: Normal inferior vena cava appearance and respiratory collapse. Conclusions: Normal left ventricular cavity size. Lower limits of normal left ventricular systolic function. Normal left ventricular wall thickness. The left ventricle is not well visualized. Paradoxical septal motion consistent with post pericardectomy status. The left ventricular ejection fraction is visually estimated at 50 %. Electronically Signed By: Louis Sharif 2018-10-12 10:06:30 PDT
--- NOTE | 2018-10-12 11:10 | CONS ---
Assessment/Plan Assessment/Plan Assessment/Plan (Recall) 67 F c/ CAD and other comorbidities, who presents for evaluation of transient ams x 5 hours. UA equivocal The clinical picture suggests an acute toxic-metabolic encephalopathy. MRI brain is reassuringly negative for acute intracranial pathology. CTA head/neck is unrevealing P: [place] as necessary Limit sedating medications where possible PT/OT/ST as necessary Other medical management and other supportive care per primary Will follow Consultation Date/Type/Reason Admit Date/Time Oct 10, 2018 at 15:13 Type of Consult Neurology Reason for Consultation transient ams Requesting Provider: ARABELLA BERRY MD Date/Time of Note DATE: 10/12/18 TIME: 11:09 24 HR Interval Summary Free Text/Dictation s/p MRI brain Exam/Review of Systems Exam Vitals Vital Signs Date Temp Pulse Resp B/P (MAP) Pulse Ox O2 O2 Flow FiO2 Time Delivery Rate 10/12/18 97.9 66 18 125/65 96 Room Air 10:56 (85) 10/12/18 6.0 10:27 Intake and Output 10/11/18 10/11/18 10/12/18 1515:00 23:00 07:00 IntakeIntake Total 800 ml OutputOutput Total 3 ml BalanceBalance 797 ml Results Result Diagram: 10/11/18 0601 10/11/18 0601 Medications Medication Current Medications IV Flush (NS 3 ml) 3 ml PER PROTOCOL IV ; Start 10/10/18 at 17:00 Acetaminophen/ Hydrocodone Bitart ([place] (5/325)) 1 tab Q6H PRN PO .MOD PAIN 4- 6; Start 10/10/18 at 17:00 Enoxaparin Sodium (Lovenox) 30 mg DAILY SC Last administered on 10/11/18at 08:41; Admin Dose 30 MG; Start 10/11/18 at 09:00 Aspirin (Halfprin) 81 mg DAILY PO Last administered on 10/11/18at 08:31; Admin Dose 81 MG; Start 10/11/18 at 09:00 Atorvastatin Calcium (Lipitor) 80 mg HS PO Last administered on 10/11/18at 20:34; Admin Dose 80 MG; Start 10/10/18 at 21:00 Furosemide (Lasix) 20 mg DAILY PRN PO SHORTNESS OF BREATH; Start 10/10/18 at 17:00 Lisinopril (Zestril) 5 mg DAILY PO Last administered on 10/11/18at 08:31; Admin Dose 5 MG; Start 10/11/18 at 09:00 Metoprolol Succinate (Toprol Xl) 25 mg BID PO Last administered on 10/11/18at 21:37; Admin Dose 25 MG; Start 10/10/18 at 21:00 Pantoprazole (Protonix Tab) 40 mg DAILY@06 PO Last administered on 10/11/18at 05:55; Admin Dose 40 MG; Start 10/10/18 at 17:00 MAGDA HILARIO Oct 12, 2018 11:10
--- NOTE | 2018-10-12 11:31 | PAC ---
Date/Time of Note Date/Time of Note DATE: 10/12/18 TIME: 10:23 Post-Anesthesia Notes Post-Anesthesia Note Last documented vital signs Vital Signs Date Temp Pulse Resp B/P (MAP) Pulse Ox O2 O2 Flow FiO2 Time Delivery Rate 10/12/18 98.0 72 20 109/58 96 Room Air 07:34 (75) Activity: WNL Respiratory function: WNL Cardiovascular function: WNL Mental status: Baseline Pain reasonably controlled: Yes Hydration appropriate: Yes Nausea/Vomiting absent: Yes Comments BP: 110/68 HR:76 RR: 15 T: 98 SaO2: 100% MIKE WOODARD MD Oct 12, 2018 11:30
[2018-10-12] MEDS: ASPIRIN (EC) 81 MG TAB PO SCH (11:42)
[2018-10-12] MEDS: LISINOPRIL 5 MG TAB PO SCH (11:43)
[2018-10-12] MEDS: METOPROLOL (XL) 25 MG TAB PO SCH (11:43)
[2018-10-12] MEDS: ENOXAPARIN 30 MG/0.3 ML SYG SC SCH (11:52)
--- NOTE | 2018-10-12 16:20 | DS ---
Date/Time of Note Date/Time of Note DATE: 10/12/18 TIME: 16:19 Discharge Summary Admission/Discharge Info Admit Date/Time Oct 10, 2018 at 15:13 Discharge Date/Time Discharge Diagnosis Delirium Patient Condition: Stable Hx of Present Illness 67 yo female with h/o CABG in June, hypertension who presents with dyspepsia and episode of delirium this AM Patient had CABG this june. Did well post operatively Over past couple weeks she has developed epigastric discomfort with food. She has not been eating as a result. Sometimes nauseous No weight loss or blood in stool This morning she woke up and had episode of confusion. says she didn't know where she was, who he was. Very confused but symtposm resolved and she is now back to normal. She did not have any localizing neurologic symptoms Hospital Course 67 yo female with h/o CAD s/p CABG in June 2018, hypertension who presents with new onset dyspepsia and episode of delirium the morning of presnetation Dyspepsia: - She was given a PPI. EGD was performed by Dr Knox without pathologic findings Delirium: - Symptoms resolved and she is now back to mental baseline - MRI brain was normal CAD: - Continued on aspirin, statin, lisinopirl, metoprolol Discharged to self care as an outpateint Home Meds Active Scripts Furosemide* (Lasix*) 20 Mg Tablet, 20 MG PO DAILY PRN for SHORTNESS OF BREATH, #30 TAB Prov:MAXIMO SHAH 09/04/18 Metoprolol Succinate* (Toprol XL*) 25 Mg Tab.sr.24h, 25 MG PO BID, #60 TAB Prov:MAXIMO SHAH 09/04/18 Atorvastatin* (Atorvastatin*) 80 Mg Tablet, 80 MG PO HS, #60 TAB Prov:MAXIMO SHAH 09/04/18 Reported Medications Lisinopril* (Lisinopril*) 5 Mg Tablet, 5 MG PO DAILY, #30 TAB 10/10/18 Acetaminophen with Codeine (Acetaminophen-Cod #3 Tablet) 1 Each Tablet, 1 TAB PO Q6H PRN for PRN, #7 TAB 10/10/18 Aspirin* (Aspirin* EC) 81 Mg Tablet., 81 MG PO DAILY, TAB 10/10/18 Discontinued Reported Medications Pantoprazole* (Pantoprazole*) 20 Mg Tablet., 20 MG PO BID, TAB 08/24/18 Discontinued Scripts Oxycodone HCl/Acetaminophen (Oxycodone-Acetaminophen 5-325) 1 Each Tablet, 1 TAB PO Q4 PRN for PAIN LEVEL 1-5, #30 TAB Prov:MAXIMO SHAH 09/04/18 Aspirin (Aspirin Lite-Coat) 325 Mg Tablet, 325 MG PO DAILY, #60 TAB Prov:MAXIMO SHAH 09/04/18 Nitroglycerin* (Nitroglycerin* SL) 0.4 Mg Tab.subl, 1 TAB SL Q5M PRN for .CHEST PAIN, #60 TAB Prov:MAXIMO SHAH 09/04/18 Lisinopril* (Lisinopril*) 5 Mg Tablet, 5 MG PO DAILY, #60 TAB Prov:MAXIMO SHAH 09/04/18 Primary Care Provider Care Physician No Primary Pending Labs Laboratory Tests Test 10/12/18 11:47 Hepatitis B Surface Antigen Pending Hepatitis B Core Total Antibody Pending Hepatitis C Antibody Pending Microbiology Date/Time Source Procedure Growth Status 10/11/18 16:30 Clean Catch Urine Urine Culture - Preliminary Resulted ARABELLA BERRY MD Oct 12, 2018 16:20
--- NOTE | 2018-10-12 17:41 | PDOCDIS ---
Discharge Instructions DIAGNOSIS Discharge Diagnosis Gastritis Delirium CONDITION [id number] Patient Condition: [id number] Stable FOLLOW UP/APPOINTMENTS Follow-up Plan Continue your medications as prescribed ARABELLA BERRY MD Oct 12, 2018 17:41
== END 2018-10-12 19:34 | disposition home or self-care (01) ==
LOC: E/R 13:36 → TEL 15:13 → SUATTDRO 15:43 → TEL 10-11 06:47
PROVIDERS: ADMIT Internal Medicine; ATTEND Internal Medicine
DX: R41.0 Disorientation, unspecified (principal); K29.50 Unspecified chronic gastritis without bleeding; I25.10 Atherosclerotic heart disease of native coronary artery without angina pectoris; Z95.1 Presence of aortocoronary bypass graft; D64.9 Anemia, unspecified; E78.5 Hyperlipidemia, unspecified; I11.0 Hypertensive heart disease with heart failure; I50.9 Heart failure, unspecified; Z79.82 Long term (current) use of aspirin
CPT/HCPCS: 36415; 43239; 70450; 70496; 70498; 70551; 71045; 76700; 80053; 80061; 80307; 81001; 82550; 82553; 83036; 84484; 85025; 85610; 85730; 86038; 86704; 86709; 86803; 87086; 87340; 88305; 88312; 93005; 93308; 97161; 99285; G0378; J1650; Q9967; J2405